=== PATIENT | female | born 1960 | race Caucasian/White ===

== ENCOUNTER → 2017-08-11 | Outpatient (CLI) | payer OTHER ==
--- NOTE | 2017-08-11 10:29 | CT ---
EXAMINATION TYPE: CT sinus wo con DATE OF EXAM: 08/11/2017 COMPARISON: NONE HISTORY: Sinusitis CT DLP: 609.[address] of the paranasal sinuses was performed in the axial and coronal planes. Bone and soft tissue settings are submitted. The paranasal sinuses demonstrate normal aeration and development. Minimal mucosal thickening left maxillary sinus. No air fluid levels. The osteal meatal units are patent bilaterally. The nasal septum is midline. No bony destructive changes are seen within the field of view. IMPRESSION: Minimal mucosal thickening left maxillary sinus.
== END | disposition home or self-care (01) ==
LOC: RADCTMAIN 09:41
PROVIDERS: ATTEND Family Medicine
DX: J34.89 Other specified disorders of nose and nasal sinuses (principal)
CPT/HCPCS: 70486

== ENCOUNTER → 2017-12-08 | Outpatient (CLI) | payer OTHER ==
--- NOTE | 2017-12-08 10:59 | US ---
EXAMINATION TYPE: US abdomen complete DATE OF EXAM: 12/08/2017 COMPARISON: CT 2017 CLINICAL HISTORY: R10.11 Right upper quadrant pain. Intermittent RUQ pain and nausea x 6 months, hist ory of cholecystectomy EXAM MEASUREMENTS: Liver Length: 17.9 cm Gallbladder Wall: surgically absent CBD: 1.0 cm Spleen: 14.5 cm Right Kidney: 11.1 x 5.5 x 5.4 cm Left Kidney: 12.6 x 5.3 x 5.3 cm Difficult and limited study due to patient body habitus Pancreas: visualized portions wnl, tail obscured by overlying midline bowel gas Liver: measures in upper limits of normal, mildly heterogeneous Gallbladder: surgically absent Evidence for sonographic Butler's sign: yes CBD: measures in upper limits of normal for post cholecystectomy Spleen: enlarged Right Kidney: wnl Left Kidney: 2.1 x 1.3 x 1.6cm complex area medial mid pole, possible parapelvic cyst Upper IVC: wnl Abd Aorta: visualized portions wnl, distal portion obscured by overlying midline bowel gas IMPRESSION: 1. Peripelvic cyst is suspected within the left mid kidney.
== END | disposition home or self-care (01) ==
LOC: RADUSWWP 07:03
PROVIDERS: ATTEND Family Medicine
DX: R10.11 Right upper quadrant pain (principal)
CPT/HCPCS: 76700

== ENCOUNTER → 2018-06-08 | Outpatient (CLI) | payer OTHER ==
--- NOTE | 2018-06-11 13:20 | MM ---
Reason for exam: clinical finding. Last mammogram was performed 5 years and 11 months ago. History: Patient is postmenopausal. Indicated problem(s): non-bloody discharge in the right breast. Physical Findings: Nurse did not find any significant physical abnormalities on exam. MG Diagnostic Mammo w CAD MATTHEW Bilateral CC, MLO, and XCCL view(s) were taken. Prior study comparison: June 28, 2012, bilateral digital screening mammo w/CAD. May 07, 2009, bilateral digital screening mammogram. There are scattered fibroglandular densities. No discrete abnormality. ASSESSMENT: Incomplete: need additional imaging evaluation, BI-RAD 0 RECOMMENDATION: Ultrasound of both breasts.
--- NOTE | 2018-06-11 13:24 | USB ---
History: Patient is postmenopausal. US Breast BILAT Bilateral complete breast ultrasound includes all four quadrants, the retroareolar region and axilla. Finding demonstrates Posterior nipple on the right breast ductal ectasia. No other solid or cystic lesion seen in either breast. These results were verbally communicated with the patient and result sheet given to the patient on 06/08/18. ASSESSMENT: Benign, BI-RAD 2 RECOMMENDATION: Clinical management. Routine screening mammogram of both breasts in 1 year.
== END ==
LOC: RADMAMWWP 14:02
PROVIDERS: ATTEND Family Medicine
DX: R92.8 Other abnormal and inconclusive findings on diagnostic imaging of breast (principal)
CPT/HCPCS: 77066

== ENCOUNTER 2018-12-24 12:10 | Emergency (ER) | payer OTHER ==
[2018-12-24 12:24] VITALS: RESP 18; TEMP 98.9
--- NOTE | 2018-12-24 12:40 | ED ---
Upper Extremity HPI - General Chief Complaint: Extremity Injury, Upper Stated Complaint: Hand/finger laceration Source: patient Mode of arrival: wheelchair Limitations: no limitations - History of Present Illness Initial Comments: 4-year-old female presented for chief complaint of finger laceration. Patient states she cut her left middle finger with a silk trimmer. She states there are 2 areas that were cut by the tremor. She states there is a very superficial laceration to the tip of the deeper one at the base. Patient states that she is able to range the finger and has full sensation at the tip. Patient denies any other areas of injury. Patient is unsure of her last tetanus. Remaining ROS (- ). upon arrival patient appears well but active bleeding. - Related Data Home Medications Medication Instructions Recorded Confirmed Aspirin EC [Ecotrin] 81 mg PO DAILY 03/26/14 04/13/17 Citalopram Hydrobromide 40 mg PO QAM 03/26/14 04/15/17 [Citalopram HBr] HYDROcodone/APAP 7.5-325MG [Palo 1 tab PO Q6H PRN 12/03/14 04/15/17 7.5-325] Pregabalin [Lyrica] 150 mg PO BID 12/03/14 04/15/17 Esomeprazole Magnesium [NexIUM] 20 mg PO DAILY 01/17/15 04/15/17 L.acidoph,Paracasei, B.lactis 1 each PO DAILY 04/13/17 04/15/17 [Probiotic] Meloxicam 15 mg PO DAILY 04/13/17 04/13/17 Previous Rx's Medication Instructions Recorded Cephalexin [Keflex] 500 mg PO Q8HR 7 Days #21 cap 12/24/18 Allergies Allergy/AdvReac Type Severity Reaction Status Date / Time No Known Allergies Allergy Verified 04/15/17 07:24 Review of Systems ROS Statement: Those systems with pertinent positive or pertinent negative responses have been documented in the HPI. ROS Other: All systems not noted in ROS Statement are negative. Past Medical History Past Medical History: GERD/Reflux, Osteoarthritis (OA) Additional Past Medical History / Comment(s): Hiatal Hernia,steroid injection Feb 2017 History of Any Multi-Drug Resistant Organisms: None Reported Past Surgical History: Back Surgery, Cholecystectomy, Hysterectomy Additional Past Surgical History / Comment(s): LOWER BACK FUSION, EGD, COLONOSCOPY. Past Anesthesia/Blood Transfusion Reactions: No Reported Reaction Past Psychological History: Anxiety Smoking Status: Former smoker Past Alcohol Use History: Daily Past Drug Use History: Marijuana - Past Family History Mother Family Medical History: No Reported History Additional Family Medical History / Comment(s): PARKINSONS Father Family Medical History: Hypertension General Exam - General Exam Comments Initial Comments: General: The patient is awake and alert, in no distress, and does not appear acutely ill. Eye: Pupils are equal, round and reactive to light, extra-ocular movements are intact. No nystagmus. There is normal conjunctiva bilaterally. No signs of icterus. Cardiovascular: There is a regular rate and rhythm. No murmur, rub or gallop is appreciated. Respiratory: Lungs are clear to auscultation, respirations are non-labored, breath sounds are equal. No wheezes, stridor, rales, or rhonchi. Musculoskeletal: Normal ROM, no tenderness. Strength 5/5. Sensation intact. Pulses equal bilaterally 2+. Neurological: A&O x 3. CN II-XII intact, There are no obvious motor or sensory deficits. Coordination appears grossly intact. Speech is normal. Skin: Skin is warm and dry and no rashes, irregular laceration approximately 2.5cm of the left middle finger just distal to the MCP joint on the ventral aspect. Patient is able to range at the digit at the DIP and PIP. No obvious limitations. Patient refuses to strength test secondary to pain. At the tip on the ventral aspect of the third digit of the left hand there is a very small skin flap less than 1cm Edges approximated. Psychiatric: Cooperative, appropriate mood & affect, normal judgment. Limitations: no limitations Course Vital Signs 12/24/18 12:22 Temperature 98.9 F Pulse Rate 81 Respiratory 18 Rate Blood Pressure 141/94 O2 Sat by Pulse 97 Oximetry Procedures - Laceration Laceration #1 Consent Obtained: verbal consent Indication: laceration Site: hand, other (left third digit ventral aset) Size (cm): 2 Description: irregular Depth: involves tendon Anesthetic Used: lidocaine 1% Anesthesia Technique: nerve block Amount (mls): 5 Pre-repair: wound explored, irrigated extensively Size of Sutures: 5-0 Number of Sutures: 5 Technique: simple, interrupted Patient Tolerated Procedure: well, no complications Additional Comments: skin edges very irregular due to the cause of injury, approximated wound edges loosely as Dr. Keane recommended upon consultation. Medical Decision Making - Medical Decision Making 4-year-old female presented for chief complaint of left middle finger laceration from hedge trimmers. Laceration extensively irrigated, digital block performed. wound edges approximated. ROM intact, no fixed positioning. Strength tested after repair appears intact. Prior to anesthesia sensation intact. Capillary refill prior to and after repair < 3 seconds. XR no FB or osseous inju ry. Tetatnus updated. Abx initiated. Consulted ortho with concern for tendon injury given location and depth of cut. Recommend abx, bandage, repair and discharge with f/u Wednesday. Patient agreeable with care plan aware of importance of abx, and followup. Disposition Clinical Impression: Finger laceration, Finger laceration involving tendon Disposition: HOME SELF-CARE Condition: Good Instructions (If sedation given, give patient instructions): Finger Laceration (ED), Tendon Laceration (ED) Additional Instructions: Please use medication as discussed. Please follow-up with orthopedic surgery on Wednesday, Dr. Keane--number provided below. Please return to emergency room if the symptoms increase or worsen or for any other concerns. Prescriptions: Cephalexin [Keflex] 500 mg PO Q8HR 7 Days #21 cap Is patient prescribed a controlled substance at d/c from ED?: No Referrals: Jerry Lovelace MD [Primary Care Provider] - 1-2 days Leonardo Keane MD [STAFF PHYSICIAN] - 1-2 days Time of Disposition: 14:31
[2018-12-24] MEDS ORDERED: DIPH,PERTUS(ACELL)TETVAC-LF 0.5 ML VIAL IM ONE (12:41)
[2018-12-24] MEDS ORDERED: ceFAZolin 1,000 MG VIAL (IM USE) IM STA (12:46)
[2018-12-24] MEDS ORDERED: LIDOCAINE 1% INJ 10MG/ML (20 ML MDV) SQ ONE (13:00)
[2018-12-24] MEDS ORDERED: Acetaminophen-Codeine 300-30mg TAB PO STA (13:02)
--- NOTE | 2018-12-24 13:10 | XR ---
EXAMINATION TYPE: XR hand complete LT DATE OF EXAM: 12/24/2018 COMPARISON: NONE HISTORY: Pain third digit TECHNIQUE: Three views are submitted. FINDINGS: The osseous structures are intact. The joint spaces are preserved and there is no acute fracture or dislocation. Diffuse osteopenia IMPRESSION: 1. No definite acute fracture or dislocation if symptoms persist, follow-up study in 7 to 10 days wo uld be suggested
[2018-12-24 15:15] VITALS: BP 136/78; PULSE 69
== END 2018-12-24 14:45 | disposition home or self-care (01) ==
LOC: EC 12:10
DX: S61.213A Laceration without foreign body of left middle finger without damage to nail, initial encounter (principal); K21.9 Gastro-esophageal reflux disease without esophagitis; M19.90 Unspecified osteoarthritis, unspecified site; F41.9 Anxiety disorder, unspecified; Z87.891 Personal history of nicotine dependence; Z79.1 Long term (current) use of non-steroidal anti-inflammatories (NSAID); Z79.82 Long term (current) use of aspirin; Z79.899 Other long term (current) drug therapy; Z98.1 Arthrodesis status; Z23 Encounter for immunization; W27.8XXA Contact with other nonpowered hand tool, initial encounter; Y93.89 Activity, other specified
CPT/HCPCS: 73130; 90715; 99283; 12001; 90471; 96372; J0690; J2001

== ENCOUNTER → 2019-07-03 | Outpatient (CLI) | payer OTHER ==
--- NOTE | 2019-07-04 09:53 | MM ---
Reason for exam: screening (asymptomatic). Last mammogram was performed 1 year and 1 month ago. History: Patient is postmenopausal. Physical Findings: A clinical breast exam by your physician is recommended on an annual basis and results should be correlated with mammographic findings. MG 3D Screening Mammo W/Cad Bilateral CC and MLO view(s) were taken. Prior study comparison: June 08, 2018, bilateral MG diagnostic mammo w CAD MATTHEW. June 28, 2012, bilateral digital screening mammo w/CAD. The breast tissue is almost entirely fat. No significant changes when compared with prior studies. ASSESSMENT: Benign, BI-RAD 2 RECOMMENDATION: Routine screening mammogram of both breasts in 1 year.
== END | disposition home or self-care (01) ==
LOC: RADMAMWWP 10:57
PROVIDERS: ATTEND Family Medicine
DX: Z12.31 Encounter for screening mammogram for malignant neoplasm of breast (principal)
CPT/HCPCS: 77063; 77067

== ENCOUNTER → 2019-07-14 | Outpatient (CLI) | payer OTHER ==
--- NOTE | 2019-07-14 16:39 | NM ---
EXAMINATION TYPE: NM bone/joint limited DATE OF EXAM: 07/14/2019 COMPARISON: NONE HISTORY: Mid back pain TECHNIQUE: After the intravenous administration of 25.3 mCi Tc 99m MDP. Images acquired 4 hours pos t injection. Multiple views of the chest and abdomen are submitted. There is no abnormal uptake within the visualized osseous structures to suggest acute process. Soft t issue uptake is normal. Uptake at the costovertebral angles is likely degenerative. Cervical spine up take may be due to facet arthropathy. Mild uptake in the lumbar spine may be due to facet arthropathy , degenerative disc change. IMPRESSION: No acute osseous abnormality. Findings likely due to osteoarthritic change. Consider plai n film correlation versus alternate imaging for further evaluation.
== END | disposition home or self-care (01) ==
LOC: RADNMMAIN 10:44
PROVIDERS: ATTEND Family Medicine
DX: S22.050A Wedge compression fracture of T5-T6 vertebra, initial encounter for closed fracture (principal); S22.060A Wedge compression fracture of T7-T8 vertebra, initial encounter for closed fracture
CPT/HCPCS: 78300; A9503

== ENCOUNTER → 2020-11-01 | Outpatient (CLI) | payer OTHER ==
--- NOTE | 2020-11-01 12:04 | XR ---
EXAMINATION TYPE: XR Hip Complete RT DATE OF EXAM: 11/01/2020 COMPARISON: NONE HISTORY: Pain TECHNIQUE: 2 views submitted FINDINGS: There is no evidence of erosive change or acute fracture. Mild concentric narrowing the joint space. Hypertrophic spurring along the greater trochanter. Calcifications in the pelvis are nonspecific. Art hropathy of the SI joint. IMPRESSION: 1. Arthropathy.
--- NOTE | 2020-11-01 12:05 | XR ---
EXAM TYPE: LUMBAR SPINE X RAY SERIES COMPARISON: NONE HISTORY: Pain TECHNIQUE: 4 views are submitted. FINDINGS: Alignment is anatomic. The pedicles are intact. The transverse processes are intact. Surgical clips in the gallbladder fossa. Hypertrophic and degenerative changes of the spine. Postsurgical change L5 -S1. Vascular calcifications. Diffuse osteopenia. Correlate for sacroiliitis. IMPRESSION: 1. Postsurgical change with multilevel hypertrophic and degenerative changes. 2. Correlate for sacroiliitis.
== END | disposition home or self-care (01) ==
LOC: RADXRMAIN 11:32
PROVIDERS: ATTEND Family Medicine
DX: M12.851 Other specific arthropathies, not elsewhere classified, right hip (principal); M47.816 Spondylosis without myelopathy or radiculopathy, lumbar region; Z98.890 Other specified postprocedural states
CPT/HCPCS: 72100; 73502

== ENCOUNTER → 2020-11-13 | Outpatient (CLI) | payer OTHER ==
--- NOTE | 2020-11-14 00:24 | CT ---
EXAMINATION TYPE: CT abdomen pelvis wo con DATE OF EXAM: 11/13/2020 HISTORY: 60-year-old female with back pain and clinical concern for renal stone COMPARISON: Abdominopelvic CT dated 03/19/2017 CT DLP: 1497.20 mGycm. Automated Exposure Control for Dose Reduction was Utilized. TECHNIQUE: CT scan of the abdomen and pelvis is performed without IV contrast. FINDINGS: Lack of intravenous and oral contrast limits evaluation of solid and hollow organs. Included lower lungs: Small pneumatocele in the right middle lobe enlarged compared to prior. Could b e on the basis of emphysema/COPD early changes or possibly remote infection or injury. Included cardiac structures: Minimal calcifications project over the expected region of the right cor onary arteries. Liver: 1.5 cm hypoattenuating lesion in the right hepatic lobe stable since 03/19/2017 likely of benig n etiology representing a cyst. No evidence of the right hepatic lobe is again demonstrated. Gallbladder: Cholecystectomy changes Spleen: Prominence of the spleen is again demonstrated. Pancreas: Unremarkable Adrenal glands: Stable 1.6 cm right adrenal adenoma measuring up to 1.6 cm. Left adrenal gland unrema rkable. Kidneys and ureters: Unremarkable Biliary system: No abnormal dilatation Urinary bladder: Partially distended Included lower esophagus: Surgical changes at the gastroesophageal junction without significant cool e in appearance compared to prior. Stomach: Unremarkable Small bowel: Unremarkable Large bowel: Unremarkable Appendix: Not definitely identified. No inflammatory changes in the right lower quadrant. Hernias: Small fat-containing umbilical hernia, no significant change. Uterus and adnexa: Nonvisualized uterus. Unremarkable adnexal regions with surgical clips. Major vascular structures: Visualized aorta is nonaneurysmal. Scattered atherosclerotic calcification s are seen in the included aorta and causes mild narrowing at the level of aortic bifurcation. Calcif ications extend into the distal aortic branches. Peritoneum: No pneumoperitoneum or ascites Lymph nodes: There is a partially calcified 1 cm left midabdomen lesion stable compared to prior. No enlarged retroperitoneal or pelvic lymph nodes. Osseous structures: No acute osseous abnormality. Degenerative changes in the thoracic and lumbar spi ne are demonstrated and better visualized/described on dedicated CT lumbar spine from the same day pl ease refer to separate report. Surgical changes from posterior fixation at L5-S1. Soft tissue: No acute osseous abnormality. IMPRESSION: 1. No evidence of acute abdominal or pelvic processes. 2. No evidence of hydronephrosis or nephrolithiasis. 3. No significant change compared to 03/19/2017.
== END | disposition home or self-care (01) ==
LOC: RADCTMAIN 17:17
PROVIDERS: ATTEND Family Medicine
DX: N20.0 Calculus of kidney (principal); M51.36 Other intervertebral disc degeneration, lumbar region
CPT/HCPCS: 74176

== ENCOUNTER → 2021-04-17 | Outpatient (CLI) | payer OTHER ==
--- NOTE | 2021-04-18 10:49 | ECHOF ---
Referral Reason:R94.31 abn ekg MEASUREMENTS -------- HEIGHT: 157.5 cm WEIGHT: 118.4 kg BP: RVIDd: 4.3 cm (< 3.3) IVSd: 1.1 cm (0.6 - 1.1) LVIDd: 4.5 cm (3.9 - 5.3) LVPWd: 1.2 cm (0.6 - 1.1) IVSs: 1.3 cm LVIDs: 2.7 cm LVPWs: 1.2 cm LAESV Index (A-L): 25.22 ml/m Ao Diam: 3.6 cm (2.0 - 3.7) AV Cusp: 2.2 cm (1.5 - 2.6) LA Diam: 4.0 cm (2.7 - 3.8) MV EXCURSION: 13.477 mm (> 18.000) MV EF SLOPE: 80 mm/s (70 - 150) EPSS: 0.9 cm MV E Jose: 0.59 m/s MV DecT: 193 ms MV A Jose: 0.79 m/s MV E/A Ratio: 0.75 RAP: 5.00 mmHg RVSP: 28.95 mmHg FINDINGS -------- Sinus rhythm. This was a technically adequate study. The left ventricular size is normal. There is borderline concentric left ventricular hypertrophy. Overall left ventricular systolic function is normal with, an EF between 55 - 60 %. The right ventricle is mild to moderately enlarged. Normal LA size by volume 22+/-6 ml/m2. The right atrium was not well visualized. Interatrial and interventricular septum intact. There is no evidence of aortic regurgitation. There is no evidence of aortic stenosis. No mitral regurgitation. Mild tricuspid regurgitation present. There is no evidence of pulmonary hypertension. The right v entricular systolic pressure, as measured by Doppler, is 28.95mmHg. There is no pulmonic regurgitation present. The aortic root size is normal. IVC Not well visulized. Echo free space represents a pericardial fat pad. There is no pericardial effusion. CONCLUSIONS -------- 1. The left ventricular size is normal. 2. There is borderline concentric left ventricular hypertrophy. 3. Overall left ventricular systolic function is normal with, an EF between 55 - 60 %. 4. The right ventricle is mild to moderately enlarged. 5. Mild tricuspid regurgitation present. CONSULTING SME: Viviane Villa RDCS
== END | disposition home or self-care (01) ==
LOC: RADECHMAIN 15:02
PROVIDERS: ATTEND Family Medicine
DX: I07.1 Rheumatic tricuspid insufficiency (principal); R94.31 Abnormal electrocardiogram [ECG] [EKG]
CPT/HCPCS: 93306

== ENCOUNTER → 2022-01-20 | Outpatient (CLI) | payer OTHER ==
--- NOTE | 2022-01-22 21:44 | XR ---
Thoracic spine HISTORY: Pain 2 views of the thoracic spine on 3 images Thoracic vertebral bodies show preserved height and alignment. Is multilevel spondylosis. Loss of dis c height is present at intervertebral levels. Vacuum phenomenon present at intervertebral level at th e mid to lower thoracic spine. Bone mineralization is reduced. IMPRESSION: Degenerative disc disease, osteopenia
--- NOTE | 2022-01-22 23:15 | XR ---
EXAMINATION TYPE: XR lumbar spine 2 or 3V DATE OF EXAM: 01/21/2022 CLINICAL HISTORY: Pain. History of prior surgery. TECHNIQUE: Frontal and lateral images of the lumbar spine are obtained. COMPARISON: CT lumbar spine report November 13, 2020 FINDINGS: There are 5 lumbar type vertebral bodies identified. Posterior interpedicular rods and scr ews along with artificial disc material L5-S1 level is present. Slight grade 1 retrolisthesis L4 on L 5. Moderate disc space narrowing and anterior spurring L2-L3 level. Vertebral body heights are mainta ined. Mild to moderate anterior spurring T12-L1 level. Overlying cholecystectomy clips are present. M oderate overlying arterial vascular calcification is seen. IMPRESSION: As above.
== END | disposition home or self-care (01) ==
LOC: RADXRMAIN 15:53
PROVIDERS: ATTEND Family Medicine
DX: M51.34 Other intervertebral disc degeneration, thoracic region (principal); M85.88 Other specified disorders of bone density and structure, other site
CPT/HCPCS: 72070; 72100

== ENCOUNTER → 2022-02-05 | Outpatient (CLI) | payer OTHER ==
--- NOTE | 2022-02-05 08:28 | CT ---
EXAMINATION TYPE: CT lumbar spine wo con CT DLP: 2316.5 mGycm, Automated exposure control for dose reduction was used. DATE OF EXAM: 02/05/2022 8:12 AM COMPARISON: CT lumbar spine 11/13/2020. CLINICAL INDICATION:Female, 61 years old with history of M54.16 lumbar neuritis, right lower back alma n TECHNIQUE: Multiple axial images were obtained from the midportion of T11 through the sacroiliac merna nts. Soft tissue and bone windows in coronal and sagittal planes were obtained and reviewed. FINDINGS: Alignment: There are 5 lumbar type vertebral bodies within normal alignment. Bone: No evidence of fracture is identified. Multilevel disc degeneration changes are seen throughou t the spine. Fixation hardware at L5-S1. Hardware appears intact. Laminectomy changes at L5. Discs: T9-T10: Disc bulge with mild spinal canal stenosis. The neural foramen are probably narrowed. T10-T11: Disc bulge with mild spinal canal narrowing. The neural foramen are patent. T11-T12: The spinal canal and neural foramen are patent. T12-L1: Left foraminal disc protrusion protrusion similar to prior which narrows the subarticular por tion on the left. The neural foramen is mildly narrowed on the left. The right neural foramen is fiore nt. L1-L2: No spinal canal or neural foraminal stenosis is identified. L2-L3: Disc bulge and facet joint arthropathy with moderate spinal canal narrowing. The neural forame n are mildly narrowed. L3-L4: Disc bulge and facet joint arthropathy with mild spinal canal narrowing. The neural foramen ar e mildly narrowed. L4-L5: Disc bulging without significant spinal canal stenosis. The neural foramen are patent. L5-S1: Streak artifact limits evaluation. The spinal canal appears patent. The neural foramen are pat ent. Other: Atherosclerosis of the arterial vasculature. IMPRESSION: 1. No evidence of fracture of the lumbar spine. 2. Disc degeneration changes resulting in moderate spinal canal stenosis at L2-L3 and left subarticul ar disc protrusion at T12-L1 which mildly narrows the left foramen. Findings are similar to prior 10/17.
== END | disposition home or self-care (01) ==
LOC: RADCTMAIN 07:48
PROVIDERS: ATTEND Family Medicine
DX: M54.16 Radiculopathy, lumbar region (principal)
CPT/HCPCS: 72131

== ENCOUNTER → 2022-04-21 | Outpatient (CLI) | payer OTHER ==
--- NOTE | 2022-04-22 09:14 | MM ---
Reason for Exam: Screening (asymptomatic). Last mammogram was performed 2 year(s) and 10 month(s) ago. Patient History: Menarche at age 11. First Full-Term at age 23. Hysterectomy at age 40. Postmenopausal. Risk Values: Karon 5 year model risk: 1.7%. NCI Lifetime model risk: 7.4%. Prior Study Comparison: 06/28/2012 Bilateral Screening Mammogram, [facility]. 06/08/2018 Bilateral Diagnostic Mammogram, [facility]. 07/03/2019 Bilateral Screening Mammogram, [facility]. Tissue Density: The breast tissue is almost entirely fat. Findings: Analyzed By CAD. Benign-appearing calcifications bilaterally. There is no suspicious group of microcalcifications or new suspicious mass in either breast. Overall Assessment: Benign, BI-RAD 2 Management: Screening Mammogram of both breasts in 1 year. A clinical breast exam by your physician is recommended on an annual basis and results should be correlated with mammographic findings. [facility] will attempt to contact patient to return for supplemental views and ultrasound if indicated. Electronically signed and approved by: Rex Montague DO
== END | disposition home or self-care (01) ==
LOC: RADMAMWWP 09:55
PROVIDERS: ATTEND Family Medicine
DX: Z12.31 Encounter for screening mammogram for malignant neoplasm of breast (principal); Z78.0 Asymptomatic menopausal state
CPT/HCPCS: 77063; 77067

== ENCOUNTER → 2022-04-27 | Outpatient (CLI) | payer OTHER ==
[2022-04-27 11:40] VITALS: BP 104/79; PULSE 89; RESP 18; TEMP 98.2
--- NOTE | 2022-04-29 07:40 | P.PAINPG ---
PQRS Measure Charge Sheet Comment: HISTORY OF PRESENT ILLNESS: 61 yr old female at side as a referral from Dr Mann presents today w severe and chronic LBP secondary to disc bulges, spinal stenosis and facet arthropathy without myelopathy for evaluation. Pt states pain level is at 6/10 in intensity, constant, localized in the right lower lumbar spine where it meets the tailbone, sharp in character w shooting pain towards the RLE. Pain is provoked by bending, lifting. Pain is alleviated by medications ([place], Lyrica, Mobic), topicals, heat, PT years ago, chiropractic treatments semiweekly for 12 months in July 08, laying supine on her right side, use of a home Jacuzzi, repositioning and rest. PMH: GERD, OA, HH, Anxiety, Nephrolithiasis PSH: EGD/ Colonoscopy (2018), L5-S1 Fusion, Lumbar Laminectomy, Cholecystectomy, Hysterectomy SH: Former tobacco user, Occasional ETOH use, +THC use FH: Mo- Parkinson's Disorder. Fa- HTN. All: NKDA Meds: See list REVIEW OF ORGAN SYSTEMS: CONSTITUTIONAL: No fevers or chills. No recent weight loss. NEUROLOGICAL: + numbness and tingling along the distal extremities. No seizure disorders or headaches. MUSCULOSKELETAL: + pain PSYCHIATRIC: Denies current depression or suicidal thoughts. Physical Examinations : Constitutional : Cooperative , not in acute distress . Neurologic : Cranial nerve II to XII intact. No focal neurological deficits. Psychiatric : alert & oriented x 3. Matching mood & appropriate affect. Judgment & insight intact. Musculoskeletal : Cervical Spine Motor strength in the deltoid and biceps: Normal right side. Normal Left side Motor strength biceps and the wrist extensors: Normal right side . Normal left side Motor strength in the triceps muscle: Normal right side. Normal left side Deep tendon reflexes: Normal at the biceps. Normal at Brachioradialis. Normal at triceps Vertebral body tenderness to deep palpation over Cervical facet loading test: positive bilaterally Spurling test: positive bilaterally Neck distraction test: positive bilaterally Nelson sign: positive bilaterally Lumbar spine Motor strength lower extremities ,thigh and legs 5/5 Right side , 5/5 Left side Deep tendon reflexes : Normal Knee Jerk. Normal Ankle Jerk Vertebral body tenderness over L5 Lumbar facet Loading Test: positive Right / positive Left Range of motion of the lumbar spine Flexion 30 degrees, extension 10 degrees Straight Leg Raise test: Left/ Right positive at degree Tro test: positive right / positive left. Severe tenderness over the Sacroiliac joint on the Right / Left sides Gaenslen test: positive bilaterally Seated flexion test: positive bilaterally. Sacral spine : Severe tenderness over the Sacroiliac joint: right side / left side Range of motion: Flexion of the lumbar spine <60 degrees Range of motion: Extension of the lumbar spine <20 degrees Gaenslen's Test positive Tariq's Test positive Tor test: positive right side / left side Thigh Thrust Test Sacral Thrust Test Imaging: CT without contrast of the lumbar spine from 02/05/22 reviewed Assessment/ Plan : Lumbar DDD, lumbar stenosis Recommendation of R TF JENNIFER L5-S1. May need a series of injections, up to 3 within a six-month timeframe, for optimal pain relief. Risks, benefits of procedure discussed and patient verbalized understanding. Admits to aspirin or anti- coagulant use or medical history of diabetes. Protocol for discontinuation/ continuation of medications frida procedure discussed. All questions answered. I have spent greater than 30 minutes on patient care today. Dr Mead was available by phone for the evaluation of this patient. The time was used to review the medical records including relevant urine studies and Prescription history (MAPs), review of the available imaging, evaluation and examination of the patient, coordination of care with the medical staff and if applicable referring physicians, as well as creation of the medical record PQRS Narrative: Smoking Status Former smoker Home Medications: Ambulatory Orders Aspirin EC [Ecotrin] 81 mg PO DAILY 03/26/14 Citalopram Hydrobromide [Citalopram HBr] 40 mg PO QAM 03/26/14 HYDROcodone/APAP 7.5-325MG [[place] 7.5-325] 1 tab PO Q6H PRN 12/03/14 Pregabalin [Lyrica] 150 mg PO BID 12/03/14 Esomeprazole Magnesium [NexIUM] 20 mg PO DAILY 01/17/15 L.acidoph,Paracasei, B.lactis [Probiotic] 1 each PO DAILY 04/13/17 Meloxicam 15 mg PO DAILY 04/13/17 Cephalexin [Keflex] 500 mg PO Q8HR 7 Days #21 cap 12/24/18 Controlled Substance Measures - Controlled Substance Measures Is patient prescribed a controlled substance at discharge?: No
== END ==
LOC: PNWHC3 10:54
PROVIDERS: ATTEND Specialist
DX: M51.36 Other intervertebral disc degeneration, lumbar region (principal); M48.061 Spinal stenosis, lumbar region without neurogenic claudication; Z79.82 Long term (current) use of aspirin; K21.9 Gastro-esophageal reflux disease without esophagitis; M19.90 Unspecified osteoarthritis, unspecified site; F41.9 Anxiety disorder, unspecified; Z87.891 Personal history of nicotine dependence
CPT/HCPCS: 99211

== ENCOUNTER 2022-05-26 12:15 | Day surgery (SDC) | payer OTHER ==
[2022-05-22 10:14] VITALS: BMI 45.7
[~2022-05-26 12:15] MED LIST: LACTATED RINGERS 1,000 ML IV SCH
[2022-05-26 12:33] VITALS: TEMP 97
[2022-05-26] MEDS ORDERED: DEXAMETHASONE SOD PHOSPHATE 10 MG/ML 1 ML VIAL ONE (12:54)
[2022-05-26] MEDS ORDERED: IOPAMIDOL M200 10 ML VIAL ONE (12:54)
[2022-05-26] MEDS ORDERED: MIDAZOLAM 2 MG/2 ML VIAL ONE (12:54)
[2022-05-26] MEDS ORDERED: fentaNYL (PF) 50 MCG/ML 2 ML AMP ONE (12:54)
--- NOTE | 2022-05-26 13:07 | P.PCN ---
Date of Procedure: 05/26/22 Description of Procedure: PREOPERATIVE DIAGNOSIS: Lumbar radiculopathy POSTOPERATIVE DIAGNOSIS: Lumbar radiculopathy PROCEDURE 1. Transforaminal epidural steroid injection under fluoroscopic guidance right L5-S1 2. Lumbar epidurogram IMAGING Fluoroscopy was used, images where saved to the medical record ANESTHESIA: Medication Administered by: Nurse Sedation Type: Moderate Sedation Supervision start time: 1257 Sedation Supervision end time: 1308 PROCEDURE DESCRIPTION / TECHNIQUE: The patient was seen and identified in the preoperative area. Risks, benefits, complications, and alternatives were discussed with the patient. The patient agreed to proceed with the procedure and signed the consent, vital signs were stable prior to the procedure. Patient was taken to the OR and time out was completed. The patient was placed in the prone position on procedure table and a pillow was placed under the abdomen to reduce lumbar lordosis. The lumbosacral area was prepped and draped in the usual sterile fashion. Vital signs were closely monitored during the procedure. Conscious sedation was used. Using oblique fluoroscopy, the chin of the "Manny dog" at the pedicle and the skin and deeper tissues just below was localized with 1% lidocaine. Subsequently, a 22-gauge 5-inch spinal needle was advanced under a tunneled view fluoroscopic guidance just underneath the chin of the "Manny dog". Under lateral fluoroscopy, the needle was then advanced to the posterior border interforaminal space. After negative aspiration of CSF and blood and with no paresthesias, 1 mL of Omnipaque-180 contrast dye was injected excellent epidurogram. Subsequently, a solution totalling 2ml of dexamethasone and PFNS was injected after negative aspiration (total of 10mg of dexamethasone was used). The needle was removed intact. COMPLICATIONS: None DISPOSITION: The patient was placed in a supine position and transferred to the recovery area in a stable condition for observation. There was no evidence of lower extremity motor or sensory deficit after the procedure. Patient was discharged from the recovery room after meeting discharge criteria. Home discharge instructions were given to the patient by the staff. The patient was reexamined prior to discharge. Follow up as directed.
[2022-05-26] MEDS ORDERED: IV FLUID CONTINUATION 1,000 ML IV ONE (13:10)
[2022-05-26 13:14] VITALS: RESP 16
[2022-05-26 13:26] VITALS: BP 101/66; PULSE 61
--- NOTE | 2022-05-26 13:34 | FL ---
Intraoperative/procedural fluoroscopic services were provided for right transforaminal epidural injec tion. Total fluoroscopy time is 10 seconds with a total of 1 submitted image to PACS. Please see the operative note for further details.
== END 2022-05-26 13:40 | disposition home or self-care (01) ==
LOC: ORPAIN 12:15
PROVIDERS: ATTEND Hospitalist
DX: M54.16 Radiculopathy, lumbar region (principal)
CPT/HCPCS: 64483

== ENCOUNTER → 2022-06-03 | Outpatient (CLI) | payer OTHER ==
[2022-06-03 12:45] VITALS: BP 103/59; PULSE 68; RESP 18; TEMP 98.5
--- NOTE | 2022-06-03 15:10 | P.PAINPG ---
PQRS Measure Charge Sheet Comment: A 62 yr old female with a history of severe and chronic low back pain secondary to lumbar DDD and spondylosis with facet arthropathy without myelopathy presents today for evaluation s/p R TFESI L5-S1. Pt states she experienced 80 % pain relief x 2 wks s/p procedure. Pain level is provoked at 5 /10 in intensity, constant, localized in the L lumbar spine, achy in character w shooting towards the L hip. Pain is provoked by bending, twisting, lifting. Pain is alleviated with PT in the past, home exercise as tolerated, hydrotherapy at home, heat, meds ([place], Lyrica, Mobic from Dr Mann), sitting, repositioning and rest. Interventional pain procedures completed include R TFESI L5-S1 Patient is currently on [place], Lyrica, Mobic Patient denies any side effects of the medication(s), denies excessive drowsiness or sleepiness, denies suicidal ideation and reports that the current pain medication is helping to control the pain and improve activities of daily living. Patient denies any motor or sensory deficits. Patient denies any fever or night sweats, denies any change in the bowel movements or urination. Physical Examination: -Constitutional: Cooperative. Not in acute distress . - Neurologic: Cranial nerve II to XII intact. No focal neurological deficits. - Psychatric: Alert & oriented x 3. Matching mood & appropriate affect. Judgment and insight intact. - Musculoskeletal: Cervical spine: Muscle bulk/ tone/ strength in the bilateral upper extremities normal Vertebral body tenderness to palpation over Spurling test positive Distraction test positive Facet loading test positive Thoracic spine Muscle bulk / tone/ strength in the bilateral paraspinal muscles normal Vertebral body tender to palpation over Facet loading test positive Lumbar spine: Motor bulk/ tone/ strength lower extremities , thigh and legs : 5/5 Deep tendon reflexes : Normal Knee Jerk. Normal Ankle Jerk . Vertebral body tenderness to palpation over L4 Lumbar Facet Loading Test positive Straight Leg Raise: positive at 30 degrees right side/ left side Gaenslen's Test positive Sacral spine : Severe tenderness over the Sacroiliac joint: right side / left side Range of motion: Flexion of the lumbar spine <60 degrees Range of motion: Extension of the lumbar spine <20 degrees Gaenslen's Test positive Tor test: positive right side / left side Thigh Thrust Test Sacral Thrust Test Assessment and plan: Chronic low back pain secondary to lumbar degenerative disc disease, spondylosis with facet arthropathy without myelopathy Recommendation of L paramedian L4-L5. May need a series of injections, up to 3 within a 6 mo period, for optimal pain relief. Risks, benefits of procedure discussed and pt verbalized understanding. Denies anticoagulant use or medical history of diabetes. All patient questions answered I have spent less than 30 minutes on patient care today. Dr Mead was available by phone for the evaluation of this patient. The time was used to review the medical records including relevant urine studies and Prescription history (MAPs), review of the available imaging, evaluation and examination of the patient, coordination of care with the medical staff and if applicable referring physicians, as well as creation of the medical record - Pain Location Left Lower Back Non-Pharmacological Interventions: Heat, Home Exercise, Inactivity, Physical Therapy, Relaxation Technique, Sitting, Stretching, Therapeutic Touch Pharmacological Interventions: PRN Medication, Scheduled Medication, Topical Medication PQRS Narrative: Smoking Status Former smoker Hx Alcohol Use (MH) Yes: CASUAL Home Medications: Ambulatory Orders Aspirin EC [Ecotrin] 81 mg PO DAILY 03/26/14 Citalopram Hydrobromide [Citalopram HBr] 40 mg PO QAM 03/26/14 HYDROcodone/APAP 7.5-325MG [[place] 7.5-325] 1 tab PO Q6H PRN 12/03/14 Pregabalin [Lyrica] 150 mg PO BID 12/03/14 Esomeprazole Magnesium [NexIUM] 20 mg PO DAILY 01/17/15 Meloxicam 15 mg PO DAILY 04/13/17 Atorvastatin [Lipitor] 10 mg PO DAILY 05/22/22 Cholecalciferol (Vitamin D3) [Vitamin D3 (125 MCG = 5,000 IU)] 375 mcg PO DAILY 05/22/22 Dicyclomine [Bentyl] 10 mg PO TID 05/22/22 Fluticasone Nasal Arthur [Flonase Nasal Arthur] 2 spray EA NOSTRIL DAILY PRN 05/22/22 Losartan Potassium 100 mg PO DAILY 05/22/22 hydroCHLOROthiazide 25 mg PO DAILY 05/22/22 predniSONE 10 mg PO DAILY 6 Days #21 tab 06/03/22 Controlled Substance Measures - Controlled Substance Measures Is patient prescribed a controlled substance at discharge?: No
== END ==
LOC: PNWHC3 10:13
PROVIDERS: ATTEND Specialist
DX: M47.816 Spondylosis without myelopathy or radiculopathy, lumbar region (principal); M51.36 Other intervertebral disc degeneration, lumbar region; G89.29 Other chronic pain; Z79.82 Long term (current) use of aspirin; Z87.891 Personal history of nicotine dependence
CPT/HCPCS: 99211

== ENCOUNTER → 2022-07-30 | Outpatient (CLI) | payer OTHER ==
--- NOTE | 2022-07-30 13:25 | CT ---
EXAMINATION TYPE: CT cervical spine wo con CT DLP: 928 mGycm, Automated exposure control for dose reduction was used. DATE OF EXAM: 07/30/2022 1:17 PM COMPARISON: None. CLINICAL INDICATION:Female, 62 years old with history of M54.12, Cervical neuritis TECHNIQUE: Axial CT images from the skull base to the inferior aspect of T2 we obtained without intra venous contrast. Coronal and sagittal reformatted images were also reviewed. FINDINGS: Fracture: None. Osseous structures: Multilevel degenerative disc disease changes with endplate spurring and disc oste ophyte complex's. Scattered uncovertebral and facet joint arthropathy are present. Vertebral alignment: Alignment within normal limits. Spinal canal/Neural Foramina: Disc osteophyte complexes at C4-C5 C5-C6 and C6-C7. With at least mild spinal canal stenosis. Facet joint uncovertebral joint arthropathy scattered throughout the cervical spine with varying degrees of neural foraminal stenosis. Findings of neural femoral stenosis are wors e at C4-C5, C5-C6 and C6-C7 with at least moderate to severe bilateral C6-C7 moderate bilateral C5-C6 and C4-C5. Neck soft tissues: Prevertebral soft tissues are within normal limits. Other: The airway is patent. The lung apices are clear. IMPRESSION: 1. No evidence of cervical spine fracture. 2. Moderate multilevel degenerative disc disease with varying degrees of neural foraminal stenosis. N eural foraminal stenosis worse in the lower cervical spine.
== END | disposition home or self-care (01) ==
LOC: RADCTMAIN 12:34
PROVIDERS: ATTEND Family Medicine
DX: M50.121 Cervical disc disorder at C4-C5 level with radiculopathy (principal); M99.71 Connective tissue and disc stenosis of intervertebral foramina of cervical region
CPT/HCPCS: 72125

== ENCOUNTER → 2022-08-03 | Outpatient (CLI) | payer OTHER ==
[2022-08-03 11:38] VITALS: BP 143/90; PULSE 75; RESP 18; TEMP 98.4
--- NOTE | 2022-08-03 14:44 | P.PAINPG ---
PQRS Measure Charge Sheet Comment: A 62 yr old female w at side with a history of severe and chronic LBP secondary to lumbar DDD and spondylosis with facet arthropathy without myelopathy presents today for evaluation s/p L paramedial JENNIFER L4-L5 #1 Pt states she experienced 40 % pain relief x 3 wks s/p procedure. Pain level is provoked at 6/10 in intensity, constant, localized in the lumbar spine, stabbing in character w shooting towards the R hip. Pain is provoked by walking for periods of 10 min or more. Pain is alleviated with PT years ago, chiropractic treatments semi weekly x 3 mo which ended in Mar 2022, heat, medications ([place], Lyrica, Mobic), topicals, repositioning and rest. Interventional pain procedures completed include L paramedian JENNIFER L4-L5 x1 Patient is currently on [place], Lyrica, Mobic Patient denies any side effects of the medication(s), denies excessive drowsiness or sleepiness, denies suicidal ideation and reports that the current pain medication is helping to control the pain and improve activities of daily living. Patient denies any motor or sensory deficits. Patient denies any fever or night sweats, denies any change in the bowel movements or urination. Physical Examination: -Constitutional: Cooperative. Not in acute distress . - Neurologic: Cranial nerve II to XII intact. No focal neurological deficits. - Psychatric: Alert & oriented x 3. Matching mood & appropriate affect. Judgment and insight intact. - Musculoskeletal: Cervical spine: Muscle bulk/ tone/ strength in the bilateral upper extremities normal Vertebral body tenderness to palpation over Spurling test positive Distraction test positive Facet loading test positive TTP Thoracic spine Muscle bulk / tone/ strength in the bilateral paraspinal muscles normal Vertebral body tender to palpation over Facet loading test positive TTP Lumbar spine: Motor bulk/ tone/ strength lower extremities , thigh and legs : 5/5 Deep tendon reflexes : Normal Knee Jerk. Normal Ankle Jerk . Vertebral body tenderness to palpation over L5 Lumbar Facet Loading Test positive Straight Leg Raise: positive at 30 degrees right side/ left side Gaenslen's Test positive Sacral spine : Severe tenderness over the Sacroiliac joint: right side / left side Range of motion: Flexion of the lumbar spine <60 degrees Range of motion: Extension of the lumbar spine <20 degrees Gaenslen's Test positive right side / left side Tor test: positive right side / left side Thigh Thrust Test positive right side / left side Sacral Thrust Test positive right side / left side Assessment and plan: Chronic LBP secondary to lumbar DDD, spondylosis with facet arthropathy without myelopathy Recommendation of R TFESI L5-S1. May need a series of injections for optimal pain relief. Risks, benefits of procedure discussed and pt verbalized understanding. Admits to anticoagulant use or medical history of diabetes. Protocol for discontinuation/ continuation of medications frida procedure discussed. All questions answered. I have spent less than 30 minutes on patient care today. Dr Mead was available by phone for the evaluation of this patient. The time was used to review the medical records including relevant urine studies and Prescription history (MAPs), review of the available imaging, evaluation and examination of the patient, coordination of care with the medical staff and if applicable referring physicians, as well as creation of the medical record PQRS Narrative: Smoking Status Former smoker Hx Alcohol Use (MH) Yes: CASUAL Home Medications: Ambulatory Orders Aspirin EC [Ecotrin] 81 mg PO DAILY 03/26/14 Citalopram Hydrobromide [Citalopram HBr] 40 mg PO QAM 03/26/14 HYDROcodone/APAP 7.5-325MG [[place] 7.5-325] 1 tab PO Q6H PRN 12/03/14 Pregabalin [Lyrica] 150 mg PO BID 12/03/14 Esomeprazole Magnesium [NexIUM] 20 mg PO DAILY 01/17/15 Meloxicam 15 mg PO DAILY 04/13/17 Atorvastatin [Lipitor] 10 mg PO DAILY 05/22/22 Cholecalciferol (Vitamin D3) [Vitamin D3 (125 MCG = 5,000 IU)] 375 mcg PO DAILY 05/22/22 Dicyclomine [Bentyl] 10 mg PO TID 05/22/22 Losartan Potassium 100 mg PO DAILY 05/22/22 hydroCHLOROthiazide 25 mg PO DAILY 05/22/22 Controlled Substance Measures - Controlled Substance Measures Is patient prescribed a controlled substance at discharge?: No
== END ==
LOC: PNWHC3 10:58
PROVIDERS: ATTEND Specialist
DX: M51.36 Other intervertebral disc degeneration, lumbar region (principal); M47.816 Spondylosis without myelopathy or radiculopathy, lumbar region; G89.29 Other chronic pain; Z87.891 Personal history of nicotine dependence; Z79.82 Long term (current) use of aspirin
CPT/HCPCS: 99211

== ENCOUNTER → 2022-08-19 | Outpatient (CLI) | payer OTHER ==
--- NOTE | 2022-08-19 11:14 | XR ---
EXAMINATION TYPE: XR Hip Limited RT DATE OF EXAM: 08/19/2022 COMPARISON: 11/01/2020 HISTORY: Pain TECHNIQUE: 2 views submitted FINDINGS: There is no evidence of erosive change or acute fracture. There is a spur involving greater trochante r. There is moderate axial joint space. Calcifications in the pelvis are nonspecific IMPRESSION: 1. Moderate arthropathy of the hip. 2. Greater trochanter spur can be associated with trochanteric bursitis correlate clinically. Finding s similar to prior exam.
--- NOTE | 2022-08-19 11:36 | XR ---
EXAMINATION TYPE: XR knee limited RT DATE OF EXAM: 08/19/2022 COMPARISON: NONE HISTORY: Pain TECHNIQUE: Three views are submitted. FINDINGS: There is chondrocalcinosis. Osseous structures are intact. No acute fracture seen. Mild narrowing the medial compartment knee joint and patellofemoral joint. Vascular calcifications noted. Soft tissu e calcifications likely are vascular possibly relating to phleboliths. IMPRESSION: 1. Mild osteoarthritis.
== END | disposition home or self-care (01) ==
LOC: RADXRMAIN 10:41
PROVIDERS: ATTEND Family Medicine
DX: M16.11 Unilateral primary osteoarthritis, right hip (principal); M70.61 Trochanteric bursitis, right hip; M17.11 Unilateral primary osteoarthritis, right knee
CPT/HCPCS: 73501

== ENCOUNTER 2022-09-14 06:14 | Day surgery (SDC) | payer OTHER ==
[~2022-09-14 06:14] MED LIST changes: -LACTATED RINGERS 1,000 ML IV SCH; +Pre Op ABX Message 1 EACH MISC MISCELLANE ONE
[2022-09-14 06:55] VITALS: TEMP 97.2
--- NOTE | 2022-09-14 06:59 | P.HPOR ---
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 Location lateral posterior Patient notes that their pain radiates to right lower extremity Activity Modification No Hand Dominance right TREATMENTS COMPLETED: 6 weeks of PT completed? Month and Year of last PT date? No Physician directed home exercise completed? yes Patient has trialed the physician directed home exercise program with temp relief of their symptoms. Medications yes List: Garnett, Lyrica, Tylenol, Aleve, MMJ Alternative interventions Chiropractic: yes Massage therapy: yes R.I.C.E: yes Brace: No Injections Yes How many? 2 Did they help? yes RFA: No SUBJECTIVE: Ms. Hayden presents to the office for an evaluation of their low back pain. Patient reports a throbbing and sharp posterior right lateral lumbar pain ongoing for many years, but has progressed over the past month with a history of a L5-S1 decompression and fusion that was performed by Dr. Huang between the years of [id number]. In addition to their lumbar pain, they do report that it radiates into the right buttock and right lower extremity, associated without numbness and tingling. Patient reports sharp pain into the right foot inbetween the right great and 1st toe. Overall the patient has seen a progressive increase in symptoms since their onset. Ms. Hayden symptoms are exacerbated with increased or prolonged activity, due to this they notes that it is increasingly difficult for Ms. Hayden to complete many of their daily tasks. Patient is having mild sleep disturbances as well due to their ongoing pain and associated symptoms. Regarding treatments, the patient has previously trialed the above listed modalities. Patient has also trialed the modalities of a sherry and HCI as well from PCP. For their symptoms, the patient has been taking Garnett, Lyrica, Tylenol, Aleve, and MMJ. Otherwise the patient denies any f/c/sob/cp, no bladder or bowel retention/incontinence, no perineal numbness/tingling, and ambulates independently. The patients' past social, medical, family, surgical history, as well as review of systems, have been reviewed. Please refer to the Neurosurgery History and Physical form that has been scanned in to our electronic medical record system. 14 points review of systems completed and as stated in HPI, all other systems reviewed are negative. Social History: Reviewed, see appropriate section of the chart for details. P3 Family History: Reviewed, see appropriate section of the chart for details. P2 Past Medical History: Reviewed, see appropriate section of the chart for details. P1 Current Medications: Rx: aspirin 81 mg tablet,delayed release Ref: 0 Instructions: take 1 tablet (81 mg) by oral route once daily Rx: atorvastatin 10 mg tablet Ref: 0 Instructions: take 1 tablet (10 mg) by oral route once daily Rx: BentyL 10 mg/mL intramuscular solution Ref: 0 Instructions: inject 2 milliliters (20 mg) by intramuscular route 4 times per day Rx: CeleXA 40 mg tablet Ref: 0 Instructions: take 1 tablet (40 mg) by oral route once daily Rx: Cozaar 100 mg tablet Ref: 0 Instructions: take 1 tablet (100 mg) by oral route once daily Rx: fluticasone propionate 50 mcg/actuation nasal spray,suspension Ref: 0 Instructions: spray 1 - 2 sprays (50 - 100 mcg) in each nostril by intranasal routeonce daily as needed Rx: hydroCHLOROthiazide 25 mg tablet Ref: 0 Instructions: take 1 tablet (25 mg) by oral route once daily Rx: HYDROcodone 7.5 mg-acetaminophen 325 mg tablet Ref: 0 Instructions: take 1 tablet by oral route every 6 hours as needed for pain Rx: meloxicam 15 mg tablet Ref: 0 Instructions: take 1 tablet (15 mg) by oral route once daily Rx: NexIUM 20 mg capsule,delayed release Ref: 0 Instructions: take 1 capsule (20 mg) by oral route once daily at least 1 hour before a meal swallowing whole. Do not crush or chew granules. Rx: pregabalin 150 mg capsule Ref: 0 Instructions: take 1 capsule (150 mg) by oral route 2 times per day Rx: Trulicity 0.75 mg/0.5 mL subcutaneous pen injector Ref: 0 Instructions: inject 0.75 mg by subcutaneous route once weekly P1 PHYSICAL EXAMINATION: General: Awake, alert, appropriate for age, in no acute distress. HEENT: No unusual neck masses around region of lateral neck triangle, thyroid, supraclavicular groove Heart: Regular rate and rhythm, normal S1, S2 and no murmur/gallop. Lungs: Clear to auscultation bilaterally with no use of accessory muscles. Extremities: Skin warm and dry without acute lesions, coloration, temperature, skin intact, no tenderness or erythema Integument: Hairy patches: ABSENT Dorsal skin dimples: ABSENT Cafe au lait spots: ABSENT Surgical incisions: well healed lumbar incision Palpation: Please see Pain drawing on Intake sheet for further detail. Midline spinal tenderness: No E6 Cervical Tenderness: No E6 Paralumbar tenderness: No E6 Parathoracic tenderness: No E6 Buttocks tenderness: No E6 Sacroilliac Tenderness: yes Laterality: Right POSTURAL and MUSCULO-SKELETAL EVALUATION: Coronal Balance: NEUTRAL Recumbent testing: Patient is able to lay flat on back Sagittal Balance: NEUTRAL Shoulder Profile: LEVEL Pelvic Girdle: LEVEL Neck ROM: UNRESTRICTED Lumbar ROM: RESTRICTED Shoulder ROM: Symmetrical Hip ROM: Symmetrical Knee ROM: Symmetrical Hands: Normal appearance, symmetrical Feet: Normal appearance, Symmetrical VASCULAR STATUS : LEFT RIGHT Wrist Pulses INTACT INTACT Pedal Pulses (Dors. pedis & post.tibialis) INTACT INTACT Color NORMAL NORMAL Edema Absent Absent NEUROLOGIC EXAMINATION: Mental Status:Awake and alert, fully oriented, with normal attention, concentration and memory, and fluent, appropriate speech. Cranial Nerves: I: Olfactory not tested. II: Visual acuity normal, no visual field deficit noted with confrontation. III,IV: Normal pupillary reflexes & intact extraocular movements without nystagmus. V,: Intact symmetrical facial sensation. VII: Intact symmetrical facial motor movement VIII: Hearing intact. IX,X: Intact gag, swallow, & normal voice. XI: Sternocleidomastoid, trapezius function intact. XII: Tongue midline with normal movements. L'hermitte's Sign: Negative / absent Spurling'Sign: Absent bilaterally. Cubital percussion test: Absent bilaterally. Diane-Tinel sign - Carpal region: Absent bilaterally. Straight Leg Raising: Absent bilaterally. Crossed straight leg raise: negative O8 MOTOR EXAM (0-5/5, N/T Muscle appearance: Symmetrical, without signs of atrophy or dystrophy UPPER EXTREMITY RIGHT LEFT Shoulder Abduction 5/5 5/5 Biceps 5/5 5/5 Triceps 5/5 5/5 Wrist Extension 5/5 5/5 Hand Intrnsics 5/5 5/5 Personnel Counselor 5/5 5/5 Hand and finger dexterity intact bilaterally? yes Disdiadochokinesis examination negative bilaterally? yes LOWER EXTREMITY RIGHT LEFT Hip Flexion 5/5 5/5 Knee Extension 5/5 5/5 Knee Flexion 5/5 5/5 Dorsiflexion 5/5 5/5 Plantarflexion 5/ 5/5 EHL 5/5 5/5 FHL 5/5 5/5 Toe heel walk / heel-toe walk intact while maintaining satisfactory balance? yes Squatting/straightening w/o assistance to a min of 60 degree knee flexion? No Single leg stance: intact Trendelenburg sign negative bilaterally REFLEXES(0-4/2, NT)Upper Extremity Lower Extremity Right 2 2 Left 2 2 Pathological Reflexes RIGHT LEFT Diane's Absent Absent Clonus Absent Absent Babinski Absent Absent Sensory system (0-4, N/T) Test type RU JOSE RL LL Joint-Position 2 2 2 2 Vibration 2 2 2 2 Pain & LT sense 2 2 2 2 Dermatomal Deficit: None None None None Gait and Functional Evaluation: Ambulatory aids: Independent Romberg's test: Intact bilaterally Steady Gait RADIOGRAPHIC STUDIES: XRay Lumbar Multiview (AP, Lateral, Flexion, Extension) with AP pelvis; 5 views taken at [facility] on 08/26/22: Mild spondylitic and degenerative changes with preserved alignment. Hardware noted from previous fusion L5-S1, is intact with no migration. Multilevel diminished disc height. No acute osseous abnormalities. CT [facility] of Lumbar Spine: IMPRESSION: 1. No evidence of fracture of the lumbar spine. 2. Disc degeneration changes resulting in moderate spinal canal stenosis at L2- L3 and left subarticular disc protrusion at T12-L1 which mildly narrows the left foramen. Findings are similar to prior 11/13/2020. IMPRESSION: It was my pleasure to have seen and examined Mohini. I reviewed the patient's clinical syndrome, physical findings, and imaging studies during the appointment today. It is my impression that the patient has a diagnosis of. 1. h/o L5-S1 decompression and fusion 2.Lumbar spondylosis 3. Right lower extremity radiculopathy 4. Right sacroiliitis I outlined the natural course history without intervention and various interventional options. PLAN: Based on my findings I suggest the following course of action: -Scheduled Right SI injection to be performed by Dr. Hendrickson in the OR - Home Exercise: The patient was given a packet, councelled and directed to participate in a home exercise program for thier current condition. This should also consist of 30 min twice daily of either walking or stationary bike/recumbant biking for cardiovascular health and/or low weight, high repetition resistive exercises along with the prescribed "spine rehab" packet given. They should limit their lifting bending and twisting and use good body mechanics when doing such movement in attempts to mitigate any further aggravation to their symptoms. If any of these exercises causes increased pain or discomfort they are instructed to modify the exercise so that it does not create pain, or to stop the particular exercise that causes them discomfort and consult with their PT about alternatives. -Health Maintenance: Health maintenance handout given to the patient which covers topics such as nutritional support, supplementation for symptomatic relief as well as for bone health with vitamin D and calcium, smoking cessation, weight loss counselling and importance of daily exercise with examples and references for each. - Supplements program given and patient expressed understanding. -Ambulate daily -Take medications as directed -Ice and rest for pain and swelling control. Follow-up: 2 months Patient Education: (Informational booklet, instructions, etc) given at today's appointment: Yes .ED:Patient Education: Y Plan at next visit: Review patient progress Medications Reviewed: YES In our visit today Ms. Hayden and I have had a chance to go over my understanding of the patient's current condition, the natural course history without intervention and various interventional options. Questions were invited and answered, and the patient wishes to proceed as outlined above. I will be sure to keep you updated afterMs. Hayden returns here for further follow-up. Thank you again for your referral. Please do not hesitate to contact me if you have any further questions. Signed and authenticated by: Desi Santos MSN, [employer] [facility] [address], [address] [place] [address] This message is confidential, intended only for the named recipient(s) and may contain information that is privileged or exempt from disclosure under applicable law. If you are not the intended recipient(s), you are notified that the dissemination, distribution or copying of this information is strictly prohibited. If you received this message in error, please notify the sender then delete this message. CC: Chris Mann M.D. 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 History of Any Multi-Drug Resistant Organisms: None Reported Past Surgical History: Back Surgery, Cholecystectomy, Hernia Repair, Hysterectomy Additional Past Surgical History / Comment(s): LOWER BACK FUSION, EGD, COLONOSCOPY. STEROID SHOT 2009?, HIATAL HERNIA REPAIR, PAIN CLINIC PROCEDURES Past Anesthesia/Blood Transfusion Reactions: No Reported Reaction Additional Past Anesthesia/Blood Transfusion Reaction / Comment(s): Pt has never received blood. Smoking Status: Former smoker - Past Family History Mother Family Medical History: Musculoskeletal Disorder, Neurologic Disorder Additional Family Medical History / Comment(s): PARKINSONS Father Family Medical History: Hypertension Medications and Allergies Home Medications Medication Instructions Recorded Confirmed Type Aspirin EC [Ecotrin] 81 mg PO QAM 03/26/14 09/10/22 History Citalopram Hydrobromide 40 mg PO QAM 03/26/14 09/14/22 History [Citalopram HBr] HYDROcodone/APAP 7.5-325MG [Garnett 1 tab PO Q6H PRN 12/03/14 09/14/22 History 7.5-325] Pregabalin [Lyrica] 150 mg PO BID 12/03/14 09/14/22 History Esomeprazole Magnesium [NexIUM] 20 mg PO BID 01/17/15 09/14/22 History Meloxicam 15 mg PO QAM 04/13/17 09/14/22 History Atorvastatin [Lipitor] 10 mg PO QAM 05/22/22 09/14/22 History Cholecalciferol (Vitamin D3) 375 mcg PO QAM 05/22/22 09/14/22 History [Vitamin D3 (125 MCG = 5,000 IU)] Losartan Potassium 100 mg PO QAM 05/22/22 09/14/22 History hydroCHLOROthiazide 25 mg PO QAM 05/22/22 09/14/22 History Dulaglutide [Trulicity] 3 mg SQ MADDOX 09/10/22 09/14/22 History Allergies Allergy/AdvReac Type Severity Reaction Status Date / Time No Known Allergies Allergy Verified 09/10/22 11:38 Physical Examination Osteopathic Statement: *. No significant issues noted on an osteopathic structural exam other than those noted in the History and Physical/Consult.
[2022-09-14 07:03] LABS: Glucose,Whole Blood 103 mg/dL (70-110)
[2022-09-14] MEDS ORDERED: LACTATED RINGERS 1,000 ML IV ONE (07:04)
[2022-09-14] MEDS ORDERED: MIDAZOLAM 2 MG/2 ML VIAL ONE (07:25)
[2022-09-14] MEDS ORDERED: fentaNYL (PF) 50 MCG/ML 2 ML AMP ONE (07:25)
[2022-09-14] MEDS ORDERED: PROPOFOL 10 MG/ML 20 ML VIAL IV ONE (07:25)
[2022-09-14] MEDS ORDERED: TRIAMCINOLONE ACETONIDE 40 MG/ML 1 ML VIAL INTRAARTIC STA (07:25)
[2022-09-14] MEDS ORDERED: LIDOCAINE 2%-EPI 1:100,000 20 ML VIAL INTRAARTIC ONE (07:41)
[2022-09-14] MEDS ORDERED: BUPIVACAINE (PF) 0.25% 30 ML VIAL INTRAARTIC ONE ×2 (07:41)
[2022-09-14] MEDS ORDERED: HYDROcodone/APAP 5-325MG 1 EACH TAB PO PRN (07:59)
[2022-09-14] MEDS ORDERED: CYCLOBENZAPRINE 5 MG TAB PO PRN (07:59)
[2022-09-14] MEDS ORDERED: HYDROcodone/APAP 10-325MG 1 EACH TAB PO PRN (07:59)
[2022-09-14] MEDS ORDERED: MAGNESIUM HYDROXIDE 2,400 MG/10 ML CUP PO PRN (07:59)
[2022-09-14] MEDS ORDERED: HYDROmorphone 0.5 MG/0.5 ML SYRINGE IVP PRN (07:59)
[2022-09-14] MEDS ORDERED: HYDROmorphone 1 MG/ML 1 ML SYRINGE IVP PRN (07:59)
[2022-09-14] MEDS ORDERED: SENNOSIDES-DOCUSATE SODIUM 1 EACH TAB PO PRN (07:59)
[2022-09-14 08:30] VITALS: BP 98/65; PULSE 85; RESP 17
--- NOTE | 2022-09-14 09:15 | FL ---
EXAMINATION TYPE: FL guidance operating room, XR lumbar spine 2 or 3V DATE OF EXAM: 09/14/2022 CLINICAL HISTORY: Low back and right sacroiliac joint pain. TECHNIQUE: Fluoroscopy. Intraoperative 2 views lumbar spine. COMPARISON: Outside lumbar spine x-ray August 26, 2022. FINDINGS: Fluoroscopic guidance was provided during right sacroiliac joint injection procedure perfo rmed by Dr. Hendrickson. A total of 20 seconds of fluoroscopic time was utilized during the procedure and two spot images was acquired. Total dose area product (DAP) in uGy*m?, mGy*cm? (or similar: 3.6 378. Intraoperative images show needle localization of level of the right sacroiliac joint with contrast i njection. Surgical change to the lumbosacral junction is redemonstrated. IMPRESSION: As Above.
[2022-09-14] MEDS ORDERED: ACETAMINOPHEN TAB 325 MG TAB PO SCH (12:00)
--- NOTE | 2022-09-14 17:19 | P.OP ---
Date of Procedure: 09/14/22 Preoperative Diagnosis: 1. Right degenerative sacroiliitis 2. LBP Postoperative Diagnosis: 1. Right degenerative sacroiliitis 2. LBP Procedure(s) Performed: 1. Flouroscopic localization of right SI joint 2. Right SI joint injection Implants: NOne Anesthesia: MAC, local Surgeon: Valdemar Hendrickson Estimated Blood Loss (ml): 2 IV fluids (ml): 200 Urine output (ml): 0 Pathology: none sent Condition: stable Disposition: PACU Indications for Procedure: Spine Surgery Clinical and Risk Review Mohini Hayden is a 62 yo female presenting for evaluation of Right SIJ pain. It was my pleasure to have seen and examined Mohini Hayden. In our visit today we have had a chance to go over subjective complaints, physical examination findings and treatments including the natural course history without intervention and various interventional options. The patients imaging demonstrates Previous L5-S1 fusion. 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 On physical exam, Mohini Hayden demonstrates +Alessio's, TTP RSIJ, +compression test R, +Distraction test R, + FABER4 R, +Hip thrust R. I have explained to the patient that as their condition progresses it will cause further neurological deficits and eventual paralysis. Based on the patients imaging, physical exam, and the rapid progression and disabling nature of their symptoms, at this time I recommend surgery in the form or a: Right SIJ injection under flouroscopic guidance. I discussed the risk and benefits of this procedure at length with Mohini Hayden. The patient agreed to considered pursuing the procedure abovementioned. Prior to surgery, she should follow up with her PCP (Cardio, ID, IM etc) for clearance. Questions were invited and answered, and the patient wishes to proceed as outlined below. Currently, I am recommendin. Right sacroilliac injection under flouroscopic guidance 2. Follow up with PCP for surgical clearance 3. Review of surgical risks and benefits as well as an educational packet on the proposed surgical procedure. Risks: All surgical procedures come with inherent risks, including those related to positioning, anesthesia, intraoperative findings, and postoperative complications. It is important to understand that surgery does not come with any guarantee of a successful outcome as complications and adverse events are always possible. The patient was given a handout in office today discussing the surgical procedure and risks associated with the intervention, both of which were discussed with the patient. These risks include but are not limited to the following: * Experiencing same, different or even worse symptoms in back, neck, arms, or legs compared to before surgery. * Requiring further surgery or other forms of treatment presently or at some time in the future at same or other levels of the intended spine surgery. * On an extreme but fortunately relatively rare basis severe complication such as blindness, stroke, heart attack, temporary and/or permanent nerve injury, paralysis, coma, or may occur, sometimes without known explanation. * Surgical complications may include but are not limited to risk of infection, fluid accumulation in the surgical dissection site, including a seroma or hematoma, that requires additional surgery, wound drainage, bleeding, new numbness or weakness, vision changes/loss, spinal fluid leakage, non-healing and/or infected incision, headaches, difficulty or inability to swallow, hoarseness, hemopneumothorax, pneumothorax, impotence, retrograde ejaculation, vaginal dryness; injury to nerves, spinal cord, blood vessels, lymphatics or other vital organs (i.e., bowel injury, injury to the great vessels); heterotopic bone formation; complications related to the hardware such as screws, rods, cages including misplaced hardware, device failure, instrumentation at the wrong spine level, hardware fracture/breakage, or hardware loosening; vertebral failure of the spinal column above or below the newly placed hardware; retained surgical instrumentations or devices and the need for further surgery. * Medical risks of the planned spine surgery include but are not limited to generalized Infections to the whole body or local areas outside of the surgical site (sepsis), heart attack, bleeding, anaphylaxis, meningitis, seizure, epilepsy, hearing loss, burn lanier, laceration of the head or other areas of the body, bruising, hypersensitivity of the skin, bladder over distension; allergic reaction; shoulder injury related to positioning; fat, blood and air clots to other areas of the body like heart, lungs, brain; failure of internal organs such as lungs, kidneys, liver and excessive bleeding. If blood transfusions are necessary, note that transfusions may cause intolerance reactions such as anaphylaxis or other complex reactions. * Despite best efforts, the results of spine surgery might not heal in terms of bone, soft tissues such as skin, fascia, ligaments, and joints. Additionally, in order to achieve best possible results, spine surgery may be carried out beyond the initially planned levels and involve decompression, fusion including insertion of hardware at levels other than the original intended area of surgical interest change some portions of the procedure in order to ensure the best possible outcomes. * With spine surgery and spinal fusion, there are different off label uses of instrumentation (devices, implants and hardware) as well as biological substances (bone morphogenic proteins, demineralized bone matrix) as well as using extra bone from allograft sources (i.e. cadaver bone) or autograft (iliac crest bone, ribs, or the spine itself). The patient has been given information about these practices and their inherent risks and benefits. The patient has had a chance to review all the listed information, has been given print outs detailing this information, and has had all his/her questions answered to their satisfaction. It was my pleasure to have seen and examined Mohini Hayden.. In our visit today we have had a chance to go over my understanding of our patient's current condition, the natural course history without intervention and various interventional options. Questions were invited and answered, and the patient wishes to proceed as outlined above. I have seen and examined the patient for 25 minutes and we have spent more than 50% of the time in repeat and detailed counseling about the patient's condition, its natural course history with out a nd as much as can be predicted with surgery and re-review of various surgical treatment options. In conclusion, Mohini Hayden and requested we proceed with the above suggested surgery and are willing to accept risks and limitations of the suggested surgery as nature of the disease process and our best attempts at treatment for the condition. Thank you again for allowing us to be part of your patient's care. Please don't hesitate to contact me if you have any further questions. Signed and authenticated by: Valdemar Christie [facility] [address] [facility], [address] [address] Description of Procedure: The patient was seen and examined in the preoperative area. All preoperative protocols were followed. Informed consent was obtained risks and benefits of the procedure were discussed at length. Risks including bleeding infection damage to the surrounding tissue and risk of reoperation were discussed with the patient. Risk of anesthesia up to and including was a discussed with the patient. These are outlined in the risk review. They were willing to accept these risks and all of the risks of surgery. The patient was given a weight- based dose of antibiotics in the form of no antibiotic. The patient was seen and evaluated by the anesthesia team who deemed them fit for surgery. The site was marked, the patient was willing to proceed with the procedure. The patient was transferred to the operative suite by the Department of anesthesia. They were then drifted off to sleep by the department anesthesia and Sedation with local was performed. The patient tolerated this well. . Once confirmation of lines and ventilation the patient was transferred to a [prone Jacky table very carefully]. All bony prominences including wrists, elbows, axilla, chest, hips, and thighs, and feet were padded very well. Special attention was paid to the genitalia and these were padded accordingly. SCDs were placed on bilateral lower extremities and were connected. Arms were well padded and placed [on arm boards up and out in the 90/90 position]. Once in position, again we confirmed good ventilation capabilities and that lines were running appropriately. The patient'slumbopelvic spine was then exposed. 1010s were placed outlining the incision site. Standard alcohol was used to clean the incision site and allowed to dry. C-arm was used to biomark the patient and confirm level for incision which was marked with a skin marker. Operative briefing was performed with all teams and everyone in agreement to proceed. The patient was then prepped and draped in a normal sterile fashion. Timeout was then performed and all parties were in agreement with the procedure to be performed. fluoroscopic and was then used to localize with a 18-gauge spinal needle the right SI joint. Skin was anesthetized with 2% lidocaine. It radiates around and was advanced into the right SI joint under fluoroscopic guidance. Isovue was used to isolate the joint and there was good visualization of the joint. Joint was then injected with half percent Marcaine 10 mL with 1 mL of 40 mg/mL Kenalog. The needle was withdrawn the area was cleaned and a Band-Aid was placed. The patient was transferred back to their hospital bed atraumatically. Patient was then awakened and extubated by the department of anesthesia having tolerated the procedure very well with no complications. They were transferred to the postoperative care unit in stable condition.
== END 2022-09-14 08:47 | disposition home or self-care (01) ==
LOC: OR 06:14
PROVIDERS: ATTEND Orthopaedic Surgery
DX: M46.1 Sacroiliitis, not elsewhere classified (principal); M47.816 Spondylosis without myelopathy or radiculopathy, lumbar region; K21.9 Gastro-esophageal reflux disease without esophagitis; E78.5 Hyperlipidemia, unspecified; I10 Essential (primary) hypertension; Z90.49 Acquired absence of other specified parts of digestive tract; Z90.710 Acquired absence of both cervix and uterus; Z87.891 Personal history of nicotine dependence; Z98.890 Other specified postprocedural states; Z82.49 Family history of ischemic heart disease and other diseases of the circulatory system; Z98.1 Arthrodesis status; Z79.82 Long term (current) use of aspirin; Z79.1 Long term (current) use of non-steroidal anti-inflammatories (NSAID); Z79.899 Other long term (current) drug therapy
CPT/HCPCS: 72100; G0260; J2250; J3301; J3010; J2704

== ENCOUNTER → 2022-12-14 | Outpatient (CLI) | payer OTHER ==
[2022-12-14 15:08] LABS: Chloride 106 mmol/L (98-107); Glucose 103 mg/dL (74-99); Potassium 3.6 mmol/L (3.5-5.1); Sodium 139 mmol/L (137-145)
[2022-12-14 15:09] LABS: ALT 23 U/L (4-34); AST 23 U/L (14-36); African American GFR (CKD) 74 (>60 ml/min/1.73 sqM); Albumin 4.1 g/dL (3.5-5.0); Albumin/Globulin Ratio 1.4; Alkaline Phosphatase 64 U/L (38-126); Anion Gap 6 mmol/L; Blood Urea Nitrogen 23 mg/dL (7-17); Calcium 9.5 mg/dL (8.4-10.2); Carbon Dioxide 27 mmol/L (22-30); Globulin 2.9 g/dL; Non-African American GFR(CKD) 64 (>60 ml/min/1.73 sqM); Total Bilirubin 0.5 mg/dL (0.2-1.3)
[2022-12-14 15:17] LABS: NT-Pro-B-Type Natriuretic Pept 39 pg/mL
[2022-12-14 20:41] LABS: INR 0.93 sec (0.93-1.11); Prothrombin Time 10.5 sec (9.9-11.9)
[2022-12-14 21:40] LABS: Basophils # (A) 0.02 X 10*3/uL (0.00-0.10); Basophils % (A) 0.3 %; Eosinophils # (A) 0.09 X 10*3/uL (0.04-0.35); Eosinophils % (A) 1.3 %; HCT 39.8 % (37.2-46.3); HGB 13.5 d/dL (12.0-15.0); Lymphocytes # (A) 1.28 X 10*3/uL (0.90-5.00); MCH 32.3 pg (27.0-32.0); MCHC 33.9 d/dL (32.0-37.0); MCV 95.2 FL (80.0-97.0); Mean Platelet Volume 11.7 FL (9.5-12.2); Monocytes # (A) 0.46 X 10*3/uL (0.20-1.00); Monocytes % (A) 6.5 %; NRBC Per 100 WBC 0 X 10*3/uL (0.00-0.01); Neutrophils # (A) 5.23 X 10*3/uL (1.80-7.70); Neutrophils % (A) 73.6 %; Platelet Count 173 X 10*3/uL (140-440); RBC 4.18 X 10*6/uL (4.10-5.20)
== END | disposition home or self-care (01) ==
LOC: LABPAT 14:11
PROVIDERS: ATTEND Orthopaedic Surgery
DX: Z01.812 Encounter for preprocedural laboratory examination (principal); Z22.322 Carrier or suspected carrier of Methicillin resistant Staphylococcus aureus; M19.90 Unspecified osteoarthritis, unspecified site
CPT/HCPCS: 80053; 83880; 85025; 85610; 87070

== ENCOUNTER 2023-05-03 10:52 | Emergency (ER) | payer MEDICARE ==
[2023-05-03] MEDS ORDERED: MORPHINE SULFATE 4 MG/ML SYRINGE IM STA (11:29)
--- NOTE | 2023-05-03 11:35 | ED ---
Back Pain HPI - General Chief Complaint: Back Pain/Injury Stated Complaint: right hip pain Source: patient Limitations: no limitations - History of Present Illness Initial Comments: A 63-year-old female presenting to the ED with a chief complaint of back pain. Patient notes history of chronic back pain and follows with Dr. Hendrickson. Is scheduled to have an MRI performed this Wednesday on 05/05/23. She reports over the past 4 days has had some worsening of her lower back pain which radiates to her left leg. Pain is similar to pain she is experiencing past. Denies any new injury or trauma. Patient is ambulatory with a walker at home. Reports she is still able to get around the house. No incontinence or saddle anesthesia. Denies fever or chills. Respiratory no shortness of breath. No other complaints. - Related Data Home Medications Medication Instructions Recorded Confirmed Aspirin EC [Ecotrin] 81 mg PO QAM 03/26/14 09/10/22 Citalopram Hydrobromide 40 mg PO QAM 03/26/14 09/14/22 [Citalopram HBr] HYDROcodone/APAP 7.5-325MG [[place] 1 tab PO Q6H PRN 12/03/14 09/14/22 7.5-325] Pregabalin [Lyrica] 150 mg PO BID 12/03/14 09/14/22 Esomeprazole Magnesium [NexIUM] 20 mg PO BID 01/17/15 09/14/22 Meloxicam 15 mg PO QAM 04/13/17 09/14/22 Atorvastatin [Lipitor] 10 mg PO QAM 05/22/22 09/14/22 Cholecalciferol (Vitamin D3) 375 mcg PO QAM 05/22/22 09/14/22 [Vitamin D3 (125 MCG = 5,000 IU)] Losartan Potassium 100 mg PO QAM 05/22/22 09/14/22 hydroCHLOROthiazide 25 mg PO QAM 05/22/22 09/14/22 Dulaglutide [Trulicity] 3 mg SQ MADDOX 09/10/22 09/14/22 Allergies Allergy/AdvReac Type Severity Reaction Status Date / Time No Known Allergies Allergy Verified 05/03/23 11:15 Review of Systems ROS Statement: Those systems with pertinent positive or pertinent negative responses have been documented in the HPI. ROS Other: All systems not noted in ROS Statement are negative. 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 History of Any Multi-Drug Resistant Organisms: None Reported Past Surgical History: Back Surgery, Cholecystectomy, Hernia Repair, Hysterectomy Additional Past Surgical History / Comment(s): LOWER BACK FUSION, EGD, COLONOSCOPY. STEROID SHOT 2009?, HIATAL HERNIA REPAIR, PAIN CLINIC PROCEDURES Past Anesthesia/Blood Transfusion Reactions: No Reported Reaction Additional Past Anesthesia/Blood Transfusion Reaction / Comment(s): Pt has never received blood. Past Psychological History: Anxiety, Depression Smoking Status: Former smoker Past Alcohol Use History: Rare Past Drug Use History: Marijuana - Past Family History Mother Family Medical History: Musculoskeletal Disorder, Neurologic Disorder Additional Family Medical History / Comment(s): PARKINSONS Father Family Medical History: Hypertension General Exam Limitations: no limitations General appearance: alert, in no apparent distress Neck exam: Present: normal inspection Respiratory exam: Present: normal lung sounds bilaterally Cardiovascular Exam: Present: regular rate, normal rhythm GI/Abdominal exam: Present: soft Extremities exam: Present: other (Strength and sensation equal and intact of bilateral lower extremities. DP/PT pulses 2+.) Neurological exam: Present: alert, oriented X3 Skin exam: Present: warm, dry Course Vital Signs 05/03/23 11:08 Temperature 98.4 F Pulse Rate 73 Respiratory 16 Rate Blood Pressure 126/77 O2 Sat by Pulse 92 L Oximetry Medical Decision Making - Medical Decision Making Was pt. sent in by a medical professional or institution (, PA, [facility], urgent care, hospital, or fci...) When possible be specific @ -No Did you speak to anyone other than the patient for history (EMS, parent, family, police, friend...)? What history was obtained from this source @ -No Did you review nursing and triage notes (agree or disagree)? Why? @ -I reviewed and agree with nursing and triage notes Were old charts reviewed (outside hosp., previous admission, EMS record, old EKG, old radiological studies, urgent care reports/EKG's, fci records)? Report findings @ -No old charts were reviewed Differential Diagnosis (chest pain, altered mental status, abdominal pain women, abdominal pain men, vaginal bleeding, weakness, fever, dyspnea, syncope, headache, dizziness, GI bleed, back pain, seizure, CVA, palpatations, mental health, musculoskeletal)? @ -Differential Musculoskeletal Muscular strain, contusion, ligament sprain, fracture, arthritis, septic arthritis, bursitis, cellulitis, muscle spasm, nerve compression, DVT, arterial occlusion, herpes zoster, electrolyte abnormality, tumor.... This is not meant to be in all inclusive list EKG interpreted by me (3pts min.). @ -None X-rays interpreted by me (1pt min.). @ -None done CT interpreted by me (1pt min.). @ -None done U/S interpreted by me (1pt. min.). @ -None done What testing was considered but not performed or refused? (CT, X-rays, U/S, labs)? Why? @ -Imaging was considered however at this time patient reports pain is consistent with history of chronic pain and reports no new injuries or trauma. What meds were considered but not given or refused? Why? @ -None Did you discuss the management of the patient with other professionals (professionals i.e. , PA, [facility], lab, RT, psych nurse, social problems specialist, industrial psychology teacher, teacher, legal compliance officer, geriatric case manager)? Give summary @ -No Was smoking cessation discussed for >3mins.? @ -No Was critical care preformed (if so, how long)? @ -No Were there social determinants of health that impacted care today? How? (Homelessness, low income, unemployed, alcoholism, drug addiction, transportation, low edu. Level, literacy, decrease access to med. care, long term, rehab)? @ -No Was there de-escalation of care discussed even if they declined (Discuss DNR or withdrawal of care, Hospice)? DNR status @ -No What co-morbidities impacted this encounter? (DM, HTN, Smoking, COPD, CAD, Cancer, CVA, ARF, Chemo, Hep., AIDS, mental health diagnosis, sleep apnea, morbid obesity)? @ -None Was patient admitted / discharged? Hospital course, mention meds given and route, prescriptions, significant lab abnormalities, going to OR and other pertinent info. @ -Discharge 63-year-old female presented to the ED with complaints of low back pain radiating down her left leg. No injury or trauma. No saddle anesthesia or incontinence. No weakness. No fever or chills. Exam showed full strength and sensation in bilateral lower extremities with DP/PT pulses intact. Patient received morphine with improvement of pain. At this time, vital signs stable afebrile. Discharged home and advised to follow up with orthopedics as scheduled. Discussed return precautions with patient who verbalizes agreement. Undiagnosed new problem with uncertain prognosis? @ -No Drug Therapy requiring intensive monitoring for toxicity (Heparin, Nitro, Insulin, Cardizem)? @ -No Were any procedures done? @ -No Diagnosis/symptom? @ -Back pain Acute, or Chronic, or Acute on Chronic? @ -Acute on chronic Uncomplicated (without systemic symptoms) or Complicated (systemic symptoms)? @ -Uncomplicated Side effects of treatment? @ -No Exacerbation, Progression, or Severe Exacerbation? @ -No Poses a threat to life or bodily function? How? (Chest pain, [place], NH, pneumonia, PE, COPD, DKA, ARF, appy, cholecystitis, CVA, Diverticulitis, Homicidal, Suicidal, threat to staff... and all critical care pts) @ -No Disposition Clinical Impression: Back pain Disposition: HOME SELF-CARE Condition: Good Instructions (If sedation given, give patient instructions): Acute Low Back Pain (ED) Additional Instructions: Please return to the Emergency Department if symptoms worsen or any other concerns. Please follow up with your orthopedist. Is patient prescribed a controlled substance at d/c from ED?: No Referrals: Chris Mann MD [Primary Care Provider] - 1-2 days Time of Disposition: 13:31
[2023-05-03 11:53] VITALS: TEMP 98.4
[2023-05-03 14:01] VITALS: BP 130/82; PULSE 80; RESP 18
== END 2023-05-03 13:52 | disposition home or self-care (01) ==
LOC: EC 10:52
DX: M54.50 Low back pain, unspecified (principal); K21.9 Gastro-esophageal reflux disease without esophagitis; E78.5 Hyperlipidemia, unspecified; I10 Essential (primary) hypertension; M19.90 Unspecified osteoarthritis, unspecified site; F41.9 Anxiety disorder, unspecified; F32.A Depression, unspecified; Z87.891 Personal history of nicotine dependence; F12.90 Cannabis use, unspecified, uncomplicated; Z79.82 Long term (current) use of aspirin; Z79.899 Other long term (current) drug therapy
CPT/HCPCS: 93005; 99284; 96372; J2270

== ENCOUNTER → 2023-05-05 | Outpatient (CLI) | payer MEDICARE ==
--- NOTE | 2023-05-07 11:04 | MR ---
EXAMINATION TYPE: MR lumbar spine wo/w con DATE OF EXAM: 05/05/2023 COMPARISON: None HISTORY: Low back pain that radiates down left leg, history of surgery CONTRAST: 11 mL intravenous Gadavist. TECHNIQUE: Multiplanar, multisequence images of the lumbar spine were acquired. FINDINGS: Cord terminates at the L1 level. L5-S1: No significant disc bulge or disc herniation. No spinal canal stenosis. No foraminal stenosi s. Pedicle screws are present L5-S1. Some susceptibility artifact is present L4-L5: No significant disc bulge or disc herniation. No spinal canal stenosis. No foraminal stenosi s. L3-L4: There is a 0.6 x 0.9 cm left paracentral disc herniation is present extending posterior to L4. This is moderate anterior thecal sac compression. Foraminal stenosis and displacement of the nerve r oot is likely present. L2-L3: No significant disc bulge or disc herniation. No spinal canal stenosis. No foraminal stenosi s. . L1-L2: No significant disc bulge or disc herniation. No spinal canal stenosis. No foraminal stenosi s. T12-L1: There is broad-based left paracentral disc herniation with mild to moderate anterior thecal s ac compression. Some narrowing of the left foramen is present. No cord contact is evident. No spinal canal stenosis is present. No abnormal enhancement is evident. Postcontrast images demonstrate the sequestered disc posterior to L4 well. IMPRESSION: 1. L3-4 Disc herniation suspected sequestered disc posterior to L4 with moderate anterior thecal sac compression or nerve root displacement. 2. Disc bulge T12-L1 with mild to moderate anterior thecal sac impression foraminal narrowing. Correl ate with radicular symptoms.
== END | disposition home or self-care (01) ==
LOC: RADMRIMAIN 13:49
PROVIDERS: ATTEND Family Medicine
DX: M51.16 Intervertebral disc disorders with radiculopathy, lumbar region (principal); M99.73 Connective tissue and disc stenosis of intervertebral foramina of lumbar region
CPT/HCPCS: 72158; A9585

== ENCOUNTER 2023-08-31 07:30 | Inpatient (IN) | payer MEDICAID, MEDICARE ==
[2023-11-11 11:39] VITALS: BMI 43.9
--- NOTE | 2023-11-14 09:32 | P.HPOR ---
History of Present Illness H&P Date: 11/05/23 .D:Date: 11/05/23 : 10:50am .T:Title: [facility] HISTORY AND PHYSICAL Age: 63 year Height: 5'2" Weight: 250 lbs BMI: 45.73 kg/m2 Occupation: Self VAS: 8 Hand:Right IMPRESSION: It was my pleasure to have seen and examined Mohini.I reviewed the patient's clinical syndrome, physical findings, and imaging studies during the appointment today. It is my impression that the patient has a diagnosis of. 1. L2-3 and L3-4 HNP with spondylosis and stenosis, severe 2. 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 Bilateral lower extremity radiculopathy 4. Bilateral lower extremity weakness 5. s/p L5-S1 PLIBF I outlined the natural course history without intervention and various interventional options. PLAN: Based on my findings I suggest the following course of action: -I discussed treatment options with the patient, including operative and non- operative options, and they have elected to proceed with the following surgical procedure: Revision L2-Pelvis decompression and fusion The indications, risks, benefits, and alternatives to surgery were discussed with the patient and family at length. Specifically (but not limited to) the risks of infection, stiffness, recurrence of symptoms, need for revision surgery, local numbness, neurovascular injury, and blood clots were discussed. The patient's questions were answered. The decision to proceed was made. Consent will be obtained for the procedure. -I have ordered a CT scan of the lumbar spine for surgical planning and imaging integration -Take medications as directed. Spine Surgery Risk Review Ms. Hayden is presenting for evaluation of low back and bilateral lower extremity pain, bilateral lower extremity numbness, tingling, and weakness. It was my pleasure to have seen and examined Ms. Hayden. In our visit today we have had a chance to go over subjective complaints, physical examination findings and treatments including the natural course history without intervention and various interventional options. The patients imaging demonstrates: XRay Lumbar Multiview (AP, Lateral, Flexion, Extension) with AP pelvis; 5 views taken at [facility] on 05/26/23 of Lumbar Spine: Images reviewed and demonstrate severe spondylotic changes from L2-S1 with disc collapse, osteophytosis, facet arthrosis, endplate sclerosis and cyst formation as well as flattening of the normal LL due to these changes. LL is 19 deg. PI 48 deg. No fractures noted. Foraminal stenosis due to facet overgrowth noted. No lesions noted. Surgical changes at L5-S1 noted with reasonable hardware placement and PLIBF. [facility]ine: Images reviewed demonstrate severe spondylosis with severe stenosis L2-S1 with disc collapse, bulging, herniation, facet arthropathy, ligamental hypertrophy, lateral recess stenosis all contributing to overall severe lumbar central and b/l foraminal stenosis. There is flattened normal LL as described. No lesions noted. NO fractures noted. HNP noted at L2-3 and L3-4 causing critical stenosis at these levels. HX of L5-S1 PLIBF noted. CT [facility] of Lumbar Spine: - Re-reviewed today with the patient. IMPRESSION: 1. No evidence of fracture of the lumbar spine. 2. Disc degeneration changes resulting in moderate spinal canal stenosis at L2- L3 and left subarticular disc protrusion at T12-L1 which mildly narrows the left foramen. Findings are similar to prior 11/13/2020. On physical exam, Ms. Hayden demonstrates: A continued constant sharp pain throughout the low back that radiates down into the bilateral lower extremities with a shooting, throbbing quality. She states her lower extremity pain is associated with numbness and tingling. She notes progressive lower extremity weakness bilaterally. She states she presented to the ER about 2 weeks ago due to severe, debilitating low back pain and inability to ambulate for 4 days straight. She notes her symptoms have remained relatively constant since she was evaluated in the ER. She states her symptoms worsen after prolonged sitting, standing, and walking. She notes her symptoms are most severe in the morning. She reports experiencing severe sleep disturbances related to her ongoing pain and associated symptoms. I have explained to the patient that as their condition progresses it will cause further neurological deficits and eventual paralysis. Based on the patients imaging, physical exam, and the rapid progression and disabling nature of their symptoms, at this time I recommend surgery in the form of a: Revision L2-Pelvis decompression and fusion. I discussed the risk and benefits of this procedure at length with Ms. Hayden. The patient agreed to considered pursuing the procedure above mentioned. Prior to surgery, she should follow up with her PCP (Cardio, ID, IM etc) for clearance. Questions were invited and answered, and the patient wishes to proceed as outlined below. Currently, I am recommendin.Revision L2-Pelvis decompression and fusion 2.Review of surgical risks and benefits as well as an educational packet on the proposed surgical procedure. Risks: All surgical procedures come with inherent risks, including those related to positioning, anesthesia, intraoperative findings, and postoperative com plications. It is important to understand that surgery does not come with any guarantee of a successful outcome as complications and adverse events are always possible. The patient was given a handout in office today discussing the surgical procedure and risks associated with the intervention, both of which were discussed with the patient. These risks include but are not limited to the following: * Experiencing same, different or even worse symptoms in back, neck, arms, or legs compared to before surgery. Requiring further surgery or other forms of treatment presently or at some time in the future at same or other levels of the intended spine surgery. On an extreme but fortunately relatively rare basis severe complication such as blindness, stroke, heart attack, temporary and/or permanent nerve injury, paralysis, coma, or may occur, sometimes without known explanation. Surgical complications may include but are not limited to risk of infection, fluid accumulation in the surgical dissection site, including a seroma or hematoma, that requires additional surgery, wound drainage, bleeding, new numbness or weakness, vision changes/loss, spinal fluid leakage, non-healing and/or infected incision, headaches, difficulty or inability to swallow, hoarseness, hemopneumothorax, pneumothorax, impotence, retrograde ejaculation, vaginal dryness; injury to nerves, spinal cord, blood vessels, lymphatics or other vital organs (i.e., bowel injury, injury to the great vessels); heterotopic bone formation; complications related to the hardware such as screws, rods, cages including misplaced hardware, device failure, instrumentation at the wrong spine level, hardware fracture/breakage, or hardware loosening; vertebral failure of the spinal column above or below the newly placed hardware; retained surgical instrumentations or devices and the need for further surgery. * Medical risks of the planned spine surgery include but are not limited to generalized Infections to the whole body or local areas outside of the surgical site (sepsis), heart attack, bleeding, anaphylaxis, meningitis, seizure, epilepsy, hearing loss, burn lanier, laceration of the head or other areas of the body, bruising, hypersensitivity of the skin, bladder over distension; allergic reaction; shoulder injury related to positioning; fat, blood and air clots to other areas of the body like heart, lungs, brain; failure of internal organs such as lungs, kidneys, liver and excessive bleeding. If blood transfusions are necessary, note that transfusions may cause intolerance reactions such as anaphylaxis or other complex reactions. Despite best efforts, the results of spine surgery might not heal in terms of bone, soft tissues such as skin, fascia, ligaments, and joints. Additionally, in order to achieve best possible results, spine surgery may be carried out beyond the initially planned levels and involve decompression, fusion including insertion of hardware at levels other than the original intended area of surgical interest change some portions of the procedure in order to ensure the best possible outcomes. With spine surgery and spinal fusion, there are different off label uses of i nstrumentation (devices, implants and hardware) as well as biological substances (bone morphogenic proteins, demineralized bone matrix) as well as using extra bone from allograft sources (i.e. cadaver bone) or autograft (iliac crest bone, ribs, or the spine itself). The patient has been given information about these practices and their inherent risks and benefits. [facility] is an educational center that serves as a training facility for neurosurgical and orthopedic CELLAR WORKER and Nursing students. Physician assistants are medically trained surgical providers who function in the outpatient, inpatient, and operating room setting under the direct supervision of the attending surgeon. [facility] has multiple operating rooms with single and overlapping rooms running daily. They currently function under the required guidelines as produced by the [employer] with regards to the overlapping rooms and will continue to comply with changes to this policy as they occur. The requirements include and are complied with as follows: (1) the critical portions of the overlapping rooms will not occur at the same time, (2) the attending physician will be physically present during the critical portions of the procedure and immediately available during the entire case, and (3) a back-up attending is designated should the primary attending not be immediately available. The patient has had a chance to review all the listed information, has been given print outs detailing this information, and has had all his/her questions answered to their satisfaction. It was my pleasure to have seen and examined Ms. Sieracki. In our visit today we have had a chance to go over my understanding of our patient's current condition, the natural course history without intervention and various interventional options. Questions were invited and answered, and the patient wishes to proceed as outlined above. I have seen and examined the patient for 25 minutes and we have spent more than 50% of the time in repeat and detailed counseling about the patient's condition, its natural course history with out and as much as can be predicted with surgery and re-review of various surgical treatment options. In conclusion, Ms. Hayden requested we proceed with the above suggested surgery and are willing to accept risks and limitations of the suggested surgery as nature of the disease process and our best attempts at treatment for the condition. Thank you again for allowing us to be part of your patient's care. Please don't hesitate to contact me if you have any further questions. FOLLOW UP: Post Procedure PATIENT EDUCATION: Medications Reviewed: YES In our visit today Ms. Hayden and I have had a chance to go over my understanding of the patient's current condition, the natural course history without intervention and various interventional options. Questions were invited and answered, and the patient wishes to proceed as outlined above. I will be sure to keep you updated after Ms. Hayden returns here for further follow-up. Thank you again for your referral. Please do not hesitate to contact me if you have any further questions. Signed and authenticated by: Valdemar Calderon [facility] [address] [place] [id number] This message is confidential, intended only for the named recipient(s) and may contain information that is privileged or exempt from disclosure under applicable law. If you are not the intended recipient(s), you are notified that the dissemination, distribution or copying of this information is strictly prohibited. If you received this message in error, please notify the sender then delete this message. 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 STEROID SHOT 2010?, HIATAL HERNIA REPAIR, PAIN CLINIC PROCEDURES Past Anesthesia/Blood Transfusion Reactions: No Reported Reaction Additional Past Anesthesia/Blood Transfusion Reaction / Comment(s): Pt has never received blood. Smoking Status: Former smoker - Past Family History Mother Family Medical History: Musculoskeletal Disorder, Neurologic Disorder Additional Family Medical History / Comment(s): PARKINSONS Father Family Medical History: Hypertension Medications and Allergies Home Medications Medication Instructions Recorded Confirmed Type Aspirin EC [Ecotrin] 81 mg PO QAM 03/26/14 11/11/23 History HYDROcodone/APAP 7.5-325MG [Donnelly 1 tab PO Q6H PRN 12/03/14 11/11/23 History 7.5-325] Pregabalin [Lyrica] 150 mg PO BID 12/03/14 11/11/23 History Esomeprazole Magnesium [NexIUM] 20 mg PO BID 01/17/15 11/11/23 History Meloxicam 15 mg PO QAM 04/13/17 11/11/23 History Atorvastatin [Lipitor] 10 mg PO QAM 05/22/22 11/11/23 History Cholecalciferol (Vitamin D3) 375 mcg PO QAM 05/22/22 11/11/23 History [Vitamin D3 (125 MCG = 5,000 IU)] Losartan Potassium 100 mg PO QAM 05/22/22 11/11/23 History hydroCHLOROthiazide 25 mg PO QAM 05/22/22 11/11/23 History DULoxetine HCL [Cymbalta] 30 mg PO BID 11/11/23 11/11/23 History Docusate [Colace] 300 mg PO DAILY 11/11/23 11/11/23 History Fluticasone/Umeclidin/Vilanter 1 puff INHALATION DAILY PRN 11/11/23 11/11/23 History [Trelegy Ellipta 200-62.5-25] Allergies Allergy/AdvReac Type Severity Reaction Status Date / Time No Known Allergies Allergy Verified 11/11/23 11:17 Physical Examination Osteopathic Statement: *. No significant issues noted on an osteopathic structural exam other than those noted in the History and Physical/Consult. Assessment and Plan (1) Adjacent segment disease of lumbar spine with history of fusion procedure Status: Acute Code(s): M51.36 - OTHER INTERVERTEBRAL DISC DEGENERATION, LUMBAR REGION; Z98.1 - ARTHRODESIS STATUS SNOMED Code(s): 008874275 (2) Cyst of lumbar facet joint Status: Acute Code(s): M71.38 - OTHER BURSAL CYST, OTHER SITE SNOMED Code(s): 232556562 (3) Lumbar stenosis with neurogenic claudication Status: Acute Code(s): M48.062 - SPINAL STENOSIS, LUMBAR REGION WITH NEUROGENIC CLAUDICATION SNOMED Code(s): 31065019 (4) Lumbar spondylosis Status: Acute Code(s): M47.816 - SPONDYLOSIS W/O MYELOPATHY OR RADICULOPATHY, LUMBAR REGION SNOMED Code(s): 213627242 (5) Low back pain Status: Acute Code(s): M54.50 - LOW BACK PAIN, UNSPECIFIED SNOMED Code(s): 740816677 (6) Lumbar back pain with radiculopathy affecting lower extremity Status: Acute Code(s): M54.16 - RADICULOPATHY, LUMBAR REGION SNOMED Code(s): 483821186
[2023-11-15] MEDS ORDERED: ONDANSETRON 4 MG/2 ML VIAL IVP PRN (05:00)
[2023-11-15] MEDS ORDERED: TRANEXAMIC 1,000 MG/100ML-NACL 1,000 MG in SALINE 1 100ML.BAG IVPB PRN (05:00)
[2023-11-15] MEDS: IV FLUID CONTINUATION 1,000 ML IV ONE ×2 (06:10)
[2023-11-15] MEDS: DEXAMETHASONE SOD PHOSPHATE 4 MG/ML 1 ML VIAL IVP STA (06:47)
[2023-11-15] MEDS: ONDANSETRON 4 MG/2 ML VIAL IVP ONE (06:48)
[2023-11-15] MEDS: GABAPENTIN 300 MG CAP PO PRN (06:48)
[2023-11-15] MEDS: ACETAMINOPHEN TAB 500 MG TAB PO PRN (06:48)
[2023-11-15] MEDS: MIDAZOLAM 2 MG/2 ML VIAL IVP ONE (06:55)
[2023-11-15] MEDS: fentaNYL (PF) 50 MCG/ML 2 ML AMP IVP ONE (07:00)
[2023-11-15] MEDS ORDERED: ROCURONIUM 10 MG/ML (5 ML VIAL) IV ONE (07:23)
[2023-11-15] MEDS ORDERED: PHENYLEPHRINE 10 MG/ML VIAL ONE (07:23)
[2023-11-15] MEDS ORDERED: PROPOFOL 10 MG/ML 20 ML VIAL IV ONE (07:23)
[2023-11-15] MEDS ORDERED: LIDOCAINE 1% INJ 10MG/ML (20 ML MDV) ONE (07:23)
[2023-11-15] MEDS ORDERED: fentaNYL (PF) 50 MCG/ML 2 ML AMP ONE (07:23)
[2023-11-15] MEDS ORDERED: TRANEXAMIC 1,000 MG/100ML-NACL PREMIX BAG ONE (07:23)
[2023-11-15] MEDS ORDERED: SUCCINYLCHOLINE CHLORIDE 200 MG/10 ML VIAL IV ONE (07:23)
[2023-11-15] MEDS ORDERED: KETAMINE HCL IN 0.9 % NACL 50 MG/5 ML SYRINGE ONE (07:23)
[2023-11-15] MEDS ORDERED: MIDAZOLAM 2 MG/2 ML VIAL ONE (07:23)
[2023-11-15] MEDS ORDERED: HYDROmorphone (PF) 1 MG/ML ONE (07:23)
[2023-11-15] MEDS: THROMBIN (BOVINE) 5,000 UNIT VIAL TOPICAL ONE (08:13)
[2023-11-15] MEDS: GENTAMICIN 80 MG in SODIUM CHLORIDE 0.9% IRRIGATIO 3,000 ML IRRIGATION ONE (08:13)
[2023-11-15] MEDS: ceFAZolin 3,000 MG in SODIUM CHLORIDE 0.9% IRRIGATIO 3,000 ML IRRIGATION ONE (08:13)
--- NOTE | 2023-11-15 08:27 | P.ANPRN ---
Procedure Note - Anesthesia - Invasive Line Left Arterial Line Time Out Performed: Yes Date of Procedure: 11/15/23 Time of Procedure: 06:54 Location of Patient: PreOp Preparation: Sterile Prep, Sterile Dressing Arterial Line Location: Radial Ultrasound Used: Yes Purpose - Visualization and Identification of Vasculature: Yes Image Stored and Saved: Yes Narrative: Invasive line placement per sterile protocol utilized.[id number]
[2023-11-15] MEDS: LACTATED RINGERS 1,000 ML IV ONE ×2 (10:26→12:00)
[2023-11-15] MEDS: VANCOMYCIN 1,000 MG VIAL MISCELLANE ONE (12:31)
[2023-11-15] MEDS ORDERED: MAGNESIUM HYDROXIDE 2,400 MG/30 ML CUP PO PRN (13:20)
--- NOTE | 2023-11-15 13:25 | P.OP ---
Date of Procedure: 11/15/23 Preoperative Diagnosis: Current Active Problems Adjacent segment disease of lumbar spine with history of fusion procedure (Acute) Cyst of lumbar facet joint (Acute) Lumbar stenosis with neurogenic claudication (Acute) Lumbar spondylosis (Acute) Low back pain (Acute) Lumbar back pain with radiculopathy affecting lower extremity (Acute) Postoperative Diagnosis: Current Active Problems Adjacent segment disease of lumbar spine with history of fusion procedure (Acute) Cyst of lumbar facet joint (Acute) Lumbar stenosis with neurogenic claudication (Acute) Lumbar spondylosis (Acute) Low back pain (Acute) Lumbar back pain with radiculopathy affecting lower extremity (Acute) Procedure(s) Performed: -L2-3 POSTEROLATERAL AND INTERBODY FUSION -L3-4 POSTEROLATERAL AND INTERBODY FUSION -L4-5 POSTEROLATERAL AND INTERBODY FUSION -L5-S1 REVISION POSTEROLATERAL INSTRUMENTED FUSION -BILATERAL OPEN SIJ FUSION FOR LONG CONSTRUCT STABILITY AND RIGIDITY -L2-PELVIS SEGMENTAL INSTRUMENTATION -L2-3, L3-4, L4-5, L5-S1 BILATERAL LAMINECTOMY, COMPLETE FACETECTOMY AND FORAMINOTOMIES FOR NEURAL DECOMPRESSION AND CAGE PLACEMENT -ATTACHMENT OF THE CAUDAL END OF THE CONSTRUCT TO THE BONY PELVIS NOT SACRUM. -INSERTION OF BIOMECHANICAL DEVICES CAGES L2-3, L3-4, L4-5 -EXPLORATION OF FUSION L5-S1 WITH REMOVAL OF HARDWARE -USE OF [employer] NAVIGATION FOR SCREW PLACEMENT USE OF IONM ALL SCREWS TESTING > 14mA 29172, 80960, 72277, 74318, 00953(50), 29035, 63981, 35167, 26462, 29931, 34323, 23228, 02808, 66959, 58178, 32900 Implants: -KRISTINA EVEREST RODS AND SCREWS -GLOBUS SABLE CAGE MED, 9-17, 8 DEGX1; GLOBUS INTRALIFT 8MM LONG X2 -AUTOGRAFT, DBM, ARTHROCELL, ALLOCELL, MAGNATOS Anesthesia: GETA Surgeon: Valdemar Hendrickson Tap Puller #1: Gumaro Hernandez (WAS PRESENT AND ASSISTED WITH ALL ASPECTS OF THE CASE FROM POSITION TO DRESSING) Estimated Blood Loss (ml): 450 IV fluids (ml): 2,200 Urine output (ml): 350 Pathology: none sent Condition: stable Disposition: PACU Indications for Procedure: Ms. Hayden is presenting for evaluation of low back and bilateral lower extremity pain, bilateral lower extremity numbness, tingling, and weakness. It was my pleasure to have seen and examined Ms. Hayden. In our visit today we have had a chance to go over subjective complaints, physical examination findings and treatments including the natural course history without intervention and various interventional options. The patients imaging demonstrates: XRay Lumbar Multiview (AP, Lateral, Flexion, Extension) with AP pelvis; 5 views taken at [facility] on 05/26/23 of Lumbar Spine: Images reviewed and demonstrate severe spondylotic changes from L2-S1 with disc collapse, osteophytosis, facet arthrosis, endplate sclerosis and cyst formation as well as flattening of the normal LL due to these changes. LL is 19 deg. PI 48 deg. No fractures noted. Foraminal stenosis due to facet overgrowth noted. No lesions noted. Surgical changes at L5-S1 noted with reasonable hardware placement and PLIBF. [facility] 05[facility]05/2023 of the LumbarSpine: Images reviewed demonstrate severe spondylosis with severe stenosis L2-S1 with disc collapse, bulging, herniation, facet arthropathy, ligamental hypertrophy, lateral recess stenosis all contributing to overall severe lumbar central and b/l foraminal stenosis. There is flattened normal LL as described. No lesions noted. NO fractures noted. HNP noted at L2-3 and L3-4 causing critical stenosis at these levels. HX of L5-S1 PLIBF noted. CT [facility] at [facility] from02/05/22 of Lumbar Spine: - Re-reviewed today with the patient. IMPRESSION: 1. No evidence of fracture of the lumbar spine. 2. Disc degeneration changes resulting in moderate spinal canal stenosis at L2- L3 and left subarticular disc protrusion at T12-L1 which mildly narrows the left foramen. Findings are similar to prior 11/13/2020. On physical exam, Ms. Hayden demonstrates: A continued constant sharp pain throughout the low back that radiates down into the bilateral lower extremities with a shooting, throbbing quality. She states her lower extremity pain is associated with numbness and tingling. She notes progressive lower extremity weakness bilaterally. She states she presented to the ER about 2 weeks ago due to severe, debilitating low back pain and inability to ambulate for 4 days straight. She notes her symptoms have remained relatively constant since she was evaluated in the ER. She states her symptoms worsen after prolonged sitting, standing, and walking. She notes her symptoms are most severe in the morning. She reports experiencing severe sleep disturbances related to her ongoing pain and associated symptoms. I have explained to the patient that as their condition progresses it will cause further neurological deficits and eventual paralysis. Based on the patients imaging, physical exam, and the rapid progression and disabling nature of their symptoms, at this time I recommend surgery in the form of a: Revision L2-Pelvis decompression and fusion. I discussed the risk and benefits of this procedure at length with Ms. Hayden. The patient agreed to considered pursuing the procedure above mentioned. Prior to surgery, she should follow up with her PCP (Cardio, ID, IM etc) for clearance. Questions were invited and answered, and the patient wishes to proceed as outlined below. Currently, I am recommendin.Revision L2-Pelvis decompression and fusion Description of Procedure: L2-PELVIS DECOMPRESSION AND FUSION (TALIA) The patient was seen and examined in the preoperative area. All preoperative protocols were followed. Informed consent was obtained, risks and benefits of the procedure were discussed at length. Risks including bleeding infection damage to the surrounding tissue and risk of reoperation were discussed with the patient. Risk of anesthesia up to and including was discussed with the patient. These are outlined in the risk review. They were willing to accept these risks and all the risks of surgery. The patient was given a weight-based dose of antibiotics in the form of 3 g Ancef. The patient was seen and evaluated by the anesthesia team who deemed them fit for surgery. The site was marked, the patient was willing to proceed with the procedure. The patient was transferred to the operative suite by the Department of anesthesia. They were then drifted off to sleep by the department anesthesia and GETA was performed. The patient tolerated this well. Thrasher catheter was placed by nursing staff, a-traumatically. Once confirmation of lines and ventilation the patient was transferred to a prone Trios spine table very carefully. The head was secured and stable. X Ray confirmed alignment. All bony prominences including wrists, elbows, axilla, chest, hips, and thighs, and feet were padded very well. Special attention was paid to the genitalia, and these were padded accordingly. SCDs were placed on bilateral lower extremities and were connected. Arms were well padded and placed at 90/90 up and out and well padded. Safety strap and tape placed on the patient. Once in position, again we confirmed good ventilation capabilities and that lines were running appropriately. The patients lumbosacral pelvic was then exposed. Hair was removed for incision. 1010s were placed outlining the incision site. Standard alcohol was used to clean the incision site and allowed to dry. C-arm was used to bio-pearl the patient and confirm level for incision which was marked with a skin marker. Operative briefing was performed with all teams and everyone in agreement to proceed. The patient was then prepped and draped in a normal ster ile fashion. Timeout was then performed, and all parties agreed with the procedure to be performed. Midline skin incision was then made over the previously bookmarked area and dissection taken down to the lumbosacral fascia which was identified and cleaned with a otto. There was excessive sub-q adipose that was obtrusive and needed to be retracted. Once midline was identified, fasciotomy was made over the SP of L1-S1 and pelvis. Subperiosteal dissection was then taken down over the lamina and facet joints and TPs were exposed and trough made posterolateral. TPs were then decorticated with a high speed kvng for lateral fusion. Dissection was taken out over the sacrum to the pelvis. Previous hardware was identified at L5- S1 and the fusion was explored in this area. There was reasonable screw purchase, some posterolateral fusion bone that was poorly attached tothe TPs. The hardware was removed without issues and easily as the L5 screws were loose. Then, SI joint identified and modified Cantrell starting point for pelvic screws identified as well. Retractors placed. Wound was irrigated and lateral image with penfield 4 placed at the pars of L4 confirmed levels for operation. SP clamp was then placed for the Coco Controller navigation tracker and secured. The wound was then filled with NSS and Z-drape. A 3D Ziehm spin was then obtained and registered. Once confirmation of accuracy screws were then placed from L2- Pelvis using navigation. Navigated high speed kvng was used to make a submersible pilot hole followed by a navigated awl-tap passed through the pedicle into the body. A ball tip probe then confirmed within the pedicle. Screw was then measured and placed using a navigated screwdriver. After screws were placed from L2-S1, AP image confirmed safe placement of screws. Lateral images as well as navigation were then used to place bilateral pelvic screws as well as SI fusion screws. Starting point selected just lateral to the SI joint and S2 pseudo facet. Lateral image taken and kvng used to make the submersible pilot hole. Navigated kvng then navigated awl tap passed into the pelvis under lateral imaging just above the sciatic notch. 30 deg/30deg iliac oblique then taken to confirm within the teardrop and ball tip probe used to probe good bone. Screw was then measured and selected and placed under lateral imaging with navigated screwdriver. Then navigated kvng was used to create starting point for S2Ai type SIJ fusion screw and the same process was completed. Siros screw was measured and placed for SI joint fusion. This process was repeated on the contralateral side. Screws were then visualized and appeared safe. All screws were then tested, and reliably tested screws tested above 14 mA. We then proceeded to decompression and interbody placement. The SIJ were decorticated with kvng bilaterally to allow for graft placement later. At L4-5, bilateral laminectomy, complete facetectomy and foraminotomy was performed as described above. There was also a large disc osteophyte complex that was identified once disc space was found. The dura was carefully dissected off this anteriorly and b/l. Once encountered, the disc space was then accessed in a similar fashion and neural elements protected. Osteotome was passed into the disc space under lateral imaging followed by raptor and then sequential jana until there was good bleeding eplate. The disc material was removed with pituitary. A complete discectomy performed there was good mobility at this level. Cage was then sized and selected. Magnatos, Autograft and allograft was then placed anterior in the disc space and the cage was then inserted and impacted into place under lateral. AP image, as before, was taken to ensure midline placement. The cage was then expanded into position. During expansion, the cage seemed to fail to expand completely on the RHS. The LHS expanded very well and recreated height and lordosis. The cage was tested and was very stable and since it was in safe position without any other issues it was elected to keep the cage in position. The wound was irrigated. Meticulous hemostasis then performed, and attention turned to L3-4. At L3-4 again bilateral laminectomy, complete facetectomy and foraminotomy were performed. The neural elements were less scared at this level; however, it was very unstable. The elements were then protected, and disc space accessed. Sequential shaving performed until desired height and lordosis. Cage selected, and graft placed anterior to the cage within the disc space. Cage was then placed under lateral image, expanded and had good height, lordosis and deformity correction. The wound was irrigated, and meticulous hemostasis performed once again. At L2-3 again bilateral laminectomy, complete facetectomy and foraminotomy were performed. The elements were then protected, and disc space accessed. Sequential shaving performed until desired height and lordosis. Cage selected, and graft placed anterior to the cage within the disc space. Cage was then placed under lateral image, expanded and had good height, lordosis and deformity correction. The wound was irrigated, and meticulous hemostasis performed once again. Attention was then drawn to ines placement. Rods were selected, measured, cut and bent to appropriate lordosis. They were then secured into pelvic screws b/l. Sequential reduction then done into each screw and set screw placed. Set screws were then final tightened and lateral image showed good lordosis reduction. Once rods were secured, cross links were selected and placed and final tightened. The wound was then irrigated with 3L Ancef irrigation, 3L gentamicin irrigation 2L irricept, 2L betadine and 3L NSS. Surgicel was then placed on the dura, which was inspected and had no injury. Then, in the posterolateral gutter was placed, graft mixture was placed in the PL gutters Allograft, DBM, allocell, autograft mixture. This was impacted into position and surgical placed over it. 2g Vanco powder was then placed deep in the wound. A deep, subfascial drain was placed and a superficial facial drain placed. We then proceeded with layered closure. #1 PDS placed in the deep fascia. 0 Vicryl placed in the deep subq, 2-0 placed in the superficial subq and crista placed in the skin. The wound edges approximated very well. The wound was then cleaned with ETOH and dressed with optifoam dressing, drain sponges and tegaderms. Drains sewed into position. IONM confirmed no changes. The patient was then transferred off the [facility] spine table to their hospital bed a-traumatically. Drains continued to hold suction. The patient was then extubated and transferred to the ICU in stable condition having tolerated the procedure with no complications.
--- NOTE | 2023-11-15 13:42 | XR ---
EXAM TYPE: LUMBAR SPINE X RAY SERIES COMPARISON: NONE HISTORY: Intra-Op surgery TECHNIQUE: 4 views are submitted. FINDINGS: Limited resolution images demonstrate evidence of intraoperative changes involving the lumbar spine. Surgical crista are noted. IMPRESSION: 1. See above.
--- NOTE | 2023-11-15 13:42 | FL ---
EXAMINATION TYPE: FL guidance operating room DATE OF EXAM: 11/15/2023 HISTORY: Fluoroscopy time Total dose area product (DAP) in uGy*m?, mGy*cm? (or similar): 52.8633 IMPRESSION: 1. Fluoroscopy time.
[2023-11-15] MEDS: HYDROmorphone 0.5 MG/0.5 ML SYRINGE IVP PRN (14:57)
[2023-11-15] MEDS: ACETAMINOPHEN TAB 325 MG TAB PO SCH (16:58)
[2023-11-15] MEDS: GABAPENTIN 300 MG CAP PO SCH (16:58)
[2023-11-15] MEDS: HYDROmorphone 1 MG/ML 1 ML SYRINGE IVP PRN (16:58)
[2023-11-15] MEDS: DULoxetine HCL 30 MG CAPSULE.DR PO SCH (21:26)
[2023-11-15] MEDS: oxyCODONE-APAP 5-325MG 1 EACH TAB PO PRN (21:26)
[2023-11-15] MEDS: PANTOPRAZOLE 40 MG TABLET PO SCH (21:26)
[2023-11-15] MEDS: PREGABALIN 75 MG CAP PO SCH (21:26)
[2023-11-15] MEDS: SENNOSIDES-DOCUSATE SODIUM 1 EACH TAB PO PRN (21:27)
[2023-11-15] MEDS: FORMOTEROL FUMARATE 20 MCG/2 ML NEBU INHALATION SCH (21:50)
--- NOTE | 2023-11-16 00:10 | CT ---
EXAMINATION TYPE: CT lumbar spine wo con DATE OF EXAM: 11/15/2023 11:58 PM COMPARISON: Prior CT September 17, 2023 HISTORY: s/p revision L2-pelvis decompression and fusion CT DLP: 1957.8 mGycm Automated exposure control for dose reduction was used. Unenhanced CT of the lumbar spine was performed. Bone and soft tissue window settings are submitted as well as coronal and sagittal reconstructions. There are 5 lumbar type vertebra redemonstrated. There is new surgical change with interpedicular ines s and screws transfixing L2 vertebra bilaterally into the upper sacrum with additional surgical cool e or extension through the bilateral sacroiliac joints on current study. Extensive streak artifact fr om metallic hardware makes evaluation suboptimal. Metallic disc material at L2-L3 through L4-L5 level s is now present. Lung segment posterior decompression changes are now present. There is persistent m oderate to advanced disc space narrowing and disc calcification at the lumbosacral junction. Alignmen t stable and satisfactory. Foci of air in the deep soft tissue are present. The right L5 screw on cur rent study extends lateral to the right L5 vertebra similar to prior. There is partial visualization of Thrasher catheter decompressing the bladder. No free fluid in the pelvis is seen. Moderate calcified plaque of the infrarenal abdominal aorta redemonstrated. IMPRESSION: Long segment postsurgical change to the lumbar spine extending into the pelvis is now pre sent. New Hardware position is grossly satisfactory. Alignment is stable.
[2023-11-16] MEDS: LACTATED RINGERS 1,000 ML IV SCH (00:49)
--- NOTE | 2023-11-16 01:12 | CONS ---
CONSULTATION 63-year-old white female, status post fusion of the lumbar spine. She has a history of lumbar facet joint, lumbar stenosis, spondylosis, low back pain, status post L2-S1 fusions. PHYSICAL EXAMINATION: VITAL SIGNS: Stable. Afebrile. O2 is 100% on 2 L. Temp 97.8, pulse rate 61 to 104, respiratory rate 19-22. CARDIOVASCULAR: S1, S2. GI: Soft, nontender. Hematology: Negative Homans. PSYCH: Fair mood and affect. LUNGS: Transmitted upper sounds. BMI is over 40. Lipitor, aspirin, vitamin D3, dexamethasone, Flexeril, Cymbalta, Perforomist, [place], Dilaudid p.r.n. Appears to be stable except she is sleepy and tired. Continue on Protonix, Lyrica. Prognosis guarded. MMODL / IJN: [id number] /
[2023-11-16] MEDS: CYCLOBENZAPRINE 5 MG TAB PO PRN (04:54)
[2023-11-16 08:44] LABS: Basophils # (A) 0.01 X 10*3/uL (0.00-0.10); Basophils % (A) 0.1 %; Eosinophils # (A) 0.01 X 10*3/uL (0.04-0.35); Eosinophils % (A) 0.1 %; HCT 33.3 % (37.2-46.3); HGB 10.9 g/dL (12.0-15.0); Lymphocytes # (A) 1.22 X 10*3/uL (0.90-5.00); Lymphocytes % (A) 13.7 %; MCH 31.1 pg (27.0-32.0); MCHC 32.7 g/dL (32.0-37.0); MCV 95.1 FL (80.0-97.0); Mean Platelet Volume 12.1 FL (9.5-12.2); Monocytes # (A) 0.86 X 10*3/uL (0.20-1.00); Monocytes % (A) 9.6 %; NRBC Per 100 WBC 0 X 10*3/uL (0.00-0.01); Neutrophils # (A) 6.78 X 10*3/uL (1.80-7.70); Neutrophils % (A) 76.1 %; Platelet Count 151 X 10*3/uL (140-440); RDW 13.9 % (11.5-14.5); WBC 8.92 X 10*3/uL (4.50-10.00)
[2023-11-16] MEDS: DOCUSATE 100 MG CAP PO SCH (08:54)
[2023-11-16] MEDS: LOSARTAN 50 MG TAB PO SCH (08:54)
[2023-11-16] MEDS: ATORVASTATIN 10 MG TAB PO SCH (08:55)
[2023-11-16] MEDS: ASPIRIN 81 MG PO SCH (08:55)
[2023-11-16] MEDS: CHOLECALCIFEROL 125 MCG (5000 IU) TABLET PO SCH (08:55)
[2023-11-16 08:58] LABS: Blood Urea Nitrogen 12.6 mg/dL (9.0-27.0); Calcium 8.9 mg/dL (8.7-10.3); Carbon Dioxide 25.9 mmol/L (21.6-31.8); Chloride 105 mmol/L (96-109); Glucose 115 mg/dL (70-110); Potassium 3.4 mmol/L (3.5-5.5); Sodium 141 mmol/L (135-145)
--- NOTE | 2023-11-16 12:13 | P.PN ---
Subjective Progress Note Date: 11/16/23 Principal diagnosis: 1. L2-3 and L3-4 HNP with spondylosis and stenosis, severe 2. 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 Bilateral lower extremity radiculopathy 4. Bilateral lower extremity weakness Patient was seen at bedside this morning lying in the semirecumbent position with Ioban dressing present over lumbar spine. Patient says she is in a moderate amount of pain currently. She says she is looking forward to working with therapy later this morning. She is currently has Thrasher catheter in place. Patient states most the pain is located in the low back with some radiation of pain down the left buttocks. Patient denies any significant weakness or other orthopedic complaints. Objective - Vital Signs Vital signs: Vital Signs Temp 98.2 F 11/16/23 07:54 Pulse 96 11/16/23 09:36 Resp 17 11/16/23 08:59 BP 101/67 11/16/23 07:54 Pulse Ox 93 L 11/16/23 09:28 FiO2 Intake & Output 11/15/23 11/16/23 11/16/23 18:59 06:59 18:59 Intake Total 2952 Output Total 750 1250 Balance 2202 -1250 Weight 107.3 kg Intake: IV 2952 Output: Drainage 300 Back 300 Urine 300 950 Uretheral (Thrasher) 600 Estimated Blood Loss 450 Other: Voiding Method Indwelling Catheter Indwelling Catheter # Voids 0 - Exam Inspection: Ioban dressing present over lumbar spine. Dressing appears to be clean, dry, intact. Dressing checks daily. Plan for dressing change tomorrow. Sensation: Some generalized numbness present down the bilateral lower extremities. Sensation is equal, symmetric, by intact throughout the upper and lower extremities. Palpation: Moderate tenderness to palpation diffusely throughout the lumbar spine at midline incision. NTTP throughout rest of the exam Range of motion: Full range of motion throughout bilateral upper extremities on exam. Limited range of motion in bilateral hips and knees in flexion so extension secondary to referred pain to the low back and some weakness in the bilateral hips. Motor: 4-/5 in bilateral lower extremities. 4+/5 in all major motor groups in bilateral upper extremities. Neurovascular: Radial pulse intact, 2+ bilaterally. Cap refill under 3 seconds in digits of upper extremities. Special test: Negative Homans bilaterally. Negative clonus bilaterally. Negative Nelson bilaterally. - Labs CBC & Chem 7: 11/16/23 03:48 11/16/23 03:48 Labs: Abnormal Lab Results - Last 24 Hours (Table) 11/16/23 11/16/23 Range/Units 03:48 03:48 RBC 3.50 L (4.10-5.20) X 10*6/uL Hgb 10.9 L (12.0-15.0) g/dL Hct 33.3 L (37.2-46.3) % Eosinophils # 0.01 L (0.04-0.35) X 10*3/uL Potassium 3.4 L (3.5-5.5) mmol/L Glucose 115 H (70-110) mg/dL Assessment and Plan Assessment: 1. L2-3 and L3-4 HNP with spondylosis and stenosis, severe; L4-5 adjacent segment disease; Bilateral lower extremity radiculopathy; Bilateral lower extremity weakness -Postop day 1 status post revision [id number] decompression and fusion Plan: 1. L2-3 and L3-4 HNP with spondylosis and stenosis, severe; L4-5 adjacent segment disease; Bilateral lower extremity radiculopathy; Bilateral lower extremity weakness -surgery performed yesterday, Wednesday, 4revision [id number] decompression and fusion. Patient stable at bedside this morning. Work with PT/OT daily. Plan for Thrasher to be removed tomorrow morning. Maintain drain to full suction at this time. Plan for dressing change tomorrow morning. Weightbearing as tolerated with walker and brace as needed. Pain medication as needed. We will continue to follow patient during the stay in hospital. Discharge planning pending 2. Appreciate medical management 3. Pain management -oxycodone; [place]; Flexeril; Lyrica 4. DVT prophylaxis -aspirin 5. GI prophylaxis -senna; Colace; milk of mag; Protonix 6. PT/OT -weightbearing as tolerated with walker and assistance as needed 7. Encourage incentive spirometer use 8. Discharge planning -pending Time with Patient: Less than 30
--- NOTE | 2023-11-16 21:07 | PN ---
PROGRESS NOTE SUBJECTIVE: Status post lumbar laminectomy. Her oxygen level is 93% on 2 L. Getting her breathing treatment. OBJECTIVE: VITAL SIGNS: Pulse 60s to 70s. GENERAL: She is sleepy, lethargic . CARDIOVASCULAR: S1, S2. LABORATORY DATA: Hemoglobin is 10.9, white count 8.92, sodium 141, potassium 2.4, BUN is 12.6, creatinine 0.7, sugar 115. ASSESSMENT: Status post lumbar surgery. Continue home medications, Lipitor for cholesterol. We gave her Perforomist for asthma, COPD. Cymbalta for chronic pain. [place] is for pain, PT OT. Monitor constipation. Protonix for GERD. Lyrica for neuropathy. PROGNOSIS: Guarded. MMODL / IJN: [id number] /
--- NOTE | 2023-11-17 07:50 | CDI ---
Documentation Clarification Form Date: 11/17/2023 From: Izabela Valencia Phone: [phone] Admit Date: 11/15/2023 05:42:00 AM Patient Name: Mohini Hayden Visit Number: [id number] Discharge Date: ATTENTION: The Clinical Documentation Specialists (CDI) and [facility] Coding Staff appreciate your assistance in clarifying documentation. Please respond to the clarification below the line at the bottom and electronically sign. The CDI & [facility] Coding staff will review the response and follow-up if needed. Please note: Queries are made part of the Legal Health Record. If you have any questions, please contact the author of this message via ITS. Dr. Chris Mann: Patient has a documented BMI of 43.3 on 11/14. Additional clarification is requested. History/Risk Factors: 63-year-old female with a history of COPD, HTN, Seizure disorder, Sleep apnea/CPAP who presents for lumbar fusion surgery Clinical Indicators: 11/14 Patients weight is 107.3kg Patients height is 5ft 2in Calculated BMI is 43.3 Treatments: Healthy heart diet Please clarify if patients BMI indicates an additional diagnosis: [ ] Morbid (Extreme) (severe) obesity [ ] No additional diagnosis/not clinically significant [ ] Other, please specify ____ [ ] Unable to determine Reference: NIH Classification for BMI Overweight BMI 2529.9 Obesity (Class 1) BMI 3034.9 Obesity (Class 2) BMI 3539.9 Morbid obesity (Class 3/Extreme/severe) BMI =40 MTDD
--- NOTE | 2023-11-17 13:37 | P.PN ---
Subjective Progress Note Date: 11/17/23 Principal diagnosis: 1. L2-3 and L3-4 HNP with spondylosis and stenosis, severe 2. 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 Bilateral lower extremity radiculopathy 4. Bilateral lower extremity weakness Patient was seen at bedside this morning lying in semirecumbent position with dressing present over her spine. Dressing was taken down and new dressing was placed over incision. Patient says she is still having decent amount of pain in the left buttocks and extends just above the left knee. Patient describes it as feeling like spasms. Nursing to remove Thrasher this morning. Patient denies chest pain, fever, shortness of breath, nausea,, change in vision, loss of bowel/bladder control. Objective - Vital Signs Vital signs: Vital Signs Temp 97.8 F 11/17/23 07:17 Pulse 97 11/17/23 07:17 Resp 17 11/17/23 07:17 BP 119/70 11/17/23 07:17 Pulse Ox 97 11/17/23 07:17 FiO2 Intake & Output 11/16/23 11/17/23 11/17/23 18:59 06:59 18:59 Output Total 500 310 600 Balance -500 -310 -600 Output: Drainage 200 60 Back 200 60 Urine 300 250 600 Uretheral (Thrasher) 300 Other: Voiding Method Indwelling Catheter Indwelling Catheter Indwelling Catheter - Exam Inspection: [place] dressing present over lumbar spine. Dressing appears to be clean, dry, intact. Dressing removed. [place] appear to be clean, dry, intact. Negative for any drainage. New Optifoam dressing placed over incision. Drain left in place at this time. Plan for drain to be removed tomorrow morning. Sensation: Some generalized numbness present down the bilateral lower extremities. Sensation is equal, symmetric, by intact throughout the upper and lower extremities. Palpation: Moderate tenderness to palpation diffusely throughout the lumbar spine at midline incision. NTTP throughout rest of the exam Range of motion: Full range of motion throughout bilateral upper extremities on exam. Limited range of motion in bilateral hips and knees in flexion so extension secondary to referred pain to the low back and some weakness in the bilateral hips. Motor: 4-/5 in bilateral lower extremities. 4+/5 in all major motor groups in bilateral upper extremities. Neurovascular: Radial pulse intact, 2+ bilaterally. Cap refill under 3 seconds in digits of upper extremities. Special test: Negative Homans bilaterally. Negative clonus bilaterally. Negative Nelson bilaterally. - Labs CBC & Chem 7: 11/16/23 03:48 11/16/23 03:48 Assessment and Plan Assessment: 1. L2-3 and L3-4 HNP with spondylosis and stenosis, severe; L4-5 adjacent segment disease; Bilateral lower extremity radiculopathy; Bilateral lower extremity weakness -Postop day 2 status post revision [id number] decompression and fusion Plan: 1. L2-3 and L3-4 HNP with spondylosis and stenosis, severe; L4-5 adjacent segment disease; Bilateral lower extremity radiculopathy; Bilateral lower extremity weakness -surgery performed Wednesday, 4revision [id number] decompression and fusion. Patient stable at bedside this morning. Work with PT/OT daily. Dressing change at bedside this morning. Plan for Thrasher to be removed this morning. Maintain drain to full suction at this time. Fair amount of output in drain. Plan for drain to be removed tomorrow morning. Weightbearing as tolerated with walker and brace as needed. Pain medication as needed. We will continue to follow patient during the stay in hospital. Plan for discharge home on Wednesday. 2. Appreciate medical management 3. Pain management -oxycodone; [place]; Flexeril; Lyrica 4. DVT prophylaxis -aspirin 5. GI prophylaxis -senna; Colace; milk of mag; Protonix 6. PT/OT -weightbearing as tolerated with walker and assistance as needed 7. Encourage incentive spirometer use 8. Discharge planning -plan for discharge home on Wednesday Time with Patient: Less than 30
[2023-11-17] MEDS: HYDROcodone/APAP 7.5-325MG 1 EACH TAB PO PRN (17:06)
--- NOTE | 2023-11-18 07:07 | P.PN ---
Subjective Progress Note Date: 11/18/23 Principal diagnosis: 1. L2-3 and L3-4 HNP with spondylosis and stenosis, severe 2. 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 Bilateral lower extremity radiculopathy 4. Bilateral lower extremity weakness Patient was seen at bedside this morning lying in semirecumbent position with dressing present over lumbar spine. Patient says she is still having decent amount of pain in the left buttocks and extends just above the left knee. Patient describes it as feeling like spasms. Patient says she is feeling much better this morning. She says she has been icing her low back throughout the night. Patient is looking forward to potentially going home tomorrow. Patient says she is looking forward to working with therapy later today. Patient denies chest pain, fever, shortness of breath, nausea,, change in vision, loss of bowel/bladder control. Objective - Vital Signs Vital signs: Vital Signs Temp 98.5 F 11/18/23 02:00 Pulse 89 11/18/23 02:00 Resp 17 11/17/23 13:54 BP 110/65 11/18/23 04:14 Pulse Ox 96 11/18/23 02:00 FiO2 Intake & Output 11/17/23 11/18/23 11/18/23 18:59 06:59 18:59 Intake Total 600 Output Total 600 210 Balance -600 390 Intake: Oral 600 Output: Drainage 210 Back 210 Urine 600 Uretheral (Thrasher) 300 Other: Voiding Method Indwelling Catheter # Voids 1 2 - Exam Inspection: Dressing appears to be clean, dry, intact. [place] appear to be clean, dry, intact. Negative for any drainage. Drain removed at bedside. Dressing placed over drain incision. Sensation: Some generalized numbness present down the bilateral lower extremities. Sensation is equal, symmetric, by intact throughout the upper and lower extremities. Palpation: Moderate tenderness to palpation diffusely throughout the lumbar spine at midline incision. NTTP throughout rest of the exam Range of motion: Full range of motion throughout bilateral upper extremities on exam. Limited range of motion in bilateral hips and knees in flexion so extension secondary to referred pain to the low back and some weakness in the bilateral hips. Motor: 4-/5 in bilateral lower extremities. 4+/5 in all major motor groups in bilateral upper extremities. Neurovascular: Radial pulse intact, 2+ bilaterally. Cap refill under 3 seconds in digits of upper extremities. Special test: Negative Homans bilaterally. Negative clonus bilaterally. Negative Nelson bilaterally. - Labs CBC & Chem 7: 11/16/23 03:48 11/16/23 03:48 Assessment and Plan Assessment: 1. L2-3 and L3-4 HNP with spondylosis and stenosis, severe; L4-5 adjacent segment disease; Bilateral lower extremity radiculopathy; Bilateral lower extremity weakness -Postop day 3 status post revision [id number] decompression and fusion Plan: 1. L2-3 and L3-4 HNP with spondylosis and stenosis, severe; L4-5 adjacent segment disease; Bilateral lower extremity radiculopathy; Bilateral lower extr emity weakness -surgery performed Wednesday, 4revision [id number] decompression and fusion. Patient stable at bedside this morning. Work with PT/OT daily. Dressing appears to be clean, dry, intact. Drain removed at bedside this morning. Weightbearing as tolerated with walker and brace as nee ded. Pain medication as needed. We will continue to follow patient during the stay in hospital. Plan for discharge home tomorrow 2. Appreciate medical management 3. Pain management -oxycodone; [place]; Flexeril; Lyrica 4. DVT prophylaxis -aspirin 5. GI prophylaxis -senna; Colace; milk of mag; Protonix 6. PT/OT -weightbearing as tolerated with walker and assistance as needed 7. Encourage incentive spirometer use 8. Discharge planning -plan for discharge home tomorrow Time with Patient: Less than 30
[2023-11-18] MEDS: HYDROmorphone 0.5 MG/0.5 ML SYRINGE IVP PRN (09:50)
[2023-11-18] MEDS: methylPREDNISolone SOD SUCCI 125 MG/2 ML VIAL IV STA (12:17)
--- NOTE | 2023-11-18 14:12 | PN ---
PROGRESS NOTE DATE OF SERVICE: 11/17/2023 SUBJECTIVE: Remains on Perforomist. White count is 8.9, hemoglobin is 10.9, sodium 141, potassium 3.4, glucose 115, BUN is 12.6, creatinine 0.7. OBJECTIVE: VITAL SIGNS: Temp 98.7. Blood pressure 105/69, O2 sat 97 on room air, 16 to 18 respiratory rate, pulse 80 to 88. CARDIOVASCULAR: S1, S2. LUNGS: Transmitted upper sounds. GI: Soft. HEMATOLOGY: Negative Homans. She has pain in her left hip. She has reported that after her recent surgery. I gave her some Solu-Medrol for that hip, in place. She looks like she has bursitis of the hip with a tense palpation of the hip. Her home medications have been reordered. Postop care per . Medically, she is stable. PT/OT will be done possibly on her hip, and maybe get an x-ray on her hip as she is in a lot of pain on that hip. PROGNOSIS: Guarded. MMODL / IJN: [id number] /
--- NOTE | 2023-11-18 14:36 | PN ---
PROGRESS NOTE SUBJECTIVE: A 63-year-old white female, status post lumbar fusion. Still has pain in her left hip. PT/OT is being done. She is status post lumbar fusion, spondylosis, radiculopathies, weakness. OBJECTIVE: VITAL SIGNS: Temp 95, pulse 89, respiratory rate 18, blood pressure 110/65, O2 sat 96%. CARDIOVASCULAR: S1, S2. LUNGS: Transmitted upper sounds. HEMATOLOGY: Negative Homans, status post pyloric stenosis. Pain control. Discharge home tomorrow. She is doing better. Prognosis guarded. due to her pain in her hip. Prognosis is guarded. MMODL / IJN: [id number] /
[2023-11-19 03:22] VITALS: RESP 16
[2023-11-19 08:50] VITALS: BP 123/77; TEMP 98.3
[2023-11-19 11:12] VITALS: PULSE 92
--- NOTE | 2023-11-19 11:53 | P.PN ---
Subjective Progress Note Date: 11/19/23 Principal diagnosis: 1. L2-3 and L3-4 HNP with spondylosis and stenosis, severe 2. 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 Bilateral lower extremity radiculopathy 4. Bilateral lower extremity weakness Patient was seen at bedside this morning lying in semirecumbent position with dressing present over lumbar spine. Patient says she is still having decent amount of pain in the left buttocks/left hip. Patient describes it as feeling like spasms. Patient says she is feeling much better this morning. She says she has been icing her low back throughout the night. Patient is looking forward to potentially going home today. Patient says she is looking forward to working with therapy later today. Patient denies chest pain, fever, shortness of breath, nausea,, change in vision, loss of bowel/bladder control. Objective - Vital Signs Vital signs: Vital Signs Temp 98.3 F 11/19/23 07:11 Pulse 92 11/19/23 07:11 Resp 16 11/19/23 07:11 BP 123/77 11/19/23 07:11 Pulse Ox 98 11/19/23 07:11 FiO2 Intake & Output 11/18/23 11/19/23 11/19/23 18:59 06:59 18:59 Other: # Voids 1 2 # Bowel Movements 1 - Exam Inspection: Dressing appears to be clean, dry, intact. [place] appear to be clean, dry, intact. Negative for any drainage. Sensation: Some generalized numbness present down the bilateral lower extremitie s. Sensation is equal, symmetric, by intact throughout the upper and lower extremities. Palpation: Moderate tenderness to palpation diffusely throughout the lumbar spine at midline incision. NTTP throughout rest of the exam Range of motion: Full range of motion throughout bilateral upper extremities on exam. Limited range of motion in bilateral hips and knees in flexion so extension secondary to referred pain to the low back and some weakness in the bilateral hips. Motor: 4-/5 in bilateral lower extremities. 4+/5 in all major motor groups in bilateral upper extremities. Neurovascular: Radial pulse intact, 2+ bilaterally. Cap refill under 3 seconds in digits of upper extremities. Special test: Negative Homans bilaterally. Negative clonus bilaterally. Negative Nelson bilaterally. - Labs CBC & Chem 7: 11/16/23 03:48 07/02/24 03:48 Assessment and Plan Assessment: 1. L2-3 and L3-4 HNP with spondylosis and stenosis, severe; L4-5 adjacent segment disease; Bilateral lower extremity radiculopathy; Bilateral lower extremity weakness -Postop day 4 status post revision [id number] decompression and fusion Plan: 1. L2-3 and L3-4 HNP with spondylosis and stenosis, severe; L4-5 adjacent segment disease; Bilateral lower extremity radiculopathy; Bilateral lower e xtremity weakness -surgery performed Wednesday, 4revision [id number] decompression and fusion. Patient stable at bedside this morning. Work with PT/OT daily. Dressing appears to be clean, dry, intact. Weightbearing as tolerated with walker and brace as needed. Pain medication as needed. Di hope home today 2. Appreciate medical management 3. Pain management -oxycodone; [place]; Flexeril; Lyrica 4. DVT prophylaxis -aspirin 5. GI prophylaxis -senna; Colace; milk of mag; Protonix 6. PT/OT -weightbearing as tolerated with walker and assistance as needed 7. Encourage incentive spirometer use 8. Discharge planning -discharge home today Time with Patient: Less than 30
--- NOTE | 2023-11-19 11:58 | P.DS ---
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 Hendrickson Surgical procedures: Revision [id number] decompression and fusion Brief history: Patient is a 63-year-old female with a history of L2-3 and L3-4 HNP with spondylosis and stenosis, severe; L4-5 adjacent segment disease; Bilateral lower extremity radiculopathy; Bilateral lower extremity weakness. At this point patient has failed conservative treatment measures and has opted to proceed with a elective revision [id number] decompression and fusion. Hospital course: Details of patient's surgery can be found in operative report. Patient tolerated the procedure well and was subsequently transported to orthopedic floor. Patient's orthopeidc and medical care was provided daily. Patient had daily laboratory tests performed for evaluation of overall blood counts. Patient had daily physical therapy to include strengthening range of motion as well as education with walker ambulation. Patient was treated with aspirin for their postoperative DVT prophylaxis during their inpatient stay. Patient was noted to have a relatively uneventful postoperative course. Patient reported satisfactory pain control with oral pain medications by postoperative day 4. Patient showed satisfactory progress with physical therapy. Patient moved steadily through the program and had no difficulty meeting the goals by postoperative day 4. Given patient's otherwise satisfactory course and having met physical therapy goals, plan is to discharge patient home with health services on postoperative day 4. Discharge condition/disposition: Patient will be discharged home with health services in stable condition. Discharge medications: Instructions are given on resumption of patient's normal daily medications per primary care recommendation, in addition patient will be prescribed [place]; senna; Duricef; Flexeril. Spine Discharge and Recovery Instructions Date of Surgery: 11/15/2023 Diagnosis: L2-3 and L3-4 HNP with spondylosis and stenosis, severe; L4-5 adjacent segment disease; Bilateral lower extremity radiculopathy; Bilateral lower extremity weakness Procedure: revision [id number] decompression and fusion Medications: See medication list All medication refills should be obtained through your primary care doctor or your clinic spine surgeon. Please discuss prescription refills at your follow up appointment. Do not call the hospital for medication refills. Dressing: Leave your dressing in place for a total of 5 days post operatively. Then you may remove your dressing and leave open to air. Keep the area clean and if not able to keep area clean, then cover with sterile gauze and tape. Showering: You may shower 3 days after your procedure allowing soap and water to run over incision. Do not scrub. Do not soak. Blot dry. Follow up: Please confirm a follow up appointment with your surgeon 3 weeks post operatively. Please make an appointment to follow up with your PCP in 1-2 weeks after surgery for evaluation `3 phase, 3-week plan POST OP WEEKS 1-3 1. Lifting/carrying/pushing/pulling limited to less than 5 pounds. 2. Do not sit for longer than 15 minutes at one time. Get up and walk around. Prolonged sitting is NOT advised. If you lay down, see if you can tolerate laying down on you front (belly side) 3. Walk for periods of 15 minutes = 1 mile but no longer; do it multiple times times each day. 4. Ice your low back after activity. POST OP WEEKS 3-6 1. Lifting limited to less than 20 pounds. 2. Do not sit for longer than 30 minutes at a time. Frequently change positions. Use a sit-to stand workstation or take frequent breaks from sitting if you have returned to work. 3. Walk for 30 minutes each day. If possible, do these three or more times a day POST OP WEEKS 6+ At your 6-week appointment we will give you a physical therapy referral to focus on a core stabilization and strengthening program. You should also work on leg & buttock strengthening, hamstring & quadriceps stretching, and continue a low impact aerobic activity program such as swimming, walking, or riding a stationary bicycle. During the initial 6 weeks after your surgery, you are at the highest risk of re-injuring your spine. You should generally avoid BLTs (bending, lifting and twisting combination motions) and follow the above guidelines to reduce the chance of reinjury. You can anticipate post op appointments in our office at approximately 3 weeks and 6 weeks after your surgery. INCISION CARE: If your incision is not draining you do NOT need to cover it with a dressing. Keep your incision clean, dry and intact. In most cases, we apply skin glue, crista or sutures to the incision at the time of surgery. This will be like a crust or have the appearance of a scab and will fall off in time on its own. The stitches or crista need to be removed at 3 weeks post op appointment. You may begin to shower 3 days after surgery (this allows the glue to butt well). However, please avoid scrubbing the incision site or peeling off any of the skin glue. This will ensure optimal healing of your incision. Also, during this time avoid soaking the incision area in water - this includes swimming pools, hot tubs or baths. No ointments, lotions or oils on the incision until your surgeon allows. Leave crista, sutures or glue in place. Neurological dysfunction that comes on suddenly can also be a sign of a stroke. Below some common symptoms of a stroke are listed: B - balance difficulty such as sudden onset walking or leaning to one side - NEW E - eye problem such as sudden double vision or trouble seeing on one side - NEW F - Facial weakness or numbness on one side - NEW A - Arm or leg weakness or numbness on one side - NEW S - Slurred speech or difficulty with word finding - NEW T - Time is BRAIN! Call 911 as soon as you recognize these symptoms Diet: Consume a regular diet rich in vegetables and lean protein such as chicken or fish. You should consume in a ratio of approximately 20% fats|40% carbohydrates|40%protein. Vegetables, sweet potatoes, brown rice or quinoa are examples of good carbohydrates. Chips, white bread, cookies and sweets/sugar are examples of bad carbohydrates. Limit your bad carbs, go wild with good carbs. "Life's Simple 7" Guidelines as per [place] [employer] These will help you reclaim your life after surgery and painter helper in your recovery, keeping in mind your restrictions. (1) Get Active. Physical activity can help people lose weight, control high blood pressure and cholesterol, feel emotionally better, and sleep better. (2) Control Cholesterol. Avoid a diet high in saturated fat, trans fat, & cholesterol. Limit whole milk & cream, ice cream, butter, egg yolks, processed meats (like sausage and hot dogs), and fatty meats. Choose healthy foods that are low in saturated fat, trans fat and cholesterol which include: Fruits and vegetables, fiber rich grain products (like whole grain pasta and brown rice), lean meat such as chicken, fish, nuts, seeds, and legumes. (3) Eat Better. Eat small portions. Shop at the grocery with a list and do not stray from it. Tips for a healthy diet include: Limit sodium intake to less than 1500mg daily, avoid prepackaged, processed, and fast foods, choose a diet rich in fruits, vegetables, and whole grain, high fiber foods, and limit saturated & cholesterol in your diet. (4) Manage Blood Pressure. If you have high blood pressure, you should have a cuff at home so that you can check your blood pressure regularly. Be sure you have a good cuff. An arm one is generally better than a wrist one. Bring the cuff to a doctor's appointment to validate that the measurements that your cuff are taking are accurate. Take your blood pressure twice daily when you are sitting down and relaxing. Record the numbers in a log and bring this log with you to your doctors' appointments. (5) Lose Weight if your BMI is above 25. A healthy BMI is between 19-25. To calculate Your BMI, you may use a Standard BMI Calculator on the NIH BMI website: <www.nhlbi.nih.gov/guidelines/obesity/BMI/bmicalc.htm>. Weigh oneself daily. If you are overweight, set a goal to lose weight. A pound a week loss if needed is a good target. (6) Reduce Blood Sugar. Limit foods and liquids with "added sugars." (Added sugars include sucrose, fructose, glucose, maltose, dextrose, high fructose corn syrup, corn syrup, concentrated fruit juice and honey). (7) Stop Smoking. If you smoke, quitting smoking is one of the best things that you can do for your health. Smoking increases your risk of heart attack, stroke, and peripheral vascular disease, which is a build-up of plaque in your arteries. Please discard all the cigarettes and lighters in your house. Have a plan for what you will do when you have the urge to smoke. Direct and second- hand smoke shortens your life as well as the lives of your family, friends and others around you. For your health and the health of those around you, please consider quitting! Proper Bending Body Mechanics: Maintain a wide stance with one foot slightly in front of the other. Keep your back straight. Bend utilizing the strength in your hips and knees. Do not bend at the waist. Maintain the lifted object at your waist-level close to your body. Avoid lifting weight that causes immediately pain or pain anywhere in the body afterwards. Smoking/Nicotine If there was ever one thing that you could do to increase your overall health, decrease your risk of cardiovascular problems by about 39% the second you make the choice, it is to STOP SMOKING. Your body's most instant gratification is the second you stop smoking. We have all heard the studies, read the articles but it is true, smoking is extremely bad for your overall health, and moreover it is detrimental to your bone health. Nicotine, IN ANY FORM, kills bone cells, prevents your body from healing fractures, and significantly prolongs healing after surgery. In spine surgery specifically, it increases your risk of not healing your bones to create a fusion and increases your risk of having a revision surgery due to this up to 60%. I know it is hard. I know it feels impossible. But there are ways. Take control of your life. We are here to help you through it. And when you are ready, ask us and we can direct you to help if you desire. Use the START Plan to Quit Smoking (please visit the Helpguide.org website listed below for more information): S = Set a quit date. Choose a date within the next 2 weeks, so you have enough time to prepare without losing your motivation to quit. If you mainly smoke at work, quit on the weekend, so you have a few days to adjust to the change. T = Tell family, friends, and co-workers that you plan to quit. Let your friends and family in on your plan to quit smoking and tell them you need their support and encouragement to stop. Look for a quit brayan who wants to stop smoking as well. You can help each other get through the rough times. A = Anticipate and plan for the challenges you'll face while quitting. Most people who begin smoking again do so within the first 3 months. You can help yourself make it through by preparing ahead for common challenges, such as nicotine withdrawal and cigarette cravings. R = Remove cigarettes and other tobacco products from your home, car, and work. Throw away all your cigarettes (no emergency pack!), lighters, ashtrays, and matches. Wash your clothes and freshen up anything that smells like smoke. Shampoo your car, clean your drapes and carpet, and steam your furniture. T = Talk to your doctor about getting help to quit. Your doctor can prescribe medication to help with withdrawal and suggest other alternatives. If you can't see a doctor, you can get many products over the counter at your local pharmacy or grocery store, including the nicotine patch, nicotine lozenges, and nicotine gum. Resources for Quitting Smoking: <https://www.[place].gov/documents/[facility]/Quit_Tobacco_Resources_for_patients_313 480_7.pdf> Supplementation: Take recommended dosages of Vitamin D and Calcium to help fortify your bones and help them to heal. See your health maintenance packet for dosages and recommended levels. DVT/VTE prophylaxis: You will be given compression stockings from the hospital. Wear these daily for the first two weeks after surgery. You may take them off at night. You may be prescribed a medication to help thin your blood. Take this as directed. If you are not prescribed this medication, early and frequent ambulation has been shown to be the best prophylaxis to deep vein thrombosis and sequelae related to this event. Assessment: L2-3 and L3-4 HNP with spondylosis and stenosis, severe; L4-5 adjacent segment disease; Bilateral lower extremity radiculopathy; Bilateral lower extremity weakness Procedures: revision [id number] decompression and fusion Patient Condition at Discharge: Good Plan - Discharge Summary Discharge Rx Participant: Yes New Discharge Prescriptions: New cefaDROXiL [Duricef] 500 mg PO Q12HR 5 Days #10 cap Cyclobenzaprine [Flexeril] 5 mg PO TID #21 tablet HYDROcodone/APAP 10-325MG [[place] 10-325] 1 tab PO Q6HR PRN #28 tab PRN Reason: Pain Sennosides/Docusate Sodium [Senna Plus 8.6-50 mg Softgel] 1 each PO DAILY #20 capsule No Action Aspirin EC [Ecotrin] 81 mg PO QAM Pregabalin [Lyrica] 150 mg PO BID HYDROcodone/APAP 7.5-325MG [[place] 7.5-325] 1 tab PO Q6H PRN PRN Reason: Pain Esomeprazole Magnesium [NexIUM] 20 mg PO BID Meloxicam 15 mg PO QAM Atorvastatin [Lipitor] 10 mg PO QAM hydroCHLOROthiazide 25 mg PO QAM Docusate [Colace] 300 mg PO DAILY DULoxetine HCL [Cymbalta] 30 mg PO BID Fluticasone/Umeclidin/Vilanter [Trelegy Ellipta 200-62.5-25] 1 puff INHALATION DAILY PRN PRN Reason: Wheezing Cholecalciferol (Vitamin D3) [Vitamin D3 (125 MCG = 5,000 IU)] 375 mcg PO QAM Losartan Potassium 100 mg PO QAM Discharge Medication List Aspirin EC [Ecotrin] 81 mg PO QAM 03/26/14 [History] HYDROcodone/APAP 7.5-325MG [[place] 7.5-325] 1 tab PO Q6H PRN 12/03/14 [History] Pregabalin [Lyrica] 150 mg PO BID 12/03/14 [History] Esomeprazole Magnesium [NexIUM] 20 mg PO BID 01/17/15 [History] Meloxicam 15 mg PO QAM 04/13/17 [History] Atorvastatin [Lipitor] 10 mg PO QAM 05/22/22 [History] Cholecalciferol (Vitamin D3) [Vitamin D3 (125 MCG = 5,000 IU)] 375 mcg PO QAM 05/22/22 [History] Losartan Potassium 100 mg PO QAM 05/22/22 [History] hydroCHLOROthiazide 25 mg PO QAM 05/22/22 [History] DULoxetine HCL [Cymbalta] 30 mg PO BID 11/11/23 [History] Docusate [Colace] 300 mg PO DAILY 11/11/23 [History] Fluticasone/Umeclidin/Vilanter [Trelegy Ellipta 200-62.5-25] 1 puff INHALATION DAILY PRN 11/11/23 [History] Cyclobenzaprine [Flexeril] 5 mg PO TID #21 tablet 11/19/23 [Rx] HYDROcodone/APAP 10-325MG [[place] 10-325] 1 tab PO Q6HR PRN #28 tab 11/19/23 [Rx] Sennosides/Docusate Sodium [Senna Plus 8.6-50 mg Softgel] 1 each PO DAILY #20 capsule 11/19/23 [Rx] cefaDROXiL [Duricef] 500 mg PO Q12HR 5 Days #10 cap 11/19/23 [Rx] Follow up Appointment(s)/Referral(s): [facility], [NON-STAFF] - As Needed Valdemar Hendrickson DO [Doctor of Osteopathic Medicine] - 12/01/23 10:15 am Activity/Diet/Wound Care/Special Instructions: Spine Discharge and Recovery Instructions Date of Surgery: 11/15/2023 Diagnosis: L2-3 and L3-4 HNP with spondylosis and stenosis, severe; L4-5 adjacent segment disease; Bilateral lower extremity radiculopathy; Bilateral lower extremity weakness Procedure: revision [id number] decompression and fusion Medications: See medication list All medication refills should be obtained through your primary care doctor or your clinic spine surgeon. Please discuss prescription refills at your follow up appointment. Do not call the hospital for medication refills. Dressing: Leave your dressing in place for a total of 5 days post operatively. Then you may remove your dressing and leave open to air. Keep the area clean and if not able to keep area clean, then cover with sterile gauze and tape. Showering: You may shower 3 days after your procedure allowing soap and water to run over incision. Do not scrub. Do not soak. Blot dry. Follow up: Please confirm a follow up appointment with your surgeon 3 weeks post operatively. Please make an appointment to follow up with your PCP in 1-2 weeks after surgery for evaluation `3 phase, 3-week plan POST OP WEEKS 1-3 1. Lifting/carrying/pushing/pulling limited to less than 5 pounds. 2. Do not sit for longer than 15 minutes at one time. Get up and walk around. Prolonged sitting is NOT advised. If you lay down, see if you can tolerate laying down on you front (belly side) 3. Walk for periods of 15 minutes = 1 mile but no longer; do it multiple times times each day. 4. Ice your low back after activity. POST OP WEEKS 3-6 1. Lifting limited to less than 20 pounds. 2. Do not sit for longer than 30 minutes at a time. Frequently change positions. Use a sit-to stand workstation or take frequent breaks from sitting if you have returned to work. 3. Walk for 30 minutes each day. If possible, do these three or more times a day POST OP WEEKS 6+ At your 6-week appointment we will give you a physical therapy referral to focus on a core stabilization and strengthening program. You should also work on leg & buttock strengthening, hamstring & quadriceps stretching, and continue a low impact aerobic activity program such as swimming, walking, or riding a stationary bicycle. During the initial 6 weeks after your surgery, you are at the highest risk of re-injuring your spine. You should generally avoid BLTs (bending, lifting and twisting combination motions) and follow the above guidelines to reduce the chance of reinjury. You can anticipate post op appointments in our office at approximately 3 weeks and 6 weeks after your surgery. INCISION CARE: If your incision is not draining you do NOT need to cover it with a dressing. Keep your incision clean, dry and intact. In most cases, we apply skin glue, crista or sutures to the incision at the time of surgery. This will be like a crust or have the appearance of a scab and will fall off in time on its own. The stitches or cirsta need to be removed at 3 weeks post op appointment. You may begin to shower 3 days after surgery (this allows the glue to butt well). However, please avoid scrubbing the incision site or peeling off any of the skin glue. This will ensure optimal healing of your incision. Also, during this time avoid soaking the incision area in water - this includes swimming pools, hot tubs or baths. No ointments, lotions or oils on the incision until your surgeon allows. Leave crista, sutures or glue in place. Neurological dysfunction that comes on suddenly can also be a sign of a stroke. Below some common symptoms of a stroke are listed: B - balance difficulty such as sudden onset walking or leaning to one side - NEW E - eye problem such as sudden double vision or trouble seeing on one side - NEW F - Facial weakness or numbness on one side - NEW A - Arm or leg weakness or numbness on one side - NEW S - Slurred speech or difficulty with word finding - NEW T - Time is BRAIN! Call 911 as soon as you recognize these symptoms Diet: Consume a regular diet rich in vegetables and lean protein such as chicken or fish. You should consume in a ratio of approximately 20% fats|40% carbohydrates|40%protein. Vegetables, sweet potatoes, brown rice or quinoa are examples of good carbohydrates. Chips, white bread, cookies and sweets/sugar are examples of bad carbohydrates. Limit your bad carbs, go wild with good carbs. "Life's Simple 7" Guidelines as per [place] [employer] These will help you reclaim your life after surgery and painter helper in your recovery, keeping in mind your restrictions. (1) Get Active. Physical activity can help people lose weight, control high blood pressure and cholesterol, feel emotionally better, and sleep better. (2) Control Cholesterol. Avoid a diet high in saturated fat, trans fat, & cholesterol. Limit whole milk & cream, ice cream, butter, egg yolks, processed meats (like sausage and hot dogs), and fatty meats. Choose healthy foods that are low in saturated fat, trans fat and cholesterol which include: Fruits and vegetables, fiber rich grain products (like whole grain pasta and brown rice), lean meat such as chicken, fish, nuts, seeds, and legumes. (3) Eat Better. Eat small portions. Shop at the grocery with a list and do not stray from it. Tips for a healthy diet include: Limit sodium intake to less than 1500mg daily, avoid prepackaged, processed, and fast foods, choose a diet rich in fruits, vegetables, and whole grain, high fiber foods, and limit saturated & cholesterol in your diet. (4) Manage Blood Pressure. If you have high blood pressure, you should have a cuff at home so that you can check your blood pressure regularly. Be sure you have a good cuff. An arm one is generally better than a wrist one. Bring the cuff to a doctor's appointment to validate that the measurements that your cuff are taking are accurate. Take your blood pressure twice daily when you are sitting down and relaxing. Record the numbers in a log and bring this log with you to your doctors' appointments. (5) Lose Weight if your BMI is above 25. A healthy BMI is between 19-25. To calculate Your BMI, you may use a Standard BMI Calculator on the NIH BMI website: <www.nhlbi.nih.gov/guidelines/obesity/BMI/bmicalc.htm>. Weigh oneself daily. If you are overweight, set a goal to lose weight. A pound a week loss if needed is a good target. (6) Reduce Blood Sugar. Limit foods and liquids with "added sugars." (Added sugars include sucrose, fructose, glucose, maltose, dextrose, high fructose corn syrup, corn syrup, concentrated fruit juice and honey). (7) Stop Smoking. If you smoke, quitting smoking is one of the best things that you can do for your health. Smoking increases your risk of heart attack, stroke, and peripheral vascular disease, which is a build-up of plaque in your arteries. Please discard all the cigarettes and lighters in your house. Have a plan for what you will do when you have the urge to smoke. Direct and second- hand smoke shortens your life as well as the lives of your family, friends and others around you. For your health and the health of those around you, please co nsider quitting! Proper Bending Body Mechanics: Maintain a wide stance with one foot slightly in front of the other. Keep your back straight. Bend utilizing the strength in your hips and knees. Do not bend at the waist. Maintain the lifted object at your waist-level close to your body. Avoid lifting weight that causes immediately pain or pain anywhere in the body afterwards. Smoking/Nicotine If there was ever one thing that you could do to increase your overall health, decrease your risk of cardiovascular problems by about 39% the second you make the choice, it is to STOP SMOKING. Your body's most instant gratification is the second you stop smoking. We have all heard the studies, read the articles but it is true, smoking is extremely bad for your overall health, and moreover it is detrimental to your bone health. Nicotine, IN ANY FORM, kills bone cells, prevents your body from healing fractures, and significantly prolongs healing after surgery. In spine surgery specifically, it increases your risk of not healing your bones to create a fusion and increases your risk of having a revision surgery due to this up to 60%. I know it is hard. I know it feels impossible. But there are ways. Take control of your life. We are here to help you through it. And when you are ready, ask us and we can direct you to help if you desire. Use the START Plan to Quit Smoking (please visit the Helpguide.org website listed below for more information): S = Set a quit date. Choose a date within the next 2 weeks, so you have enough time to prepare without losing your motivation to quit. If you mainly smoke at work, quit on the weekend, so you have a few days to adjust to the change. T = Tell family, friends, and co-workers that you plan to quit. Let your friends and family in on your plan to quit smoking and tell them you need their support and encouragement to stop. Look for a quit brayan who wants to stop smoking as well. You can help each other get through the rough times. A = Anticipate and plan for the challenges you'll face while quitting. Most people who begin smoking again do so within the first 3 months. You can help yourself make it through by preparing ahead for common challenges, such as nicotine withdrawal and cigarette cravings. R = Remove cigarettes and other tobacco products from your home, car, and work. Throw away all your cigarettes (no emergency pack!), lighters, ashtrays, and matches. Wash your clothes and freshen up anything that smells like smoke. Shampoo your car, clean your drapes and carpet, and steam your furniture. T = Talk to your doctor about getting help to quit. Your doctor can prescribe medication to help with withdrawal and suggest other alternatives. If you can't see a doctor, you can get many products over the counter at your local pharmacy or grocery store, including the nicotine patch, nicotine lozenges, and nicotine gum. Resources for Quitting Smoking: <https://www.[place].gov/documents/[facility]/Quit_Tobacco_Resources_for_patients_313 480_7.pdf> Supplementation: Take recommended dosages of Vitamin D and Calcium to help fortify your bones and help them to heal. See your health maintenance packet for dosages and recommended levels. DVT/VTE prophylaxis: You will be given compression stockings from the hospital. Wear these daily for the first two weeks after surgery. You may take them off at night. You may be prescribed a medication to help thin your blood. Take this as directed. If you are not prescribed this medication, early and frequent ambulation has been shown to be the best prophylaxis to deep vein thrombosis and sequelae related to this event. Discharge Disposition: HOME WITH HOME HEALTH SERVICES
--- NOTE | 2023-11-19 15:01 | PN ---
PROGRESS NOTE SUBJECTIVE: This is a 63-year-old white female could be sent home today. She has had hip pain. I gave her a dose of Solu-Medrol yesterday. Potassium is 3.4, sodium is 141, and hemoglobin 10.9. OBJECTIVE: VITAL SIGNS: Stable. Afebrile. CARDIOVASCULAR: S1 and S2. LUNGS: Clear. GI: Soft. Vital signs reviewed. 98% on room air, blood pressure 123/77, temperature 98.3, pulse 92, and respiratory rate 18. Continue current treatment. Continue home medicines. Follow up in my office in a week or 2. Prognosis guarded. MMODL / IJN: [id number] /
--- NOTE | 2023-11-25 13:28 | PN ---
PROGRESS NOTE Morbid obesity. MMODL / IJN: [id number] /
== END 2023-11-19 14:38 | disposition home health service (06) | DRG 454 ==
LOC: 2ORMAIN 11-15 05:42 → 4SSUR 11-15 16:12
PROVIDERS: ADMIT Orthopaedic Surgery; ATTEND Orthopaedic Surgery
PROC: 0SG1071 Fusion of 2 or more Lumbar Vertebral Joints with Autologous Tissue Substitute, Posterior Approach, Posterior Column, Open Approach (ICD-10-PCS; 2023-11-15)
PROC: 0SG30AJ Fusion of Lumbosacral Joint with Interbody Fusion Device, Posterior Approach, Anterior Column, Open Approach (ICD-10-PCS; 2023-11-15)
PROC: 0SG3071 Fusion of Lumbosacral Joint with Autologous Tissue Substitute, Posterior Approach, Posterior Column, Open Approach (ICD-10-PCS; 2023-11-15)
PROC: 01NB0ZZ Release Lumbar Nerve, Open Approach (ICD-10-PCS; 2023-11-15)
PROC: 01NR0ZZ Release Sacral Nerve, Open Approach (ICD-10-PCS; 2023-11-15)
PROC: 0ST20ZZ Resection of Lumbar Vertebral Disc, Open Approach (ICD-10-PCS; 2023-11-15)
PROC: 0SP30AZ Removal of Interbody Fusion Device from Lumbosacral Joint, Open Approach (ICD-10-PCS; 2023-11-15)
PROC: 0QH304Z Insertion of Internal Fixation Device into Left Pelvic Bone, Open Approach (ICD-10-PCS; 2023-11-15)
PROC: 0QH204Z Insertion of Internal Fixation Device into Right Pelvic Bone, Open Approach (ICD-10-PCS; 2023-11-15)
PROC: 8E0WXBZ Computer Assisted Procedure of Trunk Region (ICD-10-PCS; 2023-11-15)
PROC: 0SG10AJ Fusion of 2 or more Lumbar Vertebral Joints with Interbody Fusion Device, Posterior Approach, Anterior Column, Open Approach (ICD-10-PCS; principal; 2023-11-15 07:30)
DX: M47.26 Other spondylosis with radiculopathy, lumbar region (principal); Z68.42 Body mass index [BMI] 45.0-49.9, adult; E66.01 Morbid (severe) obesity due to excess calories; M70.72 Other bursitis of hip, left hip; I10 Essential (primary) hypertension; E78.5 Hyperlipidemia, unspecified; M51.26 Other intervertebral disc displacement, lumbar region; M48.062 Spinal stenosis, lumbar region with neurogenic claudication; G47.8 Other sleep disorders; M51.16 Intervertebral disc disorders with radiculopathy, lumbar region; M53.86 Other specified dorsopathies, lumbar region; M25.78 Osteophyte, vertebrae; K21.9 Gastro-esophageal reflux disease without esophagitis; Z87.891 Personal history of nicotine dependence; Z79.899 Other long term (current) drug therapy; Z79.82 Long term (current) use of aspirin; Z79.1 Long term (current) use of non-steroidal anti-inflammatories (NSAID); Z98.1 Arthrodesis status
CPT/HCPCS: 72100; 72131; 80048; 85025; 86891; 94640; 94760

== ENCOUNTER → 2023-09-17 | Outpatient (CLI) | payer MEDICARE ==
--- NOTE | 2023-09-18 10:48 | CT ---
EXAMINATION TYPE: CT lumbar spine wo con DATE OF EXAM: 09/17/2023 COMPARISON: 02/05/2022 HISTORY: spinal stenosis lumbar region CT DLP: 1967.7 mGycm CONTRAST: None TECHNIQUE: CT of the lumbar spine is performed on a spiral scan at 3 mm thick sections. Reconstructed images are performed in the coronal and sagittal planes. FINDINGS: T10-11: No focal disc herniation or significant disc bulge is evident. No spinal canal stenosis or neural foraminal stenosis is present. There is loss of disc height and minimal vacuum disc phenomenon present. T11-12: No focal disc herniation or significant disc bulge is evident. No spinal canal stenosis or neural foraminal stenosis is present. There is loss of disc height to this level. T12-L1: There is a hyperdense protrusion from the endplate into the left paracentral to left lateral region with moderate anterior thecal sac compression. No cord contact is evident. Series 3 image 29. Moderate left foraminal stenosis is present. Correlate with left radicular symptoms. L1-L2: No focal disc herniation or significant disc bulge is evident. No spinal canal stenosis or n eural foraminal stenosis is present L2-L3: There is loss of disc height is level. Vacuum disc phenomenon is present. Mild residual disc b ulge has anterior thecal sac flattening. No AP spinal canal stenosis present. Moderate bilateral fora petr narrowing is present. L3-L4: Appears to be some air which may be related to disc material or intervention in the spinal can al posterior to the L3 level. Facet hypertrophy is present at this level. Ligamentum flavum laxity is present with some mild canal narrowing. Some residual disc bulge may have anterior thecal sac flatte alejandro. Moderate to severe bilateral foraminal stenosis is present L4-L5: Postsurgical changes are present L4-5. Some beam hardening artifact is present. Disc level lucero ears preserved. No spinal canal stenosis or neural foraminal stenosis evident L5-S1: Beam hardening artifact is present limiting evaluation to this level. Obvious spinal canal nasir nosis is not evident. There is limitation however. Vertebral alignment appears normal. IMPRESSION: 1. Left paracentral disc bulge and/or endplate spurring T12-L1. Foraminal stenosis is present. Correl ate with left radicular symptoms. 2. Degenerative disc changes with vacuum disc phenomenon present at T10-11, T12-L1, L2-3, L3-4. 3. Moderate to severe bilateral foraminal stenosis L3-4 and more moderate foraminal narrowing L2-3
== END | disposition home or self-care (01) ==
LOC: RADCTMAIN 16:22
PROVIDERS: ATTEND Orthopaedic Surgery
DX: M99.73 Connective tissue and disc stenosis of intervertebral foramina of lumbar region (principal); M51.35 Other intervertebral disc degeneration, thoracolumbar region; M48.061 Spinal stenosis, lumbar region without neurogenic claudication
CPT/HCPCS: 72131

== ENCOUNTER → 2023-11-11 | Outpatient (CLI) | payer MEDICARE ==
--- NOTE | 2023-11-11 15:13 | XR ---
EXAMINATION TYPE: XR chest 2V DATE OF EXAM: 11/11/2023 2:52 PM CLINICAL INDICATION:Female, 63 years old with history of PRE SURG TESTING; [facility] COMPARISON: None TECHNIQUE: XR chest 2V Frontal and lateral views of the chest. FINDINGS: Lungs/Pleura: There is no evidence of pleural effusion, focal consolidation, or pneumothorax. Pulmonary vascularity: Unremarkable. Heart/mediastinum: Cardiomediastinal silhouette is unremarkable. Musculoskeletal: No acute osseous pathology. IMPRESSION: No acute cardiopulmonary disease/process.
[2023-11-11 18:21] LABS: HCT 40.6 % (37.2-46.3); HGB 14.1 g/dL (12.0-15.0); MCH 32.2 pg (27.0-32.0); MCHC 34.7 g/dL (32.0-37.0); MCV 92.7 FL (80.0-97.0); Mean Platelet Volume 11.5 FL (9.5-12.2); NRBC Per 100 WBC 0 X 10*3/uL (0.00-0.01); Platelet Count 215 X 10*3/uL (140-440); RBC 4.38 X 10*6/uL (4.10-5.20); RDW 13.7 % (11.5-14.5); WBC 8.58 X 10*3/uL (4.50-10.00)
[2023-11-11 18:31] LABS: Prothrombin Time 10.8 sec (9.9-11.9)
[2023-11-11 19:29] LABS: ALT 27 U/L (8-44); AST 23 U/L (13-35); Albumin 4.3 g/dL (3.8-4.9); Albumin/Globulin Ratio 1.95 Ratio (1.60-3.17); Alkaline Phosphatase 89 U/L (41-126); BUN/Creat Ratio 26.29 Ratio (12.00-20.00); Blood Urea Nitrogen 18.4 mg/dL (9.0-27.0); Calcium 9.6 mg/dL (8.7-10.3); Carbon Dioxide 25.1 mmol/L (21.6-31.8); Chloride 105 mmol/L (96-109); Globulin 2.2 g/dL (1.6-3.3); Glucose 103 mg/dL (70-110); Sodium 142 mmol/L (135-145); Total Bilirubin 0.2 mg/dL (0.3-1.2); Total Protein 6.5 g/dL (6.2-8.2)
== END | disposition home or self-care (01) ==
LOC: LABPAT 14:38
PROVIDERS: ATTEND Orthopaedic Surgery
DX: Z01.818 Encounter for other preprocedural examination (principal); J45.909 Unspecified asthma, uncomplicated; M51.26 Other intervertebral disc displacement, lumbar region; M54.16 Radiculopathy, lumbar region; Z22.322 Carrier or suspected carrier of Methicillin resistant Staphylococcus aureus
CPT/HCPCS: 36415; 71046; 80053; 85027; 85610; 86850; 86900; 86901; 87070

== ENCOUNTER 2024-03-19 10:39 | Emergency (ER) | payer MEDICARE ==
[2024-03-19 10:48] VITALS: RESP 16
[2024-03-19] MEDS: KETOROLAC 15 MG/ML 1 ML VIAL IVP STA (11:08)
[2024-03-19] MEDS: ONDANSETRON 4 MG/2 ML VIAL IVP STA (11:08)
[2024-03-19] MEDS: HYDROmorphone 0.5 MG/0.5 ML SYRINGE IVP STA (11:09)
[2024-03-19] MEDS: SODIUM CHLORIDE 0.9% 1,000 ML IV STA (11:11)
[2024-03-19 11:27] LABS: Basophils % (A) 0 %; Eosinophils % (A) 0 %; HCT 39.9 % (34.0-46.0); HGB 13.5 gm/dL (11.4-16.0); Lymphocytes # (A) 1.1 k/uL (1.0-4.8); Lymphocytes % (A) 16 %; MCH 27.6 pg (25.0-35.0); MCHC 33.9 g/dL (31.0-37.0); MCV 81.5 fL (80.0-100.0); Mean Platelet Volume 8.5; Monocytes # (A) 0.2 k/uL (0-1.0); Monocytes % (A) 3 %; Neutrophils # (A) 5.5 k/uL (1.3-7.7); Neutrophils % (A) 79 %; Platelet Count 259 k/uL (150-450); RBC 4.89 m/uL (3.80-5.40); RDW 14.7 % (11.5-15.5)
--- NOTE | 2024-03-19 11:43 | ED ---
Abdominal Pain HPI - General Chief Complaint: Abdominal Pain Stated Complaint: Possible kidney stone, lower back pain Time Seen by Provider: 03/19/24 10:52 Source: patient, RN notes reviewed Mode of arrival: ambulatory Limitations: no limitations - History of Present Illness Initial Comments: 63-year-old female presents emergency department complaint of right flank pain. Patient states that she had surgery earlier this year but it did not send. She states she had new screws, disks in pain of her hips. Patient states that she always has pain but this is different type pain she states when the right side wraps around. She does admit to nausea vomiting states that she has been taking [place] with no relief of symptoms. She has a bowel, bladder and cons retention. She is concerned that this is related to a kidney stone. - Related Data Home Medications Medication Instructions Recorded Confirmed Aspirin EC [Ecotrin] 81 mg PO QAM 03/26/14 11/15/23 HYDROcodone/APAP 7.5-325MG [[place] 1 tab PO Q6H PRN 12/03/14 11/15/23 7.5-325] Pregabalin [Lyrica] 150 mg PO BID 12/03/14 11/15/23 Esomeprazole Magnesium [NexIUM] 20 mg PO BID 01/17/15 11/15/23 Meloxicam 15 mg PO QAM 04/13/17 11/15/23 Atorvastatin [Lipitor] 10 mg PO QAM 05/22/22 11/15/23 Cholecalciferol (Vitamin D3) 375 mcg PO QAM 05/22/22 11/15/23 [Vitamin D3 (125 MCG = 5,000 IU)] Losartan Potassium 100 mg PO QAM 05/22/22 11/15/23 hydroCHLOROthiazide 25 mg PO QAM 05/22/22 11/15/23 DULoxetine HCL [Cymbalta] 30 mg PO BID 11/11/23 11/15/23 Docusate [Colace] 300 mg PO DAILY 11/11/23 11/15/23 Fluticasone/Umeclidin/Vilanter 1 puff INHALATION DAILY PRN 11/11/23 11/15/23 [Trelegy Ellipta 200-62.5-25] Previous Rx's Medication Instructions Recorded Cyclobenzaprine [Flexeril] 5 mg PO TID #21 tablet 11/19/23 HYDROcodone/APAP 10-325MG [[place] 1 tab PO Q6HR PRN #28 tab 11/19/23 10-325] Sennosides/Docusate Sodium [Senna 1 each PO DAILY #20 capsule 11/19/23 Plus 8.6-50 mg Softgel] cefaDROXiL [Duricef] 500 mg PO Q12HR 5 Days #10 cap 11/19/23 methocarbamoL [Robaxin] 500 mg PO TID PRN #15 tab 03/19/24 Allergies Allergy/AdvReac Type Severity Reaction Status Date / Time No Known Allergies Allergy Verified 03/19/24 10:48 Review of Systems ROS Statement: Those systems with pertinent positive or pertinent negative responses have been documented in the HPI. ROS Other: All systems not noted in ROS Statement are negative. 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 History of Any Multi-Drug Resistant Organisms: None Reported Past Surgical History: Back Surgery, Cholecystectomy, Hernia Repair, Hysterectomy Additional Past Surgical History / Comment(s): LOWER BACK FUSION, EGD, COLONOSCOPY. STEROID SHOT 2009?, HIATAL HERNIA REPAIR, PAIN CLINIC PROCEDURES Past Anesthesia/Blood Transfusion Reactions: No Reported Reaction Additional Past Anesthesia/Blood Transfusion Reaction / Comment(s): Pt has never received blood. Past Psychological History: Anxiety, Depression Smoking Status: Former smoker - Past Family History Mother Family Medical History: Musculoskeletal Disorder, Neurologic Disorder Additional Family Medical History / Comment(s): PARKINSONS Father Family Medical History: Hypertension General Exam Limitations: no limitations General appearance: alert, in no apparent distress Head exam: Present: atraumatic, normocephalic, normal inspection Eye exam: Present: normal appearance, PERRL, EOMI. Absent: scleral icterus, conjunctival injection, periorbital swelling ENT exam: Present: normal exam, mucous membranes moist Neck exam: Present: normal inspection. Absent: tenderness, meningismus, lymphadenopathy Respiratory exam: Present: normal lung sounds bilaterally. Absent: respiratory distress, wheezes, rales, rhonchi, stridor Cardiovascular Exam: Present: regular rate, normal rhythm, normal heart sounds. Absent: systolic murmur, diastolic murmur, rubs, gallop, clicks GI/Abdominal exam: Present: soft, normal bowel sounds. Absent: distended, tenderness, guarding, rebound, rigid Back exam: Present: full ROM, tenderness, CVA tenderness (R). Absent: CVA tenderness (L) Neurological exam: Present: alert Course Vital Signs 03/19/24 03/19/24 10:46 12:05 Temperature 98.4 F Pulse Rate 100 Respiratory 16 16 Rate Blood Pressure 139/90 121/73 O2 Sat by Pulse 100 Oximetry Medical Decision Making - Medical Decision Making Was pt. sent in by a medical professional or institution (, PA, CLOTH SHRINKING MACHINE OPERATOR, urgent care, hospital, or usp...) When possible be specific @ -No Did you speak to anyone other than the patient for history (EMS, parent, family, police, friend...)? What history was obtained from this source @ -No Did you review nursing and triage notes (agree or disagree)? Why? @ -I reviewed and agree with nursing and triage notes Were old charts reviewed (outside hosp., previous admission, EMS record, old EKG, old radiological studies, urgent care reports/EKG's, usp records)? Report findings @ -No old charts were reviewed Differential Diagnosis (chest pain, altered mental status, abdominal pain women, abdominal pain men, vaginal bleeding, weakness, fever, dyspnea, syncope, headache, dizziness, GI bleed, back pain, seizure, CVA, palpatations, mental health, musculoskeletal)? @ -Differential Back Pain: Strain, zoster, cauda equina syndrome, epidural abscess, vertebral os teomyelitis, discitis, fracture, subluxation, disc herniation, DJD, spinal stenosis, dissection, AAA, pancreatitis, peptic ulcer disease, pyelonephritis, kidney stone, this is not meant to be an all-inclusive list. EKG interpreted by me (3pts min.). @ -None X-rays interpreted by me (1pt min.). @ -None done CT interpreted by me CT abdomen pelvis showing stable hardware no acute intra- abdominal process. None done U/S interpreted by me (1pt. min.). @ -None done What testing was considered but not performed or refused? (CT, X-rays, U/S, labs)? Why? @ -None What meds were considered but not given or refused? Why? @ -None Did you discuss the management of the patient with other professionals (pr ofessionals i.e. , PA, CLOTH SHRINKING MACHINE OPERATOR, lab, RT, psych nurse, social security assessor, community health worker, teacher, financial administration officer, immigration case manager)? Give summary @ -No Was smoking cessation discussed for >3mins.? @ -No Was critical care preformed (if so, how long)? @ -No Were there social determinants of health that impacted care today? How? (Homelessness, low income, unemployed, alcoholism, drug addiction, transportation, low edu. Level, literacy, decrease access to med. care, usp, rehab)? @ -No Was there de-escalation of care discussed even if they declined (Discuss DNR or withdrawal of care, Hospice)? DNR status @ -No What co-morbidities impacted this encounter? (DM, HTN, Smoking, COPD, CAD, Cancer, CVA, ARF, Chemo, Hep., AIDS, mental health diagnosis, sleep apnea, morbid obesity)? @ -None Was patient admitted / discharged? Hospital course, mention meds given and route, prescriptions, significant lab abnormalities, going to OR and other pertinent info. @ -Discharge patient felt greatly improved imaging laboratory studies unremarkable. Patient discharged in stable condition return par discussed. Undiagnosed new problem with uncertain prognosis? @ -No Drug Therapy requiring intensive monitoring for toxicity (Heparin, Nitro, Insulin, Cardizem)? @ -No Were any procedures done? @ -No Diagnosis/symptom? @ -Back pain Acute, or Chronic, or Acute on Chronic? @ -Acute Uncomplicated (without systemic symptoms) or Complicated (systemic symptoms)? @ -Uncomplicated Side effects of treatment? @ -No Exacerbation, Progression, or Severe Exacerbation? @ -No Poses a threat to life or bodily function? How? (Chest pain, [place], ME, pneumonia, PE, COPD, DKA, ARF, appy, cholecystitis, CVA, Diverticulitis, Homicidal, Suicid al, threat to staff... and all critical care pts) @ -No - Lab Data Result diagrams: 03/19/24 11:12 03/19/24 11:12 Lab Results 03/19/24 03/19/24 03/19/24 Range/Units 11:12 11:12 13:04 WBC 7.0 (3.8-10.6) k/uL RBC 4.89 (3.80-5.40) m/uL Hgb 13.5 (11.4-16.0) gm/dL Hct 39.9 (34.0-46.0) % MCV 81.5 (80.0-100.0) fL MCH 27.6 (25.0-35.0) pg MCHC 33.9 (31.0-37.0) g/dL RDW 14.7 (11.5-15.5) % Plt Count 259 (150-450) k/uL MPV 8.5 Neutrophils % 79 % Lymphocytes % 16 % Monocytes % 3 % Eosinophils % 0 % Basophils % 0 % Neutrophils # 5.5 (1.3-7.7) k/uL Lymphocytes # 1.1 (1.0-4.8) k/uL Monocytes # 0.2 (0-1.0) k/uL Eosinophils # 0.0 (0-0.7) k/uL Basophils # 0.0 (0-0.2) k/uL Sodium 141 (137-145) mmol/L Potassium 3.8 (3.5-5.1) mmol/L Chloride 107 (98-107) mmol/L Carbon Dioxide 21 L (22-30) mmol/L Anion Gap 13 mmol/L BUN 14 (7-17) mg/dL Creatinine 0.67 (0.52-1.04) mg/dL Est GFR (CKD-EPI)AfAm >90 (>60 ml/min/1.73 sqM) Est GFR (CKD-EPI)NonAf >90 (>60 ml/min/1.73 sqM) Glucose 141 H (74-99) mg/dL Calcium 10.5 H (8.4-10.2) mg/dL Total Bilirubin 0.7 (0.2-1.3) mg/dL AST 26 (14-36) U/L ALT 19 (4-34) U/L Alkaline Phosphatase 88 (38-126) U/L Total Protein 7.8 (6.3-8.2) g/dL Albumin 4.9 (3.5-5.0) g/dL Urine Color Yellow Urine Appearance Cloudy H (Clear) Urine pH 6.0 (5.0-8.0) Ur Specific [place] 1.036 H (1.001-1.035) Urine Protein 1+ H (Negative) Urine Glucose (UA) Negative (Negative) Urine Ketones Trace H (Negative) Urine Blood Negative (Negative) Urine Nitrite Negative (Negative) Urine Bilirubin 1+ H (Negative) Urine Urobilinogen 4.0 (<2.0) mg/dL Ur Leukocyte Esterase Small H (Negative) Urine RBC 3 (0-5) /hpf Ur Squamous Epith Cells 9 H (0-4) /hpf Urine Mucus Moderate H (None) /hpf Disposition Clinical Impression: Back pain Disposition: HOME SELF-CARE Condition: Stable Instructions (If sedation given, give patient instructions): Back Pain (ED) Additional Instructions: Please return to the Emergency Department if symptoms worsen or any other concerns. Prescriptions: methocarbamoL [Robaxin] 500 mg PO TID PRN #15 tab PRN Reason: muscle spasms Is patient prescribed a controlled substance at d/c from ED?: No Referrals: Chris Mann MD [Primary Care Provider] - 1-2 days Time of Disposition: 13:45
[2024-03-19 11:46] LABS: ALT 19 U/L (4-34); AST 26 U/L (14-36); African American GFR (CKD) >90 (>60 ml/min/1.73 sqM); Albumin 4.9 g/dL (3.5-5.0); Alkaline Phosphatase 88 U/L (38-126); Anion Gap 13 mmol/L; Blood Urea Nitrogen 14 mg/dL (7-17); Calcium 10.5 mg/dL (8.4-10.2); Carbon Dioxide 21 mmol/L (22-30); Chloride 107 mmol/L (98-107); Glucose 141 mg/dL (74-99); Non-African American GFR(CKD) >90 (>60 ml/min/1.73 sqM); Potassium 3.8 mmol/L (3.5-5.1); Sodium 141 mmol/L (137-145); Total Bilirubin 0.7 mg/dL (0.2-1.3); Total Protein 7.8 g/dL (6.3-8.2)
--- NOTE | 2024-03-19 11:54 | CT ---
EXAMINATION TYPE: CT abdomen pelvis wo con DATE OF EXAM: 03/19/2024 11:26 AM COMPARISON: None CLINICAL INDICATION: Female, 63 years old with history of right flank pain, hematuria, back surgery; right flank pain, hematuria, back surgery TECHNIQUE: Axial CT abdomen pelvis wo con;Sagittal and coronal reformats were created on a separate workstation. Contrast used: mL of , (none if empty) Oral contrast used: without Oral Contrast (none if empty) CT DLP: 1368 mGycm, Automated exposure control for dose reduction was used. FINDINGS: LOWER CHEST: Unremarkable ABDOMEN LIVER: Diffusely hypoattenuating parenchyma. Simple appearing hepatic cysts. GALLBLADDER AND BILE DUCTS: Gallbladder is surgically absent. PANCREAS: Unremarkable. SPLEEN: Unremarkable. ADRENAL GLANDS: Unremarkable. KIDNEYS AND URETERS: No evidence of hydronephrosis or renal calculus. The ureters are unremarkable. PELVIS BLADDER: No evidence for wall thickening or mass given limitations of exam. REPRODUCTIVE: The uterus is surgically absent. ABDOMEN & PELVIS STOMACH AND BOWEL: No evidence of bowel obstruction. Appendix is not definitively visualized. There i s no evidence for appendicitis or acute process in the right lower quadrant. PERITONEUM/RETROPERITONEUM: No evidence of pneumoperitoneum or free fluid. VASCULATURE: Moderate atherosclerotic calcifications are present throughout the abdominal aorta and i ts branches. No evidence of aortic aneurysm. MUSCULOSKELETAL: No acute osseous abnormalities, fixation hardware in the spine with hardware intact. LYMPH NODES: No gross evidence for lymphadenopathy. SOFT TISSUE/ABDOMINAL WALL: Fat-containing umbilical hernia. IMPRESSION: 1. No evidence for acute abdominal process. No obstructive uropathy or renal calculus. 2. The appendix is not visualized, no secondary signs of appendicitis. The appendix may be surgicall y absent. 3. Hepatic steatosis. 4. Fixation hardware in the spine appears intact. [facility], , 03/19/2024 11:51 AM
[2024-03-19 13:17] LABS: Appearance,Urine Cloudy (Clear); Bilirubin,Urine 1+ (Negative); Blood,Urine Negative (Negative); Color,Urine Yellow; Glucose,Urine (UA) Negative (Negative); Ketones,Urine Trace (Negative); Leukocyte Esterase,Urine Small (Negative); Mucus,Urine Moderate /hpf; Nitrite,Urine Negative (Negative); Protein,Urine 1+ (Negative); RBC,Urine 3 /hpf (0-5); Specific Gravity,Urine 1.036 (1.001-1.035); Squamous Epithelial Cell,Urine 9 /hpf (0-4)
[2024-03-19 14:15] VITALS: BP 130/89; PULSE 98; TEMP 98.1
== END 2024-03-19 14:08 | disposition home or self-care (01) ==
LOC: EC 10:39
DX: M54.9 Dorsalgia, unspecified (principal); Z87.891 Personal history of nicotine dependence
CPT/HCPCS: 36415; 80053; 85025; 81001; 74176; 99284; 96374; 96375; 96376; 96361; J2405; J1885; J1171

== ENCOUNTER 2024-03-20 16:36 | Observation (INO) | payer MEDICARE ==
--- NOTE | 2024-03-20 17:33 | ED ---
General Adult HPI - General Chief complaint: GI Bleed Stated complaint: blood in urine Time Seen by Provider: 03/20/24 17:08 Source: patient Mode of arrival: ambulatory Limitations: no limitations - History of Present Illness Initial comments: This patient is a 63-year-old woman who complains of having right low back pain going back approximately 1 week now. The patient has also had some accompanying nausea and vomiting. She states that she was seen here for the same pain yesterday but they could not find out what was causing it. She did have some relief with the [place] that she was giving. She states that that will give her a couple of hours relief and the pain recurs. The patient describes the pain as aching and constant it does have intermittent stabbing pains that last for few seconds to a minute. She has not noted change in urination. She states that she had been constipated but did have a small bowel movement yesterday Onset/Timin -: week(s) Location: back Quality: stabbing, aching Consistency: constant Improves with: medication Worsens with: none Associated Symptoms: nausea/vomiting, other (Constipation) Treatments Prior to Arrival: other ([place]) - Related Data Home Medications Medication Instructions Recorded Confirmed Aspirin EC [Ecotrin Low Dose] 81 mg PO DAILY 03/26/14 03/21/24 HYDROcodone/APAP 7.5-325MG [[place] 1 tab PO Q6H PRN 12/03/14 03/21/24 7.5-325] Esomeprazole Magnesium [NexIUM] 20 mg PO BID 01/17/15 03/21/24 Atorvastatin [Lipitor] 10 mg PO DAILY 05/22/22 03/21/24 Cholecalciferol (Vitamin D3) 125 mcg PO DAILY 05/22/22 03/21/24 [Vitamin D3 (125 MCG = 5,000 IU)] Losartan Potassium 100 mg PO DAILY 05/22/22 03/21/24 hydroCHLOROthiazide 25 mg PO DAILY 05/22/22 03/21/24 DULoxetine HCL [Cymbalta] 30 mg PO BID 11/11/23 03/21/24 Docusate [Colace] 100 mg PO DAILY 11/11/23 03/21/24 Pregabalin [Lyrica] 150 mg PO BID 03/21/24 03/21/24 Sennosides/Docusate Sodium [Senna 1 cap PO DAILY 03/21/24 03/21/24 Plus 8.6-50 mg Softgel] Previous Rx's Medication Instructions Recorded Cefdinir [Omnicef] 300 mg PO BID 7 Days #14 cap 03/23/24 metroNIDAZOLE [Flagyl] 500 mg PO TID 7 Days #21 tab 03/23/24 Allergies Allergy/AdvReac Type Severity Reaction Status Date / Time No Known Allergies Allergy Verified 03/21/24 10:38 Review of Systems ROS Statement: Those systems with pertinent positive or pertinent negative responses have been documented in the HPI. ROS Other: All systems not noted in ROS Statement are negative. Constitutional: Denies: fever, chills, weakness Respiratory: Denies: cough, dyspnea Cardiovascular: Denies: chest pain, palpitations, orthopnea, edema, syncope Gastrointestinal: Reports: abdominal pain, nausea, vomiting, constipation. 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 History of Any Multi-Drug Resistant Organisms: None Reported Past Surgical History: Back Surgery, Cholecystectomy, Hernia Repair, Hysterectomy Additional Past Surgical History / Comment(s): LOWER BACK FUSION, EGD, COLONOSCOPY. STEROID SHOT 2009?, HIATAL HERNIA REPAIR, PAIN CLINIC PROCEDURES Past Anesthesia/Blood Transfusion Reactions: No Reported Reaction Additional Past Anesthesia/Blood Transfusion Reaction / Comment(s): Pt has never received blood. Past Psychological History: Anxiety, Depression Smoking Status: Former smoker Past Alcohol Use History: Occasional Past Drug Use History: Marijuana - Past Family History Mother Family Medical History: Musculoskeletal Disorder, Neurologic Disorder Additional Family Medical History / Comment(s): PARKINSONS Father Family Medical History: Hypertension General Exam Limitations: no limitations General appearance: alert, in no apparent distress Head exam: Present: atraumatic, normocephalic Eye exam: Present: normal appearance. Absent: scleral icterus, conjunctival injection ENT exam: Present: normal oropharynx Neck exam: Present: normal inspection Respiratory exam: Present: normal lung sounds bilaterally. Absent: respiratory distress, wheezes, rales, rhonchi, stridor, accessory muscle use Cardiovascular Exam: Present: regular rate, normal rhythm, normal heart sounds. Absent: systolic murmur, diastolic murmur, rubs, gallop GI/Abdominal exam: Present: soft. Absent: distended, tenderness, guarding, re bound, rigid, mass Extremities exam: Present: normal inspection, normal capillary refill. Absent: pedal edema, calf tenderness Back exam: Present: normal inspection. Absent: CVA tenderness (R), CVA tenderness (L) Neurological exam: Present: alert Skin exam: Present: warm, dry, intact, normal color. Absent: rash Course Vital Signs 03/20/24 03/20/24 03/20/24 16:37 17:30 18:56 Temperature 98.2 F Pulse Rate 91 76 85 Respiratory 18 18 16 Rate Blood Pressure 126/76 137/91 138/100 O2 Sat by Pulse 99 98 97 Oximetry 03/20/24 03/21/24 21:43 01:00 Temperature Pulse Rate 77 70 Respiratory 18 16 Rate Blood Pressure 116/81 103/60 O2 Sat by Pulse 97 92 L Oximetry Medical Decision Making - Medical Decision Making Was pt. sent in by a medical professional or institution (, PA, UTILITY OPERATOR YARN, urgent care, hospital, or halfway...) When possible be specific @ -[No] Did you speak to anyone other than the patient for history (EMS, parent, family, police, friend...)? What history was obtained from this source @ -[No] Did you review nursing and triage notes (agree or disagree)? Why? @ -[I reviewed and agree with nursing and triage notes] Were old charts reviewed (outside hosp., previous admission, EMS record, old EKG, old radiological studies, urgent care reports/EKG's, halfway records)? Report findings @ -[No old charts were reviewed] Differential Diagnosis (chest pain, altered mental status, abdominal pain women, abdominal pain men, vaginal bleeding, weakness, fever, dyspnea, syncope, headache, dizziness, GI bleed, back pain, seizure, CVA, palpatations, mental health, musculoskeletal)? @ -[Differential Back Pain: Strain, zoster, cauda equina syndrome, epidural abscess, vertebral osteomyelitis, discitis, fracture, subluxation, disc herniation, DJD, spinal stenosis, dissection, AAA, pancreatitis, peptic ulcer disease, pyelonephritis, kidney stone, this is not meant to be an all-inclusive list. EKG interpreted by me (3pts min.). @ -[As above] X-rays interpreted by me (1pt min.). @ -[None done] CT interpreted by me (1pt min.). @ -[None done] U/S interpreted by me (1pt. min.). @ -[None done] What testing was considered but not performed or refused? (CT, X-rays, U/S, labs)? Why? @ -[None] What meds were considered but not given or refused? Why? @ -[None] Did you discuss the management of the patient with other professionals (professionals i.e. , PA, UTILITY OPERATOR YARN, lab, RT, psych nurse, 7th grade social studies teacher, parts expediter, teacher, juvenile correctional officer, case packer)? Give summary @ -[Case discussed with admitting physician and treatment recommendations are incorporated Was smoking cessation discussed for >3mins.? @ -[No] Was critical care preformed (if so, how long)? @ -[No] Were there social determinants of health that impacted care today? How? (Homelessness, low income, unemployed, alcoholism, drug addiction, transportatio n, low edu. Level, literacy, decrease access to med. care, fdc, rehab)? @ -[No] Was there de-escalation of care discussed even if they declined (Discuss DNR or withdrawal of care, Hospice)? DNR status @ -[No] What co-morbidities impacted this encounter? (DM, HTN, Smoking, COPD, CAD, Cancer, CVA, ARF, Chemo, Hep., AIDS, mental health diagnosis, sleep apnea, morbid obesity)? @ -[None] Was patient admitted / discharged? Hospital course, mention meds given and route, prescriptions, significant lab abnormalities, going to OR and other pertinent info. @ -[Patient is a 63-year-old woman with back and flank pain. This is a repeat visit for same complaint and the patient also having some gastrointestinal complaints this time. The patient sent for CT that radiology interprets as showing possible colitis. Patient will be admitted to have further symptom management Undiagnosed new problem with uncertain prognosis? @ -[No] Drug Therapy requiring intensive monitoring for toxicity (Heparin, Nitro, Insulin, Cardizem)? @ -[No] Were any procedures done? @ -[No] Diagnosis/symptom? @ -[Back pain Colitis Acute, or Chronic, or Acute on Chronic? @ -[Acute Uncomplicated (without systemic symptoms) or Complicated (systemic symptoms)? @ -[d uncomplicated Side effects of treatment? @ -[No] Exacerbation, Progression, or Severe Exacerbation? @ -[No] Poses a threat to life or bodily function? How? (Chest pain, [place], [place], pneumonia, PE, COPD, DKA, ARF, appy, cholecystitis, CVA, Diverticulitis, Homicidal, Suicidal, threat to staff... and all critical care pts) @ -[No] - Lab Data Result diagrams: 03/21/24 18:39 03/21/24 20:14 Lab Results 03/20/24 03/20/24 03/20/24 Range/Units 19:00 19:06 19:06 WBC 6.2 (3.8-10.6) k/uL RBC 4.22 (3.80-5.40) m/uL Hgb 11.7 (11.4-16.0) gm/dL Hct 35.4 (34.0-46.0) % MCV 83.9 (80.0-100.0) fL MCH 27.7 (25.0-35.0) pg MCHC 33.1 (31.0-37.0) g/dL RDW 14.2 (11.5-15.5) % Plt Count 193 (150-450) k/uL MPV 8.1 Neutrophils % 72 % Lymphocytes % 21 % Monocytes % 5 % Eosinophils % 0 % Basophils % 0 % Neutrophils # 4.5 (1.3-7.7) k/uL Lymphocytes # 1.3 (1.0-4.8) k/uL Monocytes # 0.3 (0-1.0) k/uL Eosinophils # 0.0 (0-0.7) k/uL Basophils # 0.0 (0-0.2) k/uL PT 11.3 (10.0-12.5) sec INR 1.0 (<1.2) APTT 22.8 (22.0-30.0) sec Sodium (137-145) mmol/L Potassium (3.5-5.1) mmol/L Chloride (98-107) mmol/L Carbon Dioxide (22-30) mmol/L Anion Gap mmol/L BUN (7-17) mg/dL Creatinine (0.52-1.04) mg/dL Est GFR (CKD-EPI)AfAm (>60 ml/min/1.73 sqM) Est GFR (CKD-EPI)NonAf (>60 ml/min/1.73 sqM) Glucose (74-99) mg/dL Plasma Lactic Acid Cas[place] (0.7-2.0) mmol/L Calcium (8.4-10.2) mg/dL Total Bilirubin (0.2-1.3) mg/dL AST (14-36) U/L ALT (4-34) U/L Alkaline Phosphatase (38-126) U/L Troponin I (0.000-0.034) ng/mL Total Protein (6.3-8.2) g/dL Albumin (3.5-5.0) g/dL Blood Type A Positive Blood Type Recheck A Pos Bld Type Recheck Status No Antibody Screen NEGATIVE Spec Expiration Date 03/23/2024 - 229903/20/24 03/20/24 03/20/24 Range/Units 19:06 19:06 19:20 WBC (3.8-10.6) k/uL RBC (3.80-5.40) m/uL Hgb (11.4-16.0) gm/dL Hct (34.0-46.0) % MCV (80.0-100.0) fL MCH (25.0-35.0) pg MCHC (31.0-37.0) g/dL RDW (11.5-15.5) % Plt Count (150-450) k/uL MPV Neutrophils % % Lymphocytes % % Monocytes % % Eosinophils % % Basophils % % Neutrophils # (1.3-7.7) k/uL Lymphocytes # (1.0-4.8) k/uL Monocytes # (0-1.0) k/uL Eosinophils # (0-0.7) k/uL Basophils # (0-0.2) k/uL PT (10.0-12.5) sec INR (<1.2) APTT (22.0-30.0) sec Sodium 142 (137-145) mmol/L Potassium 3.4 L (3.5-5.1) mmol/L Chloride 108 H (98-107) mmol/L Carbon Dioxide 27 (22-30) mmol/L Anion Gap 7 mmol/L BUN 14 (7-17) mg/dL Creatinine 0.69 (0.52-1.04) mg/dL Est GFR (CKD-EPI)AfAm >90 (>60 ml/min/1.73 sqM) Est GFR (CKD-EPI)NonAf >90 (>60 ml/min/1.73 sqM) Glucose 91 (74-99) mg/dL Plasma Lactic Acid [place] 1.0 (0.7-2.0) mmol/L Calcium 10.1 (8.4-10.2) mg/dL Total Bilirubin 0.5 (0.2-1.3) mg/dL AST 25 (14-36) U/L ALT 18 (4-34) U/L Alkaline Phosphatase 71 (38-126) U/L Troponin I <0.012 (0.000-0.034) ng/mL Total Protein 7.3 (6.3-8.2) g/dL Albumin 4.4 (3.5-5.0) g/dL Blood Type Blood Type Recheck Bld Type Recheck Status Antibody Screen Spec Expiration Date Disposition Clinical Impression: Flank pain, Back pain Disposition: ADMITTED IP TO THIS [facility] Condition: Good
[2024-03-20] MEDS: MORPHINE SULFATE 4 MG/ML SYRINGE IV STA (18:51)
[2024-03-20 19:24] LABS: Partial Thromboplastin Time 22.8 sec (22.0-30.0); Prothrombin Time 11.3 sec (10.0-12.5)
[2024-03-20 19:42] LABS: Basophils % (A) 0 %; Eosinophils % (A) 0 %; HCT 35.4 % (34.0-46.0); HGB 11.7 gm/dL (11.4-16.0); Lymphocytes # (A) 1.3 k/uL (1.0-4.8); Lymphocytes % (A) 21 %; MCH 27.7 pg (25.0-35.0); MCHC 33.1 g/dL (31.0-37.0); MCV 83.9 fL (80.0-100.0); Mean Platelet Volume 8.1; Monocytes # (A) 0.3 k/uL (0-1.0); Monocytes % (A) 5 %; Neutrophils # (A) 4.5 k/uL (1.3-7.7); Neutrophils % (A) 72 %; Platelet Count 193 k/uL (150-450); RBC 4.22 m/uL (3.80-5.40); RDW 14.2 % (11.5-15.5); WBC 6.2 k/uL (3.8-10.6)
[2024-03-20 19:51] LABS: ALT 18 U/L (4-34); AST 25 U/L (14-36); African American GFR (CKD) >90 (>60 ml/min/1.73 sqM); Albumin 4.4 g/dL (3.5-5.0); Alkaline Phosphatase 71 U/L (38-126); Anion Gap 7 mmol/L; Blood Urea Nitrogen 14 mg/dL (7-17); Calcium 10.1 mg/dL (8.4-10.2); Carbon Dioxide 27 mmol/L (22-30); Chloride 108 mmol/L (98-107); Glucose 91 mg/dL (74-99); Non-African American GFR(CKD) >90 (>60 ml/min/1.73 sqM); Potassium 3.4 mmol/L (3.5-5.1); Sodium 142 mmol/L (137-145); Total Bilirubin 0.5 mg/dL (0.2-1.3); Total Protein 7.3 g/dL (6.3-8.2)
--- NOTE | 2024-03-20 22:01 | CT ---
EXAMINATION TYPE: CT abdomen pelvis wo con DATE OF EXAM: 03/20/2024 9:48 PM COMPARISON: 03/19/2024 CLINICAL INDICATION: Female, 63 years old with history of right flank pain; Pt sent by Dr. Mackenzie javier or blood in urine and black stool x last night. Pt states she feels nauseated, lower left back pain, diaphoresis. Prior in PACS TECHNIQUE: Axial CT abdomen pelvis wo con;Sagittal and coronal reformats were created on a separate workstation. Contrast used: mL of , (none if empty) Oral contrast used: without Oral Contrast (none if empty) CT DLP: 1374.4 mGycm, Automated exposure control for dose reduction was used. FINDINGS: LOWER CHEST: The heart is mildly enlarged for size. ABDOMEN LIVER: Unremarkable GALLBLADDER AND BILE DUCTS: Gallbladder surgically absent. PANCREAS: Unremarkable. SPLEEN: Enlarged measuring up to 14.0 cm.. ADRENAL GLANDS: Right adrenal nodule measuring 13 mm likely adrenal adenoma. Left adrenal nodules. KIDNEYS AND URETERS: No evidence of hydronephrosis or renal calculus. The ureters are unremarkable. PELVIS BLADDER: No evidence for wall thickening or mass given limitations of exam. REPRODUCTIVE: Unremarkable. ABDOMEN & PELVIS STOMACH AND BOWEL: No evidence of bowel obstruction. The colon is decompressed with mild circumferent ial thickening involving the sigmoid colon. PERITONEUM/RETROPERITONEUM: No evidence of pneumoperitoneum or free fluid. VASCULATURE: No evidence of aortic aneurysm. MUSCULOSKELETAL: No acute osseous abnormalities, postsurgical changes to the lower spine Limited eval uation of the pelvis. Surgical changes at L2-S1 hardware intact. Bilateral sacroiliac joint screws in tact. LYMPH NODES: No gross evidence for lymphadenopathy. SOFT TISSUE/ABDOMINAL WALL: Unremarkable IMPRESSION: 1. Decompressed colon possibly representing mild colitis. No evidence for obstructive uropathy or re nal calculus. 2. The urinary bladder is nondistended and grossly unremarkable. 3. No evidence for acute abdominal process. Right adrenal nodule likely representing adrenal adenoma . 4. Splenomegaly. [facility], Workstation: [id number], 03/20/2024 9:59 PM
[2024-03-21] MEDS ORDERED: MAG HYDROX/AL HYDROX/SIMETH 30 ML CUP PO PRN (00:58)
[2024-03-21] MEDS ORDERED: NALOXONE 0.4 MG/ML 1 ML VIAL IV PRN (00:58)
[2024-03-21] MEDS ORDERED: MORPHINE SULFATE 4 MG/ML SYRINGE IV PRN (01:29)
[2024-03-21] MEDS: ONDANSETRON 4 MG/2 ML VIAL IVP PRN (02:48)
[2024-03-21 05:32] LABS: HCT 33.7 % (34.0-46.0); HGB 10.9 gm/dL (11.4-16.0); MCH 27.3 pg (25.0-35.0); MCHC 32.4 g/dL (31.0-37.0); MCV 84.1 fL (80.0-100.0); Mean Platelet Volume 8.3; Platelet Count 184 k/uL (150-450); RDW 14.8 % (11.5-15.5); WBC 7.2 k/uL (3.8-10.6)
[2024-03-21] MEDS: PANTOPRAZOLE 40 MG/10 ML VIAL IV SCH (07:47)
[2024-03-21] MEDS: HYDROcodone/APAP 7.5-325MG 1 EACH TAB PO PRN (07:47)
[2024-03-21 12:05] LABS: HCT 38.8 % (34.0-46.0); HGB 12.6 gm/dL (11.4-16.0); MCH 27.6 pg (25.0-35.0); MCHC 32.4 g/dL (31.0-37.0); MCV 85.3 fL (80.0-100.0); Mean Platelet Volume 7.9; Platelet Count 186 k/uL (150-450); RBC 4.55 m/uL (3.80-5.40); RDW 14.4 % (11.5-15.5); WBC 6.6 k/uL (3.8-10.6)
[2024-03-21 14:53] LABS: Appearance,Urine Clear (Clear); Bilirubin,Urine Negative (Negative); Blood,Urine Negative (Negative); Calcium Oxalate Crystals,Urine Rare /hpf; Color,Urine Yellow; Glucose,Urine (UA) Negative (Negative); Ketones,Urine Negative (Negative); Leukocyte Esterase,Urine Negative (Negative); Mucus,Urine Many /hpf; Nitrite,Urine Negative (Negative); Protein,Urine 1+ (Negative); RBC,Urine 2 /hpf (0-5); Specific Gravity,Urine 1.031 (1.001-1.035); Squamous Epithelial Cell,Urine 1 /hpf (0-4); Urobilinogen,Urine <2.0 mg/dL (<2.0); WBC,Urine 4 /hpf (0-5)
[2024-03-21 15:05] LABS: African American GFR (CKD) >90 (>60 ml/min/1.73 sqM); Anion Gap 9 mmol/L; Blood Urea Nitrogen 12 mg/dL (7-17); Calcium 9.9 mg/dL (8.4-10.2); Carbon Dioxide 23 mmol/L (22-30); Chloride 109 mmol/L (98-107); Glucose 92 mg/dL (74-99); Non-African American GFR(CKD) >90 (>60 ml/min/1.73 sqM); Potassium 3.3 mmol/L (3.5-5.1); Sodium 141 mmol/L (137-145)
--- NOTE | 2024-03-21 15:24 | P.CNOR ---
History of Present Illness - [facility] Consult date: 03/21/24 Requesting physician: Chris Mann Consult reason: other (lumbar/thoracic neuritis rt) History of present illness: Patient is a 63-year-old female who presented to the emergency department this morning due to increasing right-sided low back pain for over the past 1 week. Orthopedics was consulted due to thoracolumbar neuritis on the right side from medicine. Patient was seen at bedside this afternoon lying in the semirecumbent position and states that about a week ago she was at home when she began having bouts of nausea and vomiting as well as chills. Patient denies any falls /traumas. Patient states the pain is located in the right lower back with some radiation into the right upper leg and right groin. Patient says overall since spine surgery was performed on 11/15/2023 she does have significant improvement. Patient denies any issues with the incision on her spine. She says she is doing therapy weekly with improvement. Patient says she does have a history of kidney stones. Patient says since last Wednesday she has been unable to eat due to the ongoing symptoms and nausea that she has been feeling. Patient did have spine surgery performed on 11/15/2023 with a L2 to pelvis posterolateral instrumented fusion. Patient says she has been taking [place] at home which does help give her some relief for a couple hours before the pain comes back. Patient denies any changes in urination. Patient denies any other orthopedic complaints at this time. 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 History of Any Multi-Drug Resistant Organisms: None Reported Past Surgical History: Back Surgery, Cholecystectomy, Hernia Repair, Hysterectomy Additional Past Surgical History / Comment(s): LOWER BACK FUSION, EGD, COLONOSCOPY. STEROID SHOT 2009?, HIATAL HERNIA REPAIR, PAIN CLINIC PROCEDURES Past Anesthesia/Blood Transfusion Reactions: No Reported Reaction Additional Past Anesthesia/Blood Transfusion Reaction / Comm: Pt has never received blood. Smoking Status: Former smoker - Past Family History Mother Family Medical History: Musculoskeletal Disorder, Neurologic Disorder Additional Family Medical History / Comment(s): PARKINSONS Father Family Medical History: CVA/TIA, Hypertension Medications and Allergies Home Medications Medication Instructions Recorded Confirmed Type Aspirin EC [Ecotrin] 81 mg PO DAILY 03/26/14 03/21/24 History HYDROcodone/APAP 7.5-325MG [[place] 1 tab PO Q6H PRN 12/03/14 03/21/24 History 7.5-325] Esomeprazole Magnesium [NexIUM] 20 mg PO BID 01/17/15 03/21/24 History Atorvastatin [Lipitor] 10 mg PO DAILY 05/22/22 03/21/24 History Cholecalciferol (Vitamin D3) 125 mcg PO DAILY 05/22/22 03/21/24 History [Vitamin D3 (125 MCG = 5,000 IU)] Losartan Potassium 100 mg PO DAILY 05/22/22 03/21/24 History hydroCHLOROthiazide 25 mg PO DAILY 05/22/22 03/21/24 History DULoxetine HCL [Cymbalta] 30 mg PO BID 11/11/23 03/21/24 History Docusate [Colace] 100 mg PO DAILY 11/11/23 03/21/24 History Pregabalin [Lyrica] 150 mg PO BID 03/21/24 03/21/24 History Sennosides/Docusate Sodium [Senna 1 cap PO DAILY 03/21/24 03/21/24 History Plus 8.6-50 mg Softgel] Allergies Allergy/AdvReac Type Severity Reaction Status Date / Time No Known Allergies Allergy Verified 03/21/24 10:38 Physical Examination Inspection: Lumbar incision appears to be well-healed at midline. Negative for any active drainage, fluctuance, erythema or ecchymosis. Negative for any significant swelling. Sensation: Equal, symmetric, bilateral intact throughout the spine and lower extremities on exam. Palpation: Moderate tenderness palpation over the right SI joint. NTTP throughout rest of exam. Range of motion: Patient has good range of motion throughout bilateral hips and knees in flexion's extension. Patient does have good range of motion in plantarflexion bilaterally. There is some limited range of motion in left ankle dorsi flexion. Motor: 4-/5 in resisted left ankle dorsi flexion. 4/5 in all other major motor groups in bilateral lower extremities. Special test: Negative Mika bilaterally. Negative clonus bilaterally. Neurovascular: DP pulses palpable bilaterally. Cap refill under 3 seconds in digits of upper extremities. Radial pulses intact, 2+ bilaterally. Results - Labs Labs: Abnormal Lab Results - Last 24 Hours (Table) 03/20/24 03/21/24 03/21/24 Range/Units 19:06 04:38 14:04 Hgb 10.9 L (11.4-16.0) gm/dL Hct 33.7 L (34.0-46.0) % Potassium 3.4 L (3.5-5.1) mmol/L Chloride 108 H (98-107) mmol/L Urine Protein 1+ H (Negative) Calcium Oxalate Crystal Rare H (None) /hpf Urine Mucus Many H (None) /hpf 03/21/24 Range/Units 14:21 Hgb (11.4-16.0) gm/dL Hct (34.0-46.0) % Potassium 3.3 L (3.5-5.1) mmol/L Chloride 109 H (98-107) mmol/L Urine Protein (Negative) Calcium Oxalate Crystal (None) /hpf Urine Mucus (None) /hpf H & H 03/20/24 03/21/24 03/21/24 Range/Units 19:06 04:38 11:29 Hgb 11.7 10.9 L 12.6 (11.4-16.0) gm/dL Hct 35.4 33.7 L 38.8 (34.0-46.0) % Coagulation 03/20/24 Range/Units 19:06 INR 1.0 (<1.2) Result Diagrams: 03/21/24 11:29 03/21/24 14:21 - Diagnostic results Comments: Results from the CT abdomen pelvis image have been reviewed. The hardware in the lumbar spine appears to be stable and intact and in good alignment at this time. Assessment and Plan Assessment: 1. Right-sided low back pain; history of L2 to pelvis posterior lateral instrumented fusion Plan: 1. Right-sided low back pain; history of L2 to pelvis posterior lateral instrumented fusion -patient stable at bedside this afternoon. I did review the findings of the imaging and exam with my attending, Dr. Hendrickson. At this time we are not recommending any emergent/urgent orthopedic surgical spine intervention. We are recommending conservative measures with the use of pain medication and PT/OT. Patient may weight-bear as tolerated with walker and assistance as needed. Due to the patient's right side low back pain with some referred pain to the right hip we will order right hip x-ray to rule out any possible hip pathology. We will defer rest of the management during the patient's stay to the medicine team. Please do not hesitate to contact orthopedics as needed. 2. Appreciate medical management 3. Pain management -[place]; Lyrica 4. DVT prophylaxis -aspirin 5. GI prophylaxis -Maalox; Colace 6. PT/OT -weightbearing as tolerated with walker and assistance as needed 7. Encourage incentive spirometer use 8. Appreciate consult Time with Patient: Less than 30
[2024-03-21] MEDS ORDERED: Potassium Replacement Protocol 1 EACH MISC MISCELLANE PRN (15:51)
--- NOTE | 2024-03-21 16:09 | XR ---
EXAMINATION TYPE: XR Hip Limited RT DATE OF EXAM: 03/21/2024 3:58 PM COMPARISON: 08/19/2022 CLINICAL INDICATION: Female, 63 years old with history of pain; [facility] TECHNIQUE: XR Hip Limited RT; Frontal view FINDINGS: No evidence for acute process, joint dislocation or significant soft tissue swelling. Osteo phyte formation of the superior acetabulum of the hip. There is mild joint space narrowing. Fixation hardware partially visualized appears intact. IMPRESSION: 1. No evidence for acute process. 2. Mild hip osteoarthrosis. [facility], , 03/21/2024 4:07 PM
[2024-03-21] MEDS: POTASSIUM CHLORIDE ER 20 MEQ TAB.ER PO SCH (16:26)
[2024-03-21 19:04] LABS: HCT 35.1 % (34.0-46.0); HGB 11.8 gm/dL (11.4-16.0); MCH 28.4 pg (25.0-35.0); MCHC 33.6 g/dL (31.0-37.0); MCV 84.4 fL (80.0-100.0); Mean Platelet Volume 8.2; Platelet Count 173 k/uL (150-450); RBC 4.16 m/uL (3.80-5.40); RDW 14.6 % (11.5-15.5)
[2024-03-21] MEDS: PREGABALIN 75 MG CAP PO SCH (20:52)
[2024-03-21] MEDS: DULoxetine HCL 30 MG CAPSULE.DR PO SCH (20:53)
[2024-03-21] MEDS ORDERED: NON FORMULARY DRUG (Esomeprazole Magnesium [Nexium] 20 MG Capsule.Dr) PO SCH (21:00)
--- NOTE | 2024-03-21 22:46 | P.CONS ---
History of Present Illness - Reason for Consult Consult date: 03/21/24 Urosepsis Requesting physician: Chris Mann - Chief Complaint Right flank lower back pain x 1 week - History of Present Illness Patient is a 63-year-old female with a past medical history significant for hypertension hyperlipidemia osteoarthritis seizure disorder reflux in this patient who did have a recent revision to the lower back fusion presenting to the hospital for evaluation of right flank pain that the pain has been going on for about a week patient denies any history of any trauma describing the pain to be mostly sharp moderate intensity without radiation did have associated nausea but no vomiting patient denies high-grade fever however did have some chills admission the patient pain was initially mostly anterior abdominal and that has been mostly the flank area and no urinary symptoms patient on presentation to the hospital was afebrile and no fever have been ordered subsequently patient was not tachycardic hypotensive or hypoxic did have a white count of 6.0 with no left shift creatinine 0.68 liver enzymes has been normal patient did have a abdominal pelvis CT decompressed colon possibly representing mild colitis no evidence for obstructive uropathy or renal calculus urinary bladder is not distended and grossly unremarkable patient was started on Rocephin infectious disease was consulted concerning for possible urosepsis Review of Systems Positive point and negatives has been mentioned in the HPI, complete review of systems was performed and all other systems are negative Past Medical History Past Medical History: GERD/Reflux, Hyperlipidemia, Hypertension, Osteoarthritis (OA), Seizure Disorder Additional Past Medical History / Comment(s): 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 History of Any Multi-Drug Resistant Organisms: None Reported Past Surgical History: Back Surgery, Cholecystectomy, Hernia Repair, Hysterectomy Additional Past Surgical History / Comment(s): LOWER BACK FUSION, EGD, COLONOSCOPY. STEROID SHOT 2009?, HIATAL HERNIA REPAIR, PAIN CLINIC PROCEDURES Past Anesthesia/Blood Transfusion Reactions: No Reported Reaction Additional Past Anesthesia/Blood Transfusion Reaction / Comm: Pt has never received blood. Smoking Status: Former smoker - Past Family History Mother Family Medical History: Musculoskeletal Disorder, Neurologic Disorder Additional Family Medical History / Comment(s): PARKINSONS Father Family Medical History: CVA/TIA, Hypertension Medications and Allergies Home Medications Medication Instructions Recorded Confirmed Type Aspirin EC [Ecotrin] 81 mg PO DAILY 03/26/14 03/21/24 History HYDROcodone/APAP 7.5-325MG [[place] 1 tab PO Q6H PRN 12/03/14 03/21/24 History 7.5-325] Esomeprazole Magnesium [NexIUM] 20 mg PO BID 01/17/15 03/21/24 History Atorvastatin [Lipitor] 10 mg PO DAILY 05/22/22 03/21/24 History Cholecalciferol (Vitamin D3) 125 mcg PO DAILY 05/22/22 03/21/24 History [Vitamin D3 (125 MCG = 5,000 IU)] Losartan Potassium 100 mg PO DAILY 05/22/22 03/21/24 History hydroCHLOROthiazide 25 mg PO DAILY 05/22/22 03/21/24 History DULoxetine HCL [Cymbalta] 30 mg PO BID 11/11/23 03/21/24 History Docusate [Colace] 100 mg PO DAILY 11/11/23 03/21/24 History Pregabalin [Lyrica] 150 mg PO BID 03/21/24 03/21/24 History Sennosides/Docusate Sodium [Senna 1 cap PO DAILY 03/21/24 03/21/24 History Plus 8.6-50 mg Softgel] Allergies Allergy/AdvReac Type Severity Reaction Status Date / Time No Known Allergies Allergy Verified 03/21/24 10:38 Physical Exam Vitals: Vital Signs Temp Pulse Pulse Resp BP BP BP 03/21/24 07:00 98.1 F 80 18 111/68 03/21/24 02:39 98.4 F 66 17 131/84 03/21/24 01:00 70 16 103/60 03/20/24 21:43 77 18 116/81 03/20/24 18:56 85 16 138/100 03/20/24 17:30 76 18 137/91 03/20/24 16:37 98.2 F 91 18 126/76 Pulse Ox 03/21/24 07:00 93 L 03/21/24 02:39 97 03/21/24 01:00 92 L 03/20/24 21:43 97 03/20/24 18:56 97 03/20/24 17:30 98 03/20/24 16:37 99 Intake and Output 03/20/24 03/21/24 03/21/24 22:59 06:59 14:59 Intake Total 54 Balance 54 Intake: Oral 54 Other: Voiding Method Toilet Toilet # Voids 1 1 # Bowel Movements 1 Weight 106.594 kg 106.594 kg GENERAL DESCRIPTION: Elderly female lying in bed, no distress. No tachypnea or accessory muscle of respiration use. HEENT: Shows Pallor , no scleral icterus. Oral mucous membrane is dry. No pharyngeal erythema or thrush NECK: Trachea central, no thyromegaly. LUNGS: Unlabored breathing. Clear to auscultation anteriorly. No wheeze or crackle. HEART: S1, S2, regular rate and rhythm. No loud murmur ABDOMEN: Soft, mild right flank tenderness SKIN: No rash, no masses palpable. NEUROLOGICAL: The patient is awake, alert, oriented x3, mood and affect normal. Results CBC & Chem 7: 03/21/24 18:39 03/21/24 20:14 Labs: Abnormal Lab Results - Last 24 Hours (Table) 03/20/24 03/21/24 Range/Units 19:06 04:38 Hgb 10.9 L (11.4-16.0) gm/dL Hct 33.7 L (34.0-46.0) % Potassium 3.4 L (3.5-5.1) mmol/L Chloride 108 H (98-107) mmol/L Assessment and Plan (1) Flank pain Current Visit: Yes Status: Acute Code(s): R10.9 - UNSPECIFIED ABDOMINAL PAIN SNOMED Code(s): 074835649 (2) Colitis Current Visit: Yes Status: Acute Code(s): K52.9 - NONINFECTIVE GASTROENTERIT IS AND COLITIS, UNSPECIFIED SNOMED Code(s): 88106040 Plan: 1patient presented to hospital with right flank pain and did have some chills concerning for possible UTI/pyelo however the patient also mentioned pain mostly anteriorly initially with a CT showing concerning for possible colitis 2-blood culture has been requested and will also check a UA and culture 3-continue with Rocephin empirically add oral Flagyl to cover for possible colit is while waiting for the workup to be completed We will follow on clinical condition and cultures to further adjust medication if needed Thank you for this consultation we will follow the patient along with you Dictation was produced using [email or web address] dictation software. please excuse any grammatical, word or spelling errors. Time with Patient: Greater than 30
--- NOTE | 2024-03-22 01:27 | PN ---
PROGRESS NOTE SUBJECTIVE: This is a 63-year-old white female with possible abdominal pain, viral syndrome, unclear etiology for abdominal pain. Do an ultrasound to check for renal stones, OBJECTIVE: CARDIOVASCULAR: S1, S2. LUNGS: Transmitted upper sounds. GI: Soft. HEMATOLOGY: Negative Homans. PSYCH: Fair mood and affect. NEUROLOGIC: Alert and oriented x3. ABDOMEN: Soft, nontender. Dr. Hendrickson saw her for lumbar pain, cleared her from back issues. GI or Surgery consult for abdominal pain, chronic nausea and vomiting. Prognosis guarded. Ambulate as tolerated. Continue broad-spectrum antibiotics. Wait for Infectious Disease and GI to see. Prognosis guarded. MMODL / IJN: [id number] /
--- NOTE | 2024-03-22 07:46 | US ---
EXAMINATION TYPE: US abdomen complete DATE OF EXAM: 03/21/2024 COMPARISON: NONE CLINICAL INDICATION: Female, 63 years old with history of renal stones; r/o kidney stones TECHNIQUE: Grayscale and color Doppler imaging of the abdomen was performed. 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 pain IMPRESSION: 1. Nonspecific pattern to the liver seen with mild hepatic steatosis or underlying hepatocellular dis ease. 2. Postcholecystectomy. [facility], , 03/22/2024 7:44 AM
--- NOTE | 2024-03-22 08:31 | XR ---
EXAMINATION TYPE: XR lumbar spine 2 or 3V DATE OF EXAM: 03/22/2024 8:24 AM COMPARISON: 622 CLINICAL INDICATION: Female, 63 years old with history of low back pain; TECHNIQUE: XR lumbar spine 2 or 3V views are submitted. FINDINGS: Generalized demineralization. Surgical clips right upper quadrant. There is postsurgical change exten ding from levels L2 through sacrum. This spacers are somewhat anteriorly placed including L4-L5, nitish elate clinically. Grade 1 anterior listhesis L5-S1. Additional moderate degenerative disc disease at the thoracolumbar junction. Atherosclerotic change aorta. IMPRESSION: 1. Postsurgical changes with generalized osteopenia. There is a grade 1 anterolisthesis L5-S1. 2. Additional moderate to degenerative disc disease at the thoracolumbar junction. [facility], , 03/22/2024 8:28 AM
[2024-03-22] MEDS: ATORVASTATIN 10 MG TAB PO SCH (09:18)
[2024-03-22] MEDS: ASPIRIN 81 MG PO SCH (09:18)
[2024-03-22] MEDS: hydroCHLOROthiazide 25 MG TAB PO SCH (09:18)
[2024-03-22] MEDS: LOSARTAN 50 MG TAB PO SCH (09:18)
[2024-03-22] MEDS: metroNIDAZOLE 500 MG TAB PO SCH (09:19)
[2024-03-22] MEDS: CHOLECALCIFEROL 125 MCG (5000 IU) TABLET PO SCH (09:19)
[2024-03-22] MEDS: SENNOSIDES-DOCUSATE SODIUM 1 EACH TAB PO SCH (09:20)
[2024-03-22] MEDS: DOCUSATE 100 MG CAP PO SCH (09:20)
--- NOTE | 2024-03-22 11:29 | P.PN ---
Subjective Progress Note Date: 03/22/24 Principal diagnosis: Reason for follow-up is colitis/diarrhea Patient is a 63-year-old female with a past medical history significant for hypertension hyperlipidemia osteoarthritis seizure disorder reflux in this patient who did have a recent revision to the lower back fusion presenting to the hospital for evaluation of right flank pain, patient did have a CT that was reported as a decompressed colon possibly had a presenting mild colitis no obstructive uropathy ID consulted initially concerning for possible urosepsis. On today's evaluation that is 03/22/2024,the patient remains to be afebrile, patient is on room air not requiring supplemental oxygen and denies any shortness of breath no chest pain or cough.Patient denies did have some nausea but no further vomiting still complaining of pain to the right flank area also complaining of diarrhea for the last few days no blood in mucus in the stool. No CBC was done today patient did have a ESR of 11 CRP 0.30 UA was negative Objective - Vital Signs Vital signs: Vital Signs Temp 98.6 F 03/22/24 07:00 Pulse 72 03/22/24 07:00 Resp 16 03/22/24 07:00 BP 116/70 03/22/24 07:00 Pulse Ox 97 03/22/24 07:00 FiO2 Intake & Output 03/21/24 03/22/24 03/22/24 18:59 06:59 18:59 Intake Total 692 354 Output Total 100 Balance 592 354 Intake: Oral 692 354 Output: Urine 100 Other: Voiding Method Toilet Toilet Toilet # Voids 2 1 # Bowel Movements 1 - Exam GENERAL DESCRIPTION: An elderly female up in bed in no distress RESPIRATORY SYSTEM: Unlabored breathing , decreased breath sounds at bases HEART: S1 S2 regular rate and rhythm , ABDOMEN: Soft , no tenderness EXTREMITIES: No edema feet - Labs CBC & Chem 7: 03/21/24 18:39 03/21/24 20:14 Labs: Abnormal Lab Results - Last 24 Hours (Table) 03/21/24 03/21/24 Range/Units 14:04 14:21 Potassium 3.3 L (3.5-5.1) mmol/L Chloride 109 H (98-107) mmol/L Urine Protein 1+ H (Negative) Calcium Oxalate Crystal Rare H (None) /hpf Urine Mucus Many H (None) /hpf Assessment and Plan (1) Flank pain Current Visit: Yes Status: Acute Code(s): R10.9 - UNSPECIFIED ABDOMINAL PAIN SNOMED Code(s): 454816331 (2) Colitis Current Visit: Yes Status: Acute Code(s): K52.9 - NONINFECTIVE GASTROENTERITIS AND COLITIS, UNSPECIFIED SNOMED Code(s): 90479202 (3) Diarrhea Current Visit: Yes Status: Acute Code(s): R19.7 - DIARRHEA, UNSPECIFIED SNOMED Code(s): 04914967 Plan: 1patient presented to hospital with right flank pain and did have some chills concerning for possible UTI/pyelo however the patient also mentioned pain mostly anteriorly initially with a CT showing concerning for possible colitis 2-blood culture has been requested which are currently pending patient did have a negative UA that would make pyelonephritis less likely 3-patient is complaining of diarrhea CT did shows evidence of colitis we will check a stool for C. difficile and stool culture, continue empiric Rocephin and Flagyl while waiting for the workup to be completed at the bedside question answered Dictation was produced using [employer] dictation software. please excuse any grammatical, word or spelling errors. Time with Patient: Less than 30
--- NOTE | 2024-03-22 11:44 | CT ---
EXAMINATION TYPE: CT lumbar spine wo con DATE OF EXAM: 03/22/2024 9:28 AM COMPARISON: 11/15/2023 CLINICAL INDICATION: Female, 63 years old with history of r/o fracture, migration of hardware, R/O FR ACTURE TECHNIQUE: CT of the lumbar spine is performed on a spiral scan at 3 mm thick sections. Reconstructed images are performed in the coronal and sagittal planes. Contrast used: mL of , (none if empty) Oral contrast used: (none if empty) CT DLP: 952 mGycm, Automated exposure control for dose reduction was used. FINDINGS: Partial: Fixation is present L2-S1. Pelvic screws through the sacroiliac joints are evident . Disc spacers are present. T12-L1: No focal disc herniation or significant disc bulge is evident. No spinal canal stenosis or neural foraminal stenosis is present. L1-L2: No focal disc herniation or significant disc bulge is evident. No spinal canal stenosis or n eural foraminal stenosis is present L2-L3: No focal disc herniation or significant disc bulge is evident. No spinal canal stenosis or n eural foraminal stenosis is present. Beam hardening artifact limits this evaluation. L3-L4: No focal disc herniation or significant disc bulge is evident. No spinal canal stenosis or n eural foraminal stenosis is present. Beam hardening artifact limits this evaluation. L4-L5: No focal disc herniation or significant disc bulge is evident. No spinal canal stenosis or n eural foraminal stenosis is present. Beam hardening artifact limits this evaluation. Left hemilamine ctomy is present as well L5-S1: There is loss of disc at L5-S1. Beam hardening artifact limits this evaluation. No spinal can al stenosis is identified. No significant interval change. No hardware migration or fracture identified. IMPRESSION: 1. Stable appearance of prior fixation L2-S1. [facility], , 03/22/2024 11:42 AM
--- NOTE | 2024-03-22 15:52 | P.CONS ---
History of Present Illness - Reason for Consult Consult date: 03/22/24 Abdominal pain, emesis Requesting physician: Chris Mann - Chief Complaint Back pain - History of Present Illness This a pleasant 63-year-old female who presented to the emergency department with complaints of back pain. Also states that she has been having nausea with dry heaves. Patient states she has had nausea and dry heaves basically since she had her back surgery in November of this year. This occurs most mornings where she will have the dry heaves and nausea. Has been on multiple new medications. She denies any hematemesis. States pain is in her right mid to lower back and wraps around her flank and lower right abdomen. States his pain has been there since surgery. It has progressively gotten worse and she is seeing her physical therapist the other day and put pressure in her right lower back and her abdomen. She had a CT of the abdomen with no acute findings. States she is also has loose stools that sometimes turns into constipation. States she has a lot of anxiety. Last endoscopic evaluation was in [address] Bhandari. EGD showed antral gastritis colonoscopy showed mild diverticulosis with external hemorrhoids. Patient states abdominal and back pain improved with pain medication. Patient has been able to eat. Review of Systems REVIEW OF SYSTEMS: CARDIOPULMONARY: No chest pain or shortness of breath. Gastrointestinal: Right flank and lower abdominal pain which radiates from her back. Nausea with dry heaves. No hematemesis, coffee-ground emesis. No rectal bleeding, or melena. GENITOURINARY: No dysuria or hematuria. MUSCULOSKELETAL: Reports normal range of motion., Joint pain. Right flank and back pain. SKIN: No rashes. No jaundice. ENDOCRINE: No chills, fevers. No excessive weight gain or loss. No polydipsia or polyuria. PSYCHIATRIC: Unremarkable. NEUROLOGY: No change in mental status. Denies dizziness, headache. ENT: Vision unremarkable. CONSTITUTIONAL: No recent weight loss. No fever, chills, night sweats. 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 History of Any Multi-Drug Resistant Organisms: None Reported Past Surgical History: Back Surgery, Cholecystectomy, Hernia Repair, Hysterectomy Additional Past Surgical History / Comment(s): LOWER BACK FUSION, EGD, COLONOSCOPY. STEROID SHOT 2009?, HIATAL HERNIA REPAIR, PAIN CLINIC PROCEDURES Past Anesthesia/Blood Transfusion Reactions: No Reported Reaction Additional Past Anesthesia/Blood Transfusion Reaction / Comm: Pt has never received blood. Smoking Status: Former smoker - Past Family History Mother Family Medical History: Musculoskeletal Disorder, Neurologic Disorder Additional Family Medical History / Comment(s): PARKINSONS Father Family Medical History: CVA/TIA, Hypertension Medications and Allergies Home Medications Medication Instructions Recorded Confirmed Type Aspirin EC [Ecotrin] 81 mg PO DAILY 03/26/14 03/21/24 History HYDROcodone/APAP 7.5-325MG [[place] 1 tab PO Q6H PRN 12/03/14 03/21/24 History 7.5-325] Esomeprazole Magnesium [NexIUM] 20 mg PO BID 01/17/15 03/21/24 History Atorvastatin [Lipitor] 10 mg PO DAILY 05/22/22 03/21/24 History Cholecalciferol (Vitamin D3) 125 mcg PO DAILY 05/22/22 03/21/24 History [Vitamin D3 (125 MCG = 5,000 IU)] Losartan Potassium 100 mg PO DAILY 05/22/22 03/21/24 History hydroCHLOROthiazide 25 mg PO DAILY 05/22/22 03/21/24 History DULoxetine HCL [Cymbalta] 30 mg PO BID 11/11/23 03/21/24 History Docusate [Colace] 100 mg PO DAILY 11/11/23 03/21/24 History Pregabalin [Lyrica] 150 mg PO BID 03/21/24 03/21/24 History Sennosides/Docusate Sodium [Senna 1 cap PO DAILY 03/21/24 03/21/24 History Plus 8.6-50 mg Softgel] Allergies Allergy/AdvReac Type Severity Reaction Status Date / Time No Known Allergies Allergy Verified 03/21/24 10:38 Physical Exam Vitals: Vital Signs Temp Pulse Resp BP Pulse Ox 03/22/24 07:00 98.6 F 72 16 116/70 97 03/22/24 02:00 97.9 F 67 17 116/69 93 L 03/21/24 20:00 97.8 F 71 16 109/68 97 03/21/24 14:15 98.5 F 72 17 143/84 100 Intake and Output 03/21/24 03/22/24 03/22/24 22:59 06:59 14:59 Intake Total 520 354 Balance 520 354 Intake: Oral 520 354 Other: Voiding Method Toilet Toilet # Voids 2 1 General appearance: The patient is alert, oriented, appears in no acute distress. HET: Head is normocephalic and atraumatic. Conjunctiva pink. Sclera anicteric. Neck: Supple without lymphadenopathy. Trachea midline. Heart: Regular. Lungs: Equal expansion, normal respiratory effort. Abdomen: Soft, nontender, nondistended. Right flank tenderness. Skin: No rashes. No jaundice. Extremities: Normal skin color and turgor. No pedal edema. Neurological: No focal deficits. Alert and oriented x3. Results CBC & Chem 7: 03/21/24 18:39 03/21/24 20:14 Labs: Abnormal Lab Results - Last 24 Hours (Table) 03/21/24 03/21/24 Range/Units 14:04 14:21 Potassium 3.3 L (3.5-5.1) mmol/L Chloride 109 H (98-107) mmol/L Urine Protein 1+ H (Negative) Calcium Oxalate Crystal Rare H (None) /hpf Urine Mucus Many H (None) /hpf Comments: CT abdomen and pelvis reports decompressed colon possibly representing mild colitis. No evidence for obstructive uropathy or renal calculus. Urinary bladder is nondistended and grossly unremarkable. No evidence for acute abdominal process. Right adrenal nodule likely representing adrenal adenoma. Splenomegaly. Abdominal ultrasound reports nonspecific pattern to the liver seen with mild hepatic steatosis or underlying hepatocellular disease. Postcholecystectomy. Assessment and Plan (1) Abdominal pain Narrative/Plan: 63-year-old female who underwent back surgery in November of this year was had continued back pain since that time as well as nausea with some dry heaves most mornings. States most of her pain is in her right back and it does radiate to her right flank and lower abdomen. Unclear if abdominal pain is secondary to back pain and muscle ache secondary to physical therapy where patient reports recent pressure applied to her lower back and abdomen which then is what increased her pain to come into the hospital. She has been on multiple new medications which can because of patient's nausea. Patient's last EGD and colonoscopy was in 2016, it would be reasonable for patient to follow-up with gastroenterology and consider possible EGD and colonoscopy if symptoms do not resolve. Current Visit: Yes Status: Acute Code(s): R10.9 - UNSPECIFIED ABDOMINAL PAIN SNOMED Code(s): 41572554 (2) Nausea Current Visit: Yes Status: Acute Code(s): R11.0 - NAUSEA SNOMED Code(s): 272096152 (3) Flank pain Current Visit: Yes Status: Acute Code(s): R10.9 - UNSPECIFIED ABDOMINAL PAIN SNOMED Code(s): 703886378 (4) Back pain Current Visit: No Status: Acute Code(s): M54.9 - DORSALGIA, UNSPECIFIED SNOMED Code(s): 775611811 Plan: 1. Continue symptomatic and supportive care 2. Continue pain medications as needed 3. Antiemetics as needed 4. Continue with recommendations from orthopedic surgeon 5. No plans on endoscopic evaluation at this time. Discussed with patient she can follow-up as an outpatient if symptoms continue. Patient was agreeable with that plan. 6. Continue Protonix 40 mg daily Thank you for this consultation, we will continue to follow. Dr. Darinel Espinosa I agree with the dictator's note, documented as a scribe by Jackelyn Plascencia.
--- NOTE | 2024-03-23 11:51 | P.PN ---
Subjective Progress Note Date: 03/23/24 Principal diagnosis: Back pain This a pleasant 63-year-old female who presented to the emergency department with complaints of back pain. Also states that she has been having nausea with dry heaves. Patient states she has had nausea and dry heaves basically since she had her back surgery in November of this year. This occurs most mornings where she will have the dry heaves and nausea. Has been on multiple new medications. She denies any hematemesis. States pain is in her right mid to lower back and wraps around her flank and lower right abdomen. States his pain has been there since surgery. It has progressively gotten worse and she is seeing her physical therapist the other day and put pressure in her right lower back and her abdomen. She had a CT of the abdomen with no acute findings. States she is also has loose stools that sometimes turns into constipation. States she has a lot of anxiety. Last endoscopic evaluation was in [address] Bhandari. EGD showed antral gastritis colonoscopy showed mild diverticulosis with external hemorrhoids. Patient states abdominal and back pain improved with pain medication. Patient has been able to eat. 03/23/2024 Patient seen and examined today as a follow-up. She states her back pain and abdominal pain have improved and are much better. No nausea or vomiting and is asking to increase her diet. Stool C. difficile is negative Objective - Vital Signs Vital signs: Vital Signs Temp 97.8 F 03/23/24 07:00 Pulse 83 03/23/24 07:00 Resp 18 03/23/24 07:00 BP 105/65 03/23/24 07:00 Pulse Ox 98 03/23/24 07:00 FiO2 Intake & Output 03/22/24 03/23/24 03/23/24 18:59 06:59 18:59 Intake Total 1738 480 Balance 1738 480 Intake: Oral 1738 480 Other: Voiding Method Toilet Toilet # Voids 1 - Exam General appearance: The patient is alert, oriented, appears in no acute distress. HET: Head is normocephalic and atraumatic. Conjunctiva pink. Sclera anicteric. Neck: Supple without lymphadenopathy. Abdomen: Soft, nontender, nondistended with bowel sounds. No guarding or rigidity. Extremities: Normal skin color and turgor. No pedal edema Skin: No rashes, no jaundice Neurological: No focal deficits. Alert and oriented. - Labs CBC & Chem 7: 03/21/24 18:39 03/21/24 20:14 Labs: Microbiology - Last 24 Hours (Table) 03/21/24 14:21 Blood Culture - Preliminary Blood 03/21/24 14:04 Urine Culture - Final Urine,Voided Assessment and Plan (1) Abdominal pain Narrative/Plan: 63-year-old female who underwent back surgery in November of this year was had continued back pain since that time as well as nausea with some dry heaves most mornings. States most of her pain is in her right back and it does radiate to her right flank and lower abdomen. Unclear if abdominal pain is secondary to back pain and muscle ache secondary to physical therapy where patient reports recent pressure applied to her lower back and abdomen which then is what increased her pain to come into the hospital. She has been on multiple new medications which can because of patient's nausea. Patient's last EGD and colonoscopy was in 2016, it would be reasonable for patient to follow-up with gastroenterology and consider possible EGD and colonoscopy if symptoms do not resolve. Current Visit: Yes Status: Acute Code(s): R10.9 - UNSPECIFIED ABDOMINAL PAIN SNOMED Code(s): 12907049 (2) Nausea Current Visit: Yes Status: Acute Code(s): R11.0 - NAUSEA SNOMED Code(s): 613478005 (3) Flank pain Current Visit: Yes Status: Acute Code(s): R10.9 - UNSPECIFIED ABDOMINAL PAIN SNOMED Code(s): 814645900 (4) Back pain Current Visit: No Status: Acute Code(s): M54.9 - DORSALGIA, UNSPECIFIED SNOMED Code(s): 114158546 Plan: 1. Continue symptomatic and supportive care 2. Continue pain medications as needed 3. Antiemetics as needed 4. Continue with recommendations from orthopedic surgeon 5. No plans on endoscopic evaluation at this time. Discussed with patient she can follow-up as an outpatient if symptoms continue. Patient was agreeable with that plan. 6. Continue Protonix 40 mg daily 7. Advance to regular diet Thank you for this consultation, patient is cleared from gastroenterology for discharge. We will sign off at this time. Dr. Darinel Espinosa I agree with the dictator's note, documented as a scribe by Jackelyn Plascencia.
[2024-03-23 13:09] VITALS: BP 101/59; PULSE 93; RESP 18; TEMP 98.2
--- NOTE | 2024-03-23 15:27 | P.PN ---
Subjective Progress Note Date: 03/23/24 Principal diagnosis: Reason for follow-up is colitis/diarrhea Patient is a 63-year-old female with a past medical history significant for hypertension hyperlipidemia osteoarthritis seizure disorder reflux in this patient who did have a recent revision to the lower back fusion presenting to the hospital for evaluation of right flank pain, patient did have a CT that was reported as a decompressed colon possibly had a presenting mild colitis no obstructive uropathy ID consulted initially concerning for possible urosepsis. On today's evaluation that is 03/23/2024, the patient continues to be afebrile, the patient is on room air and breathing comfortably, the Pt denies having any chest pain or cough, the patient mention improvement to the right flank pain no nausea vomiting and diarrhea has slowed down. Patient did have a negative stool for C. difficile no lab draw today blood cultures so far negative Objective - Vital Signs Vital signs: Vital Signs Temp 97.8 F 03/23/24 07:00 Pulse 83 03/23/24 07:00 Resp 18 03/23/24 07:00 BP 105/65 03/23/24 07:00 Pulse Ox 98 03/23/24 07:00 FiO2 Intake & Output 03/22/24 03/23/24 03/23/24 18:59 06:59 18:59 Intake Total 1738 480 Balance 1738 480 Intake: Oral 1738 480 Other: Voiding Method Toilet Toilet # Voids 1 - Exam GENERAL DESCRIPTION: An elderly female up in bed in no distress RESPIRATORY SYSTEM: Unlabored breathing , decreased breath sounds at bases HEART: S1 S2 regular rate and rhythm , ABDOMEN: Soft , no tenderness EXTREMITIES: No edema feet - Labs CBC & Chem 7: 03/21/24 18:39 03/21/24 20:14 Labs: Microbiology - Last 24 Hours (Table) 03/21/24 14:21 Blood Culture - Preliminary Blood 03/21/24 14:04 Urine Culture - Final Urine,Voided Assessment and Plan (1) Flank pain Current Visit: Yes Status: Acute Code(s): R10.9 - UNSPECIFIED ABDOMINAL PAIN SNOMED Code(s): 934150651 (2) Colitis Current Visit: Yes Status: Acute Code(s): K52.9 - NONINFECTIVE GASTROENTERITIS AND COLITIS, UNSPECIFIED SNOMED Code(s): 61807566 (3) Diarrhea Current Visit: Yes Status: Acute Code(s): R19.7 - DIARRHEA, UNSPECIFIED SNOMED Code(s): 64093852 Plan: 1patient presented to hospital with right flank pain and did have some chills concerning for possible UTI/pyelo however the patient also mentioned pain mostly anteriorly initially with a CT showing concerning for possible colitis 2-blood culture has been requested which are currently pending patient did have a negative UA that would make pyelonephritis less likely 3-patient is complaining of diarrhea CT did shows evidence of colitis, patient stool for C. difficile back negative stool culture pending in view of clinical improvement continue with Roctricia and Flagyl Dictation was produced using [employer] dictation software. please excuse any grammatical, word or spelling errors. Time with Patient: Less than 30
[2024-03-23] MEDS: CEFDINIR 300 MG CAP PO SCH (16:25)
--- NOTE | 2024-03-24 00:02 | DS ---
DISCHARGE SUMMARY A 63-year-old white female, came in with acute colitis, acute on chronic abdominal pain, severe right lower lumbar pain with suspected lumbar radiculopathy, treated for colitis with sepsis with fever, chills, nausea, vomiting, dehydration. Fluids were rehydrated. She was placed on IV antibiotics ceftriaxone for 2 to 3 days. She improved with Flagyl for the colitis. She was sent home on oral Flagyl, oral Omnicef, cefdinir to take for another week. Pain medicines for control. Condition stable. Prognosis guarded. Ambulate as tolerated. HOME MEDICATIONS: 1. Flagyl 500 t.i.d. for 7 days. 2. Cefdinir 300 mg b.i.d. for 7 days. 3. Protonix 40 mg at bedtime. 4. Cymbalta 30 b.i.d. 5. HydroDIURIL 25 daily. 6. Lipitor 10 daily. 7. Aspirin 81 daily. Prognosis guarded. Condition stable. Ambulate as tolerated. Please see further orders. MMODL / IJN: [id number] /
--- NOTE | 2024-04-10 06:28 | HP ---
HISTORY AND PHYSICAL SUBJECTIVE: I saw the patient on 03/20/2024 in the emergency room. This is 63-year-old white female who is having right low back pain for about a week coupled with nausea and vomiting. She was not getting better, she came to the hospital. Nothing worked or helped in the past. She was brought to the hospital and she was admitted for this abdominal pain. MEDICINES: Include: 1. Aspirin. 2. Stroud 7.5 q.6 hours. 3. Nexium 20 mg b.i.d. 4. Lipitor 10 mg daily. 5. Losartan 100 mg daily. 6. Hydrochlorothiazide 25 daily. 7. Cymbalta 30 b.i.d. 8. Colace 100 daily. 9. Lyrica 150 b.i.d. ALLERGIES: Negative. REVIEW OF SYSTEMS: Otherwise negative. PAST MEDICAL HISTORY: GERD, dyslipidemia, hypertension, osteoarthritis, seizure disorder. PAST SURGICAL HISTORY: Back surgery, cholecystectomy, hernia repair, hysterectomy, lumbar back fusions, hernia repairs. FAMILY HISTORY: Mother with musculoskeletal, neurologic disorder. Father with hyperlipidemia. PHYSICAL EXAMINATION: VITAL SIGNS: Reviewed. Temp 98.2, pulse is 70s to 90s, respiratory rate 16-18, blood pressure 120s to 130s over 70s to 100s. GENERAL: She is in severe apparent distress with severe pain and severe tenderness to palpation right flank, right lower quadrant of the abdomen. Mild guarding. LUNGS: Mild wheeze. CARDIOVASCULAR: S1, S2. NEUROLOGIC: Cranial nerves intact. SKIN: Warm, dry, intact. ENDOCRINE: BMI is over 40. LABORATORY DATA: White count of 6, hemoglobin is 11.8, chloride 108, GFR over 90. Troponin negative. She has acute abdominal pain, flank pain, possible pyelonephritis versus viral syndrome versus enteritis. Blood cultures have been drawn. IV antibiotics have been given. Prognosis guarded. Please see further orders. MMODL / IJN: [id number] /
== END 2024-03-23 16:36 | disposition home or self-care (01) ==
LOC: EC 16:36 → 6NMEDSUR 03-21 00:59
PROVIDERS: ADMIT Family Medicine; ATTEND Family Medicine
DX: M54.50 Low back pain, unspecified (principal); K52.9 Noninfective gastroenteritis and colitis, unspecified; E86.0 Dehydration; I10 Essential (primary) hypertension; E78.5 Hyperlipidemia, unspecified; K21.9 Gastro-esophageal reflux disease without esophagitis; G40.409 Other generalized epilepsy and epileptic syndromes, not intractable, without status epilepticus; F32.A Depression, unspecified; F41.9 Anxiety disorder, unspecified; M19.90 Unspecified osteoarthritis, unspecified site; A41.9 Sepsis, unspecified organism; Z79.82 Long term (current) use of aspirin; Z79.899 Other long term (current) drug therapy; Z87.442 Personal history of urinary calculi; Z87.891 Personal history of nicotine dependence; Z90.710 Acquired absence of both cervix and uterus; Z98.1 Arthrodesis status
CPT/HCPCS: 96376 ×3; 96365; 96366; 96375 ×2; 99284; 36415; 86900; 86901; 80053; 80048; 85652; 83605; 84132; 84484; 85025; 85027; 85610; 85730; 86850; 86140; 82272; 81001; 87040; 87324; 87086; 87045; 87046; 72100; 73501; 76700; 72131; 74176; G0378 ×3; J2270; J2405; J0696 ×2; J2470 ×3

== ENCOUNTER → 2024-08-22 | Outpatient (CLI) | payer MEDICARE ==
--- NOTE | 2024-08-22 13:22 | MM ---
Reason for Exam: Clinical finding. Last mammogram was performed 2 year(s) and 4 month(s) ago. Indicated Problems: Bloody discharge of the right side for 3 Month(s). Patient History: Menarche at age 11. First Full-Term at age 23. Hysterectomy at age 40. Postmenopausal. Risk Values: Karon 5 year model risk: 1.9%. NCI Lifetime model risk: 6.7%. Prior Study Comparison: 06/28/2012 Bilateral Screening Mammogram, [facility]. 06/08/2018 Bilateral Diagnostic Mammogram, [facility]. 07/03/2019 Bilateral Screening Mammogram, [facility]. 04/21/2022 Bilateral MG 3D screening mammo w/cad, [facility]. Tissue Density: There are scattered areas of fibroglandular density. Findings: Analyzed By CAD. Benign bilateral oil cyst calcifications. No significant mass, suspicious microcalcification, or other discrete abnormality is seen. Overall Assessment: Incomplete: need additional imaging evaluation, BI-RAD 0 Management: Diagnostic Breast Ultrasound of the right breast. Periareolar and subareolar regions for occasional bloody nipple discharge. [facility], , 08/22/2024 1:20 PM. Electronically signed and approved by: Katelyn Younger M.D. Radiologist
--- NOTE | 2024-08-22 13:55 | USB ---
Reason for Exam: Clinical finding. Patient History: Menarche at age 11. First Full-Term at age 23. Hysterectomy at age 40. Postmenopausal. Risk Values: Karon 5 year model risk: 1.9%. NCI Lifetime model risk: 6.7%. Technique: Method: Targeted. Prior Study Comparison: 06/08/2018 Bilateral Diagnostic Mammogram, [facility]. 07/03/2019 Bilateral Screening Mammogram, [facility]. 04/21/2022 Bilateral MG 3D screening mammo w/cad, [facility]. Findings: The periareolar of the right breast and the retroareolar of the right breast were scanned. Targeted subareolar and periareolar right breast ultrasound. Solitary ectatic duct is again noted, unchanged from 2019. No solid or cystic lesion. Overall Assessment: Benign, BI-RAD 2 Management: Screening Mammogram of both breasts in 1 year. Recommend clinical follow-up to assess if the occasional bloody discharge persists if the patient leaves the nipple alone. If bloody discharge persists or worsens, surgical evaluation would be recommended. A clinical breast exam by your physician is recommended on an annual basis and results should be correlated with mammographic findings. This exam should not preclude additional follow-up of suspicious palpable abnormalities. Results were given to the patient verbally at the time of exam. [facility], , 08/22/2024 1:53 PM. Electronically signed and approved by: Katelyn Younger M.D. Radiologist
== END | disposition home or self-care (01) ==
LOC: RADMAMWWP 12:38
PROVIDERS: ATTEND Family Medicine
DX: R92.323 Mammographic fibroglandular density, bilateral breasts (principal); N64.52 Nipple discharge; Z78.0 Asymptomatic menopausal state
CPT/HCPCS: 77066; 76642; G0279; 77062

== ENCOUNTER 2024-10-27 12:43 | Observation (INO) | payer MEDICARE ==
--- NOTE | 2024-10-27 13:58 | ED ---
Nausea/Vomiting/Diarrhea HPI - General Source: patient, RN notes reviewed Mode of arrival: ambulatory Limitations: no limitations - History of Present Illness MD complaint: nausea, vomiting, diarrhea <Brittni Shepherd - Last Filed: 10/27/24 16:46> - General Source: patient, RN notes reviewed Mode of arrival: ambulatory Limitations: no limitations - History of Present Illness MD complaint: nausea, vomiting, diarrhea <Leonardo Alexandre - Last Filed: 10/27/24 19:57> - General Chief complaint: Nausea/Vomiting/Diarrhea Stated complaint: N/V/D Time Seen by Provider: 10/27/24 13:38 - History of Present Illness Initial comments: This is a 64-year-old female who presents to the emergency department for nausea, vomiting, abdominal pain, and diarrhea. States that it started 3 days ago. Abdominal pain is in the pelvic region. Believes that it is slightly worse on the right side. States that the nausea and vomiting has been constant and she is just dry heaving at this point. States that she is also having at least 10 bowel movements a day and it is essentially straight water. Denies any recent antibiotic use. She was evaluated by her PCP and advised to come to the emergency department for admission as she states that the last time this happened she was septic. (Brittni Shepherd) - Related Data Home Medications Medication Instructions Recorded Confirmed HYDROcodone/APAP 7.5-325MG [Lanexa 1 tab PO QID 12/03/14 10/27/24 7.5-325] Atorvastatin [Lipitor] 10 mg PO DAILY 05/22/22 10/27/24 Losartan Potassium 100 mg PO DAILY 05/22/22 10/27/24 hydroCHLOROthiazide 25 mg PO DAILY 05/22/22 10/27/24 DULoxetine HCL [Cymbalta] 30 mg PO BID 11/11/23 10/27/24 Pregabalin [Lyrica] 150 mg PO BID 03/21/24 10/27/24 Omeprazole [PriLOSEC] 20 mg PO HS 10/27/24 10/27/24 Allergies Allergy/AdvReac Type Severity Reaction Status Date / Time No Known Allergies Allergy Verified 10/27/24 17:49 Review of Systems ROS Other: All systems not noted in ROS Statement are negative. <Brittni Shepherd - Last Filed: 10/27/24 16:46> ROS Other: All systems not noted in ROS Statement are negative. <Leonardo Alexandre - Last Filed: 10/27/24 19:57> ROS Statement: Those systems with pertinent positive or pertinent negative responses have been documented in the HPI. 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 History of Any Multi-Drug Resistant Organisms: None Reported Past Surgical History: Back Surgery, Cholecystectomy, Hernia Repair, Hysterectomy, Joint Replacement, Orthopedic Surgery Additional Past Surgical History / Comment(s): LOWER BACK FUSION, EGD, COLONOSCOPY. STEROID SHOT 2009?, HIATAL HERNIA REPAIR, PAIN CLINIC PROCEDURES Past Anesthesia/Blood Transfusion Reactions: No Reported Reaction Additional Past Anesthesia/Blood Transfusion Reaction / Comment(s): Pt has never received blood. Past Psychological History: Anxiety, Depression Smoking Status: Former smoker Past Alcohol Use History: Occasional Past Drug Use History: Marijuana - Past Family History Mother Family Medical History: Musculoskeletal Disorder, Neurologic Disorder Additional Family Medical History / Comment(s): PARKINSONS Father Family Medical History: Hypertension <Brittni Shepherd - Last Filed: 10/27/24 16:46> General Exam Limitations: no limitations General appearance: alert, in no apparent distress Head exam: Present: atraumatic, normocephalic, normal inspection Respiratory exam: Present: normal lung sounds bilaterally. Absent: respiratory distress, wheezes, rales, rhonchi, stridor Cardiovascular Exam: Present: regular rate, normal rhythm GI/Abdominal exam: Present: soft, tenderness (Suprapubic), normal bowel sounds. Absent: distended Neurological exam: Present: alert, oriented X3, CN II-XII intact Psychiatric exam: Present: normal affect, normal mood Skin exam: Present: warm, dry, intact, normal color. Absent: rash <Brittni Shepherd - Last Filed: 10/27/24 16:46> Course Vital Signs 10/27/24 10/27/24 10/27/24 12:53 14:25 18:17 Temperature 97.9 F 98.4 F Pulse Rate 77 71 80 Respiratory 20 18 16 Rate Blood Pressure 129/106 140/75 127/62 O2 Sat by Pulse 99 96 92 L Oximetry Medical Decision Making - Lab Data Result diagrams: 10/27/24 14:00 10/27/24 14:00 - Radiology Data Radiology results: report reviewed, image reviewed <Brittni Shepherd - Last Filed: 10/27/24 16:46> - Lab Data Result diagrams: 10/27/24 14:00 10/27/24 14:00 <Leonardo Alexandre - Last Filed: 10/27/24 19:57> - Medical Decision Making This is a 64-year-old female who presents to the emergency department for abdominal pain, nausea, vomiting, and diarrhea. Was pt. sent in by a medical professional or institution? @ -Her PCP Did you speak to anyone other than the patient for history? @ -No Did you review nursing and triage notes? @ -Yes, and I agree, it is accurate with regards to the patient's symptoms. Were old charts reviewed? @ -No Differential Diagnosis? @ -Differential Abdominal Pain Women: Appendicitis, Cholecystitis, diverticulosis, ischemic bowel, pancreatitis, hepatitis, UTI, gastroenteritis, AAA, incarcerated hernia, bowel obstruction, constipation, inflammatory bowel, hepatitis, peptic ulcer disease, splenic infarction, perforated viscus, vulvitis, ovarian torsion, PID, kidney stone, placenta abruption, this is not meant to be an all-inclusive list EKG interpreted by me (3pts min.)? @ -EKG interpreted by me demonstrating the following: Sinus rhythm. Ventricular rate 81 bpm, DC interval 155 ms, QRS duration 102 ms, QTc 425 ms. X-rays interpreted by me (1pt min.)? @ -Not obtained CT interpreted by me (1pt min.)? @ -CT scan of the chest, abdomen, and pelvis obtained. My interpretation identifies no bowel wall thickening or free air. U/S interpreted by me (1pt. min.)? @ -Not obtained What testing was considered but not performed? (CT, X-rays, U/S, labs)? Why? @ -None What meds were considered but not given? Why? @ -None Did you discuss the management of the patient with other professionals? @ -No Did you reconcile home meds? @ -No Was smoking cessation discussed for >3mins.? @ -No Was critical care preformed (if so, how long)? @ -No Were there social determinants of health that impacted care today? How? (Triny elessness, low income, unemployed, alcoholism, drug addiction, transportation, low edu. Level, literacy, decrease access to med. care, fpc, rehab)? @ -No Was there de-escalation of care discussed even if they declined? (Discuss DNR or withdrawal of care, Hospice)? @ -No What co-morbidities impacted this encounter? (DM, HTN, Smoking, COPD, CAD, C ancer, CVA, Hep., AIDS, mental health diagnosis, sleep apnea, morbid obesity)? @ -GERD, HTN, HLD Was patient admitted / discharged? @ -Lab work demonstrates mild hypomagnesemia with magnesium of 1.4 and is otherwise unremarkable. CT scan of the chest/abdomen/pelvis obtained revealing no acute process. 400 mg of magnesium oxide administered along with IV fluids and Zofran. Her nausea had improved, however she still had some mild residual nausea. Reglan then administered with improvement in symptoms. Case signed out to Leonardo Alexandre PA-C, at shift completion pending UA results and disposition. Undiagnosed new problem with uncertain prognosis? @ -None Drug Therapy requiring intensive monitoring for toxicity (Heparin, Nitro, Insulin, Cardizem)? @ -None Were any procedures done? @ -None (Brittni Shepherd) Was pt. sent in by a medical professional or institution (DOREEN Saenz, AUTOMOTIVE [employer]ES[employer] ADVISOR, urgent care, hospital, or shelter...) When possible be specific @ -Dr. Mann Did you speak to anyone other than the patient for history (EMS, parent, family, police, friend...)? What history was obtained from this source @ -No Did you review nursing and triage notes (agree or disagree)? Why? @ -I reviewed and agree with nursing and triage notes Were old charts reviewed (outside hosp., previous admission, EMS record, old EKG, old radiological studies, urgent care reports/EKG's, shelter records)? Report findings @ -No old charts were reviewed Differential Diagnosis (chest pain, altered mental status, abdominal pain women, abdominal pain men, vaginal bleeding, weakness, fever, dyspnea, syncope, headache, dizziness, GI bleed, back pain, seizure, CVA, palpatations, mental health, musculoskeletal)? @ -Differential Abdominal Pain Women: Appendicitis, Cholecystitis, diverticulosis, ischemic bowel, pancreatitis, hepatitis, UTI, gastroenteritis, AAA, incarcerated hernia, bowel obstruction, constipation, inflammatory bowel, hepatitis, peptic ulcer disease, splenic infarction, perforated viscus, vulvitis, ovarian torsion, PID, kidney stone, [place] abruption, this is not meant to be an all-inclusive list EKG interpreted by me (3pts min.). @ -Sinus rhythm with sinus arrhythmia and LAD. No ST deviation or T wave inversion. Ventricular rate 81 bpm, NACHO 155 ms, QRS 102 ms, QTc 425 ms. X-rays interpreted by me (1pt min.). @ -None done CT interpreted by me (1pt min.). @ -No acute findings in chest/abdomen/pelvis. U/S interpreted by me (1pt. min.). @ -None done What testing was considered but not performed or refused? (CT, X-rays, U/S, l abs)? Why? @ -None What meds were considered but not given or refused? Why? @ -None Did you discuss the management of the patient with other professionals (professionals i.e. , PA, AUTOMOT[employer] ADVISOR, lab, RT, psych nurse, hospice social worker, director educational radio, teacher, aircraft electronics technical officer, case hardener)? Give summary @ -Spoke to Dr. Mann and advised of findings. He advised continue IV fluids overnight and he will reassess in the morning. Was smoking cessation discussed for >3mins.? @ -No Was critical care preformed (if so, how long)? @ -No Were there social determinants of health that impacted care today? How? (Homelessness, low income, unemployed, alcoholism, drug addiction, transportation, low edu. Level, literacy, decrease access to med. care, fpc, rehab)? @ -No Was there de-escalation of care discussed even if they declined (Discuss DNR or withdrawal of care, Hospice)? DNR status @ -No What co-morbidities impacted this encounter? (DM, HTN, Smoking, COPD, CAD, Cancer, CVA, ARF, Chemo, Hep., AIDS, mental health diagnosis, sleep apnea, morbid obesity)? @ -None Was patient admitted / discharged? Hospital course, mention meds given and route, prescriptions, significant lab abnormalities, going to OR and other pertinent info. @ -Patient care received from Brittni Rodriguez PA-C. Patient sent by Dr. Mann for concerns of sepsis due to history of sepsis and patient having chills and tremors in office. Most lab work received except for UA and stool cultures. WBC 8.0. Hypomagnesia already addressed by Brittni. UA also unremarkable with stool culture pending. Spoke to Dr. Mann and advised of findings. He advised continue IV fluids overnight and he will reassess in the morning. Discussed patient with Dr. Munoz. Undiagnosed new problem with uncertain prognosis? @ -No Drug Therapy requiring intensive monitoring for toxicity (Heparin, Nitro, Insulin, Cardizem)? @ -No Were any procedures done? @ -No Diagnosis/symptom? @ -Gastroenteritis Acute, or Chronic, or Acute on Chronic? @ -Acute Uncomplicated (without systemic symptoms) or Complicated (systemic symptoms)? @ -Complicated Side effects of treatment? @ -No Exacerbation, Progression, or Severe Exacerbation? @ -No Poses a threat to life or bodily function? How? (Chest pain, [place], [place], pneumonia, PE, COPD, DKA, ARF, appy, cholecystitis, CVA, Diverticulitis, Homicidal, Suicidal, threat to staff... and all critical care pts) @ -No (Leonardo Alexandre) - Lab Data Lab Results 10/27/24 10/27/24 10/27/24 Range/Units 14:00 14:00 14:00 WBC 8.03 (4.50-10.00) 10*3/uL RBC 4.40 (4.10-5.20) 10*6/uL Hgb 12.3 (12.0-15.0) g/dL Hct 35.8 L (37.2-46.3) % MCV 81.4 (80.0-97.0) fL MCH 28.0 (27.0-32.0) pg MCHC 34.4 (32.0-37.0) g/dL Plt Count 226 (140-440) 10*3/uL MPV 11.0 (9.5-12.2) fL Immature Gran % (Auto) 0.5 % Neutrophils % 89.1 % Lymphocytes % 7.8 % Monocytes % 2.5 % Eosinophils % 0.0 % Basophils % 0.1 % Immature Gran # 0.04 (0.00-0.04) 10*3/uL Neutrophils # 7.15 (1.80-7.70) 10*3/uL Lymphocytes # 0.63 L (0.90-5.00) 10*3/uL Monocytes # 0.20 (0.20-1.00) 10*3/uL Eosinophils # 0.00 L (0.04-0.35) 10*3/uL Basophils # 0.01 (0.00-0.10) 10*3/uL Sodium 139 (137-145) mmol/L Potassium 3.5 (3.5-5.1) mmol/L Chloride 105 (98-107) mmol/L Carbon Dioxide 24 (22-30) mmol/L Anion Gap 10 mmol/L BUN 12 (7-17) mg/dL Creatinine 0.71 (0.52-1.04) mg/dL Est GFR (CKD-EPI)AfAm >90 (>60 ml/min/1.73 sqM) Est GFR (CKD-EPI)NonAf 89 (>60 ml/min/1.73 sqM) Glucose 141 H (74-99) mg/dL Plasma Lactic Acid [place] 1.6 (0.7-2.0) mmol/L Calcium 10.2 (8.4-10.2) mg/dL Magnesium 1.4 L (1.6-2.3) mg/dL Total Bilirubin 0.7 (0.2-1.3) mg/dL AST 24 (14-36) U/L ALT 19 (4-34) U/L Alkaline Phosphatase 102 (38-126) U/L Total Protein 7.5 (6.3-8.2) g/dL Albumin 4.6 (3.5-5.0) g/dL Amylase 54 (30-110) U/L Lipase 135 (23-300) U/L Urine Color Urine Appearance (Clear) Urine pH (5.0-8.0) Ur Specific [place] (1.001-1.035) Urine Protein (Negative) Urine Glucose (UA) (Negative) Urine Ketones (Negative) Urine Blood (Negative) Urine Nitrite (Negative) Urine Bilirubin (Negative) Urine Urobilinogen (<2.0) mg/dL Ur Leukocyte Esterase (Negative) Influenza Type A (PCR) (Not Detectd) Influenza Type B (PCR) (Not Detectd) RSV (PCR) (Not Detectd) SARS-CoV-2 (PCR) (Not Detectd) 10/27/24 10/27/24 Range/Units 14:00 17:45 WBC (4.50-10.00) 10*3/uL RBC (4.10-5.20) 10*6/uL Hgb (12.0-15.0) g/dL Hct (37.2-46.3) % MCV (80.0-97.0) fL MCH (27.0-32.0) pg MCHC (32.0-37.0) g/dL Plt Count (140-440) 10*3/uL MPV (9.5-12.2) fL Immature Gran % (Auto) % Neutrophils % % Lymphocytes % % Monocytes % % Eosinophils % % Basophils % % Immature Gran # (0.00-0.04) 10*3/uL Neutrophils # (1.80-7.70) 10*3/uL Lymphocytes # (0.90-5.00) 10*3/uL Monocytes # (0.20-1.00) 10*3/uL Eosinophils # (0.04-0.35) 10*3/uL Basophils # (0.00-0.10) 10*3/uL Sodium (137-145) mmol/L Potassium (3.5-5.1) mmol/L Chloride (98-107) mmol/L Carbon Dioxide (22-30) mmol/L Anion Gap mmol/L BUN (7-17) mg/dL Creatinine (0.52-1.04) mg/dL Est GFR (CKD-EPI)AfAm (>60 ml/min/1.73 sqM) Est GFR (CKD-EPI)NonAf (>60 ml/min/1.73 sqM) Glucose (74-99) mg/dL Plasma Lactic Acid [place] (0.7-2.0) mmol/L Calcium (8.4-10.2) mg/dL Magnesium (1.6-2.3) mg/dL Total Bilirubin (0.2-1.3) mg/dL AST (14-36) U/L ALT (4-34) U/L Alkaline Phosphatase (38-126) U/L Total Protein (6.3-8.2) g/dL Albumin (3.5-5.0) g/dL Amylase (30-110) U/L Lipase (23-300) U/L Urine Color Light Yellow Urine Appearance Clear (Clear) Urine pH 6.0 (5.0-8.0) Ur Specific [place] 1.021 (1.001-1.035) Urine Protein Trace H (Negative) Urine Glucose (UA) Negative (Negative) Urine Ketones Negative (Negative) Urine Blood Negative (Negative) Urine Nitrite Negative (Negative) Urine Bilirubin Negative (Negative) Urine Urobilinogen <2.0 (<2.0) mg/dL Ur Leukocyte Esterase Negative (Negative) Influenza Type A (PCR) Not Detected (Not Detectd) Influenza Type B (PCR) Not Detected (Not Detectd) RSV (PCR) Not Detected (Not Detectd) SARS-CoV-2 (PCR) Not Detected (Not Detectd) Disposition <Brittni Shepherd - Last Filed: 10/27/24 16:46> Time of Disposition: 18:40 Decision Date: 10/27/24 Decision Time: 18:40 <Leonardo Alexandre - Last Filed: 10/27/24 19:57> Clinical Impression: Gastroenteritis, Hypomagnesemia Disposition: ADMITTED IP TO THIS HOSP Condition: Fair
[2024-10-27] MEDS: SODIUM CHLORIDE 0.9% 1,000 ML IV ONE (14:06)
[2024-10-27] MEDS: PANTOPRAZOLE 40 MG/10 ML VIAL IVP STA (14:07)
[2024-10-27 14:10] LABS: Basophils # (A) 0.01 10*3/uL (0.00-0.10); Basophils % (A) 0.1 %; HCT 35.8 % (37.2-46.3); HGB 12.3 g/dL (12.0-15.0); Lymphocytes # (A) 0.63 10*3/uL (0.90-5.00); Lymphocytes % (A) 7.8 %; MCHC 34.4 g/dL (32.0-37.0); MCV 81.4 fL (80.0-97.0); Monocytes % (A) 2.5 %; Neutrophils # (A) 7.15 10*3/uL (1.80-7.70); Neutrophils % (A) 89.1 %; Platelet Count 226 10*3/uL (140-440); RDW 15.4 % (11.5-14.5); WBC 8.03 10*3/uL (4.50-10.00)
[2024-10-27] MEDS: ONDANSETRON 4 MG/2 ML VIAL IVP STA (14:10)
[2024-10-27] MEDS: MORPHINE SULFATE 4 MG/ML SYRINGE IVP STA (14:13)
[2024-10-27] MEDS: SODIUM CHLORIDE 0.9% 1,000 ML IV STA (14:19)
[2024-10-27 14:27] LABS: ALT 19 U/L (4-34); AST 24 U/L (14-36); African American GFR (CKD) >90 (>60 ml/min/1.73 sqM); Albumin 4.6 g/dL (3.5-5.0); Alkaline Phosphatase 102 U/L (38-126); Amylase 54 U/L (30-110); Anion Gap 10 mmol/L; Blood Urea Nitrogen 12 mg/dL (7-17); Calcium 10.2 mg/dL (8.4-10.2); Carbon Dioxide 24 mmol/L (22-30); Chloride 105 mmol/L (98-107); Magnesium 1.4 mg/dL (1.6-2.3); Non-African American GFR(CKD) 89 (>60 ml/min/1.73 sqM); Potassium 3.5 mmol/L (3.5-5.1); Sodium 139 mmol/L (137-145); Total Protein 7.5 g/dL (6.3-8.2)
[2024-10-27 14:42] LABS: Glucose 141 mg/dL (74-99); Total Bilirubin 0.7 mg/dL (0.2-1.3)
[2024-10-27 14:51] LABS: Influenza A Not Detected (Not Detectd); Influenza B Not Detected (Not Detectd); RSV Not Detected (Not Detectd)
--- NOTE | 2024-10-27 14:59 | CT ---
EXAMINATION TYPE: CT ChestAbdPelvis wo con DATE OF EXAM: 10/27/2024 COMPARISON: CT abdomen and pelvis dated 03/20/2024. No prior CT of the chest. CLINICAL INDICATION: Female, 64 years old with history of Chest pain, abdominal pain, N/V; PHH, CAP p ain, N/V/D. TECHNIQUE: CT scan of the thorax, abdomen and pelvis is performed without IV contrast. CT DLP: 1567.[address] CTDI: mGy Automated exposure control for dose reduction was used. FINDINGS: CT chest: Lungs are clear. There is no airspace consolidation. There is no abnormal interstitial density. There is no pleural effusion or pneumothorax. The great vessels the chest are normal with no mediastinal, hilar or axillary adenopathy. There are no focal osseous lesions. CT scan of the abdomen and pelvis: There are postsurgical changes at the GE junction. There are surgical absence of the gallbladder. There is a stable 14.7 mm ill-defined hypodensity in the anterior segment of the right lobe of the li candelario. It is likely a benign hemangioma or cyst. There is no renal calcifications or hydronephrosis. The caliber of the abdominal aorta is normal. There is no focal mass or organomegaly. The pancreas, spleen or adrenal glands. The bowel loops are normal in caliber and no evidence of obstruction or inflammation. There are surgical absence of uterus. There is no pelvic mass or adenopathy. There are postsurgical changes of laminectomy and fusion from L2 through S1. IMPRESSION: 1. No significant abnormalities within the chest. No acute cardiopulmonary disease. 2 postsurgical changes of cholecystectomy, GE junction, hysterectomy, and lumbar fusion. 3. No acute changes within the abdomen or pelvis. [facility], , 10/27/2024 2:56 PM
[2024-10-27] MEDS: MAGNESIUM OXIDE 400 MG TAB PO STA (15:11)
[2024-10-27 15:26] LABS: Lipase 135 U/L (23-300)
[2024-10-27] MEDS: METOCLOPRAMIDE 5 MG/ML 2 ML VIAL IVP STA (15:36)
[2024-10-27 18:13] LABS: Appearance,Urine Clear (Clear); Bilirubin,Urine Negative (Negative); Blood,Urine Negative (Negative); Color,Urine Light Yellow; Glucose,Urine (UA) Negative (Negative); Ketones,Urine Negative (Negative); Leukocyte Esterase,Urine Negative (Negative); Nitrite,Urine Negative (Negative); Protein,Urine Trace (Negative); Specific Gravity,Urine 1.021 (1.001-1.035); Urobilinogen,Urine <2.0 mg/dL (<2.0)
[2024-10-27] MEDS ORDERED: MORPHINE SULFATE 4 MG/ML SYRINGE IV PRN (18:40)
[2024-10-27] MEDS ORDERED: ACETAMINOPHEN TAB 325 MG TAB PO PRN (18:40)
[2024-10-27] MEDS ORDERED: NALOXONE 0.4 MG/ML 1 ML VIAL IV PRN (18:40)
[2024-10-27] MEDS: SODIUM CHLORIDE 0.9% 1,000 ML IV SCH (18:47)
[2024-10-27] MEDS: ONDANSETRON 4 MG/2 ML VIAL IVP PRN (21:26)
[2024-10-27] MEDS: DULoxetine HCL 30 MG CAPSULE.DR PO SCH (21:56)
[2024-10-27] MEDS: PANTOPRAZOLE 40 MG TABLET PO SCH (21:56)
[2024-10-27] MEDS: PREGABALIN 75 MG CAP PO SCH (21:57)
[2024-10-27] MEDS: HYDROcodone/APAP 7.5-325MG 1 EACH TAB PO SCH (21:57)
--- NOTE | 2024-10-28 00:03 | HP ---
HISTORY AND PHYSICAL HISTORY OF PRESENT ILLNESS: Mohini Hayden came to the hospital with rigors, chills, shaking chills, lightheaded, dizziness, cough, congestion, shortness of breath. Currently, she is saturating high 90s on room air, where she was 92 on room air earlier. Blood pressure 120 to 130s over 80s, temperature 98, pulse 71, respiratory rate 16 to 18. Workup in the ER for dehydration was given IV fluid boluses which gave her overnight. We ordered chest, abdomen and pelvis CTs, the liver has a 14.7 mm nodule, unchanged, likely a benign hemangioma. Otherwise, CTs, chest and abdomen were normal. We will make sure her urine looks good, make sure she has no urosepsis causing severe rigors and chills. She has gastroenteritis, nausea, vomiting, diarrhea for the last 2 to 3 days. EKG shows sinus arrhythmia. White count is 8.03, hemoglobin is 12.3, sodium 139, potassium 3.5, glucose 141, magnesium low at 1.4 with a bolus of magnesium. No signs of UTI and no influenza RSV PCR in 6 hours. Fluid bolus her and get her discharged home tomorrow. She is doing better with gastroenteritis, dehydration, COPD, bronchitis. PROGNOSIS: Guarded. Please see further orders. MMODL / IJN: [id number] /
[2024-10-28 07:31] VITALS: PULSE 82; RESP 18
[2024-10-28] MEDS: ATORVASTATIN 10 MG TAB PO SCH (09:06)
[2024-10-28] MEDS: hydroCHLOROthiazide 25 MG TAB PO SCH (09:06)
[2024-10-28] MEDS: LOSARTAN 50 MG TAB PO SCH (09:06)
[2024-10-28 09:36] LABS: Basophils # (A) 0.02 X 10*3/uL (0.00-0.10); Basophils % (A) 0.4 %; Eosinophils # (A) 0.07 X 10*3/uL (0.04-0.35); Eosinophils % (A) 1.3 %; HGB 10.2 g/dL (12.0-15.0); Lymphocytes # (A) 1.32 X 10*3/uL (0.90-5.00); Lymphocytes % (A) 24.8 %; MCH 26.9 pg (27.0-32.0); MCHC 31.9 g/dL (32.0-37.0); MCV 84.4 FL (80.0-97.0); Mean Platelet Volume 11.6 FL (9.5-12.2); Monocytes # (A) 0.43 X 10*3/uL (0.20-1.00); Monocytes % (A) 8.1 %; NRBC Per 100 WBC 0 X 10*3/uL (0.00-0.01); Neutrophils # (A) 3.47 X 10*3/uL (1.80-7.70); Platelet Count 179 X 10*3/uL (140-440); RBC 3.79 X 10*6/uL (4.10-5.20); RDW 15.5 % (11.5-14.5); WBC 5.33 X 10*3/uL (4.50-10.00)
[2024-10-28 09:45] LABS: ALT 17 U/L (8-44); AST 21 U/L (13-35); Albumin 3.6 g/dL (3.8-4.9); Albumin/Globulin Ratio 1.71 Ratio (1.60-3.17); Alkaline Phosphatase 76 U/L (41-126); BUN/Creat Ratio 13.43 Ratio (12.00-20.00); Blood Urea Nitrogen 9.4 mg/dL (9.0-27.0); Calcium 9.2 mg/dL (8.7-10.3); Carbon Dioxide 24.6 mmol/L (21.6-31.8); Chloride 108 mmol/L (96-109); Globulin 2.1 g/dL (1.6-3.3); Glucose 99 mg/dL (70-110); Potassium 3.6 mmol/L (3.5-5.5); Sodium 144 mmol/L (135-145); Total Bilirubin 0.4 mg/dL (0.3-1.2); Total Protein 5.7 g/dL (6.2-8.2)
[2024-10-28 14:29] VITALS: BP 128/72; TEMP 98.8
== END 2024-10-28 15:34 | disposition home or self-care (01) ==
LOC: EC 12:43 → 6NMEDSUR 19:25 → 4SSUR 20:31
PROVIDERS: ADMIT Family Medicine; ATTEND Family Medicine
DX: K52.9 Noninfective gastroenteritis and colitis, unspecified (principal); E83.42 Hypomagnesemia; E86.0 Dehydration; K21.9 Gastro-esophageal reflux disease without esophagitis; I10 Essential (primary) hypertension; E78.5 Hyperlipidemia, unspecified; K76.89 Other specified diseases of liver; I49.8 Other specified cardiac arrhythmias; J44.89 Other specified chronic obstructive pulmonary disease; Z79.891 Long term (current) use of opiate analgesic; Z79.899 Other long term (current) drug therapy; Z87.891 Personal history of nicotine dependence; Z11.52 Encounter for screening for COVID-19; Z11.59 Encounter for screening for other viral diseases
CPT/HCPCS: 96361 ×3; 96376; 96374; 96375; 99285; 36415; 93005; 80053 ×2; 82150; 83605; 83690; 83735; 85025 ×2; 81003; 87040; 87324; 87045; 87046; 87636; 71250; 74176; G0378 ×3; J2270; J2765; J2405; J2470